=== PATIENT | female | born 1935 | race Caucasian/White ===

== ENCOUNTER 2019-02-15 16:57 | Inpatient (IN) ==
[2019-02-15 17:52] LABS: URINE SOURCE CATH
[2019-02-15 17:55] LABS: BILIRUBIN URINE SMALL (NEGATIVE); BLOOD URINE MODERATE (NEGATIVE); COLOR YELLOW; GLUCOSE URINE NEGATIVE (NEGATIVE); KETONE URINE NEGATIVE (NEGATIVE); LEUKOCYTES URINE LARGE (NEGATIVE); NITRITE URINE NEGATIVE (NEGATIVE); PH URINE 5.5; PROTEIN URINE 70 mg/dL (NEGATIVE); SP GRAVITY URINE 1.016; TURBIDITY URINE TURBID (CLEAR); UROBILINOGEN URINE 2 mg/dL (NORMAL)
[2019-02-15] MEDS ORDERED: ROCEPHIN IV ONE (17:58)
[2019-02-15] MEDS ORDERED: MORPHINE IV ONE (18:01)
[2019-02-15] MEDS ORDERED: ZOFRAN IV ONE (18:02)
[2019-02-15 18:04] LABS: URINE WBC TNTC /HPF (<10)
[2019-02-15 18:05] LABS: BASO# 0.03 X1000 (0.0-0.2); BASO% 0.2 % (0.0-0.8); EOS# 0.01 X1000 (0.0-0.7); EOS% 0.1 % (0.0-10.0); HEMATOCRIT 40.9 % (37.0-47.0); HEMOGLOBIN 13.2 g/dL (12.0-16.0); IMM GRAN# 0.16 X1000 (0.0-0.04); IMM GRAN% 0.9 % (0.0-0.5); LYMPH# 1.33 X1000 (1.2-3.4); LYMPH% 7.7 % (20.5-51.1); MCH 25.2 PG (27-31); MCHC 32.3 g/dL (33-37); MCV 78.1 FL (81-99); MONO# 0.98 X1000 (0.11-0.59); MONO% 5.7 % (1.7-9.3); NEUT# 14.66 X1000 (1.4-6.5); NEUT% 85.4 % (42.2-75.2); PLT 200 X1000 (130-400); RBC 5.24 XMIL (4.2-5.4); RDW 19.5 % (11.5-14.5); WBC 17.17 X1000 (4.8-10.8)
[2019-02-15 18:06] LABS: LYMPHS 9 % (21-51); MONO 6 % (1-9); SEGS 85 % (42-75); UR EPITHELIAL CELLS <10 /HPF (<10); URINE BACTERIA 4+ /HPF; URINE RBC 20-40 /HPF (<10)
[2019-02-15 18:07] LABS: URINE CASTS GRANULAR PRESENT; URINE CRYSTALS NONE SEEN; URINE SMALL ROUND CELLS NONE SEEN; URINE YEAST NONE SEEN
[2019-02-15 18:13] LABS: INR 1.06; PROTIME 14.3 Seconds (11.0-16.0)
[2019-02-15 18:14] LABS: PTT 30.3 Seconds (22.3-41.8)
[2019-02-15 18:23] LABS: ALBUMIN 3.3 g/dL (3.5-5.0); CALCIUM 8.5 mg/dL (8.8-10.2); CREATININE 3.5 mg/dL (0.5-0.9); POTASSIUM 4.5 mmol/L (3.5-5.1); TOTAL BILIRUBIN 2.1 mg/dL (0.20-1.00); TOTAL PROTEIN 6.5 g/dL (6.3-8.3)
[2019-02-15 18:26] LABS: BLOOD TYPE ARTERIAL; HCO3-(ACT) 25.6 mmoll (20.0-26.0); METHB 1.3 % (0.0-1.5); O2(CT) 17.9 mL/dL (15.0-23.0); PCO2(98.6) 53 mmHg (35-45); PO2(98.6) 67 mmHg (60-100); SAMPLE BLOOD; SAO2 95.5 % (95.0-100.0); THB 13.8 g/dL (11.5-17.4); pH(98.6) 7.33 (7.35-7.45)
[2019-02-15 18:28] LABS: ALLEN TEST YES; MODALITY CANNULA
[2019-02-15] MEDS ORDERED: NS 1,000 ML IV ONE ×3 (18:28→20:53)
[2019-02-15 18:37] LABS: CK INDEX 0.9 (0.0-2.5); CK-MB 5.43 ng/mL (0.0-5.0)
--- NOTE | 2019-02-15 18:39 | EKG Report ---
Test Performed on : 02/15/2019 5:37:07 PM Test Reason : WEAKNESS Blood Pressure : / mmHG Vent. Rate : 102 BPM Atrial Rate : 102 BPM P-R Int : 142 ms QRS Dur : 092 ms QT Int : 358 ms P-R-T Axes : 064 076 076 degrees QTc Int : 466 ms Sinus tachycardia. with premature atrial complexes. in a pattern of bigeminy. ST elevation, consider inferior injury or acute infarct ACUTE TN / STEMI Consider right ventricular involvement in acute inferior infarct Abnormal ECG When compared with ECG of 15-FEB-2019 17:32, (Unconfirmed) premature atrial complexes. are now present Unconfirmed Result
--- NOTE | 2019-02-15 18:52 | PROVIDER DOCUMENTATION ---
This chart was entered by Leatha Baxter Scribe, acting as scribe for Faby Henriquez MD. HPI-General Adult - General Source: patient, EMS (first response) - History of Present Illness -Gen Adult Nature of Presenting Problems: 83 yowf presents to the ed via ems with multiple complaints. per ems pt was sitting in the floor when they aos and could not get herself up. they used a stacy extrusion die corrector to lift pt to stretcher. pt sts she has had n/v/x1 today, weakness and fatigue, decreased appetite, sob and strong smell to urine. pt on exam c/o abd pain with palpation and is in mild distress Location of Pain/Injury: reports: generalized (weakness and fatigue) Quality of Pain: reports: other (c/o fatigue and weakness but no pain) Severity: reports: moderate Onset/Duration: reports: unsure Timing: reports: still present Context/Activities at Onset: reports: light activity Modifying Factors: improves with: nothing Associated Symptoms: reports: genitourinary problems, loss of appetite, malaise, nausea, shortness of breath, vomiting (x1), weakness, trouble walking. denies: chest pain, diarrhea, fever/chills, headaches, syncope Similar Symptoms Previously?: No Recently seen or treated by another doctor?: No <Faby Henriquez - Last Filed: 02/15/19 18:50> <Tj Fam - Last Filed: 02/15/19 20:24> - General Chief Complaint: Weakness Stated Complaint: weakness Time Seen by Provider: 02/15/19 17:03 Allergies/Adverse Reactions: Patient Allergies Allergy/AdvReac Type Severity Reaction Status Date / Time No Known Allergies Allergy Verified 02/15/19 19:51 Home Medications: Home Medication List Medication Instructions Recorded Confirmed Last Taken Type Allopurinol [Zyloprim] 300 mg PO DAILY 01/18/12 11/13/18 01/19/12 09:00 History Aspirin 325 mg PO DAILY 01/18/12 11/13/18 01/13/12 09:00 History Furosemide 80 mg PO DAILY 01/18/12 11/13/18 01/19/12 09:00 History Ipratropium/Albuterol Sulfate 3 ml IH 4X01/18/12 11/13/18 11/13/18 History [Iprat-Albut 0.5-3(2.5) mg/3 ml] Lisinopril/Hydrochlorothiazide 1 each PO DAILY 01/18/12 11/13/18 01/19/12 09:00 History [Lisinopril-Hctz 20-12.5 mg Tab] Metformin HCl 500 mg PO DAILY 01/18/12 11/13/18 01/19/12 09:00 History Review of Systems - Adult - REVIEW OF SYSTEMS - ADULT Constitutional: reports: see HPI, fatique. denies: chills, fever Eyes: reports: no symptoms reported Ears, Nose, Mouth & Throat: reports: no symptoms reported Cardiovascular: reports: see HPI, edema. denies: chest pain, palpitations Respiratory: reports: see HPI, shortness of breath, wheezing. denies: cough Gastrointestinal: reports: see HPI, nausea, vomiting. denies: abdominal pain, diarrhea Genitourinary: reports: see HPI, frequent UTI's, other (strong urine odor) Musculoskeletal: reports: see HPI, other (generalized weakness) Integumentary: reports: no symptoms reported Neurological: denies: dizziness/vertigo, headache/migraines Psychiatric: reports: no symptoms reported Endocrine: reports: no symptoms reported Hematologic/Lymphatic: reports: no symptoms reported Allergic/Immunologic: reports: no symptoms reported All Other Systems: Reviewed and Negative <Faby Henriquez - Last Filed: 02/15/19 18:50> Past History - Adult - PAST MEDICAL HISTORY-ADULT Review of Records: reports: Old Records Reviewed, Nursing Assessment Review, Medications Reviewed, Social history reviewed & non-contributory. Major Childhood Illnesses: reports: denies history Cardiovascular: reports: HTN Respiratory: reports: COPD, sleep apnea Gastrointestinal: reports: GERD Obstetrical/Gynecological: reports: denies history Genitourinary: reports: denies history Musculoskeletal: reports: denies history Neurological: reports: denies history Endocrine/Immune: reports: Diabetes Diabetes Type: Type 2 Other Conditions: reports: denies history - PRIOR SURGERIES/PROCEDURES Surgical/Procedure History: reports: joint replacement, back/neck - IMMUNIZATION STATUS Childhood Immunizations: See Nurse Assessment Flu Vaccine: See Nurse Assessment - FAMILY HISTORY Family History: reviewed, not pertinent - SOCIAL HISTORY Smoking: quit greater than 1 year Substance Use: denies Living Situation: family <Faby Henriquez - Last Filed: 02/15/19 18:50> Physical Exam-General - PHYSICAL EXAM-ADULT Initial Vital Signs Reviewed: Yes - CONSTITUTIONAL General Appearance: alert, mild distress, obese - EYES Eyes: PERRL/EOMI, pink conjunctivae - HEAD, EARS, NOSE, MOUTH & THROAT HENMT: moist mucous membranes - NECK Neck: full range of motion, supple, normal inspection - RESPIRATORY Respiratory: chest non-tender, wheezing, increased rate (31) - CARDIOVASCULAR Cardiovascular: normal peripheral pulses, tachycardia (103) - CHEST (BREASTS) Chest/Breast: deferred - GASTROINTESTINAL (ABDOMEN) Abdominal Exam: soft, tenderness (generalized), other (c/o nausea) - GENITOURINARY Female Genitalia/Pelvic Exam: deferred, other (strong odor of urine) Rectal Exam: deferred Hemoccult Exam: deferred - MUSCULOSKELETAL Back Exam: no CVA tenderness, no vertebral tenderness Extremity: normal capillary refill, pelvis stable, other (unable to ambulate secondary to weakness and fatigue per pt) - SKIN Integumentary: normal color, normal turgor, warm/dry - NEUROLOGIC Neurologic: grossly normal - PSYCHIATRIC Psych/Mental Status: normal mood/affect, normal thought content, normal thought process, oriented x 3 <Faby Henriquez - Last Filed: 02/15/19 18:50> Progress - PLAN OF CARE/RESULTS Result Diagrams: 02/15/19 17:45 02/15/19 17:45 - REASSESSMENT Reassessment #1 Time Reassessed: 17:38 (dr henriquez at bedside ) Status: unchanged - EKG 1 Time of EKG reading by physician:: 17:37 EKG Read and Signed by:: Faby Henriquez EKG Interpretation (*Must complete 3 of following elements*): Abnormal Rate: 102 Rhythm: sinus tach w/ premature atrial complexes inpattern bigeminy QRS: other (q wave in 3) Comments: nonspecific EKG, all changes noted by dr henriquez - CHANGE OF SHIFT REPORT (ED Provider) 1 Report Given and Care Transferred to:: DR Fam Time of Transfer: 19:00 Items Pending: Labs <Faby Henriquez - Last Filed: 02/15/19 18:50> - PLAN OF CARE/RESULTS Progress/Plan/Lab Results: Vital Signs - 8 hr 02/15/19 17:09 02/15/19 18:01 02/15/19 18:30 Temperature 98 F Pulse Rate 99 H 103 H 100 H Respiratory Rate 31 H 26 H 23 Blood Pressure 104/98 172/116 148/82 O2 Sat by Pulse Oximetry 97 94 L 94 L 02/15/19 19:48 Temperature Pulse Rate 92 H Respiratory Rate 20 Blood Pressure 126/86 O2 Sat by Pulse Oximetry 95 Laboratory Results - last 24 hr 02/15/19 02/15/19 02/15/19 17:45 17:45 17:45 WBC 17.17 H RBC 5.24 Hgb 13.2 Hct 40.9 MCV 78.1 L MCH 25.2 L MCHC 32.3 L RDW Std Deviation 19.5 H Plt Count 200 MPV Not Reportable Immature Gran % (Auto) 0.9 H Neut % (Auto) 85.4 H Lymph % (Auto) 7.7 L Bea[place]gard % (Auto) 5.7 Eos % (Auto) 0.1 Baso % (Auto) 0.2 Immature Gran # (Auto) 0.16 H Neut # (Auto) 14.66 H Lymph # (Auto) 1.33 Bea[place]gard # (Auto) 0.98 H Eos # (Auto) 0.01 Baso # (Auto) 0.03 Segmented Neutrophils 85 H Lymphocytes 9 L Monocytes 6 PT 14.3 INR 1.06 PTT (Actin FS) 30.3 Specimen Type Sample Site pH pCO2 pO2 HCO3 Base Excess Oxyhemoglobin ABG O2 Sat (Calculated) ABG O2 Saturation ABG Carboxyhemoglobin ABG Methemoglobin Dariusz Test A-a O2 Difference Total Hemoglobin Lactate Liter Flow Blood Gas Modality FiO2 % Sodium 140 Potassium 4.5 Chloride 96 L Carbon Dioxide 26 Anion Gap 18 BUN 77 H Creatinine 3.5 H Estimated GFR/1.73 m2 13 BUN/Creatinine Ratio 22 Glucose 175 H Calculated Osmolality 307 Calcium 8.5 L Total Bilirubin 2.10 H AST 94 H ALT 85 H Alkaline Phosphatase 176 H Creatine Kinase 609 H Creatine Kinase Index 0.9 CK-MB (CK-2) 5.43 H Troponin T High Sens Total Protein 6.5 Albumin 3.3 L Globulin 3.0 Albumin/Globulin Ratio 1.0 Plasma Lactate Urine Source Urine Color Urine Turbidity Urine pH Ur Specific [place] Urine Protein Ur Glucose (Stick) Ur Ketones (Stick) Urine Blood Urine Nitrite Urine Bilirubin Urobilinogen Dipstick Urine Leukocytes Urine WBC (Auto) Urine RBC (Auto) U Epithel Cells (Auto) Urine Bacteria (Auto) Urine Crystals Small Round Cells Urine Casts Urine Yeast-like Cells 02/15/19 02/15/19 02/15/19 17:45 17:45 18:16 WBC RBC Hgb Hct MCV MCH MCHC RDW Std Deviation Plt Count MPV Immature Gran % (Auto) Neut % (Auto) Lymph % (Auto) Bea[place]gard % (Auto) Eos % (Auto) Baso % (Auto) Immature Gran # (Auto) Neut # (Auto) Lymph # (Auto) [place] # (Auto) Eos # (Auto) Baso # (Auto) Segmented Neutrophils Lymphocytes Monocytes PT INR PTT (Actin FS) Specimen Type ARTERIAL Sample Site L RADIAL pH 7.33 L pCO2 53 H* pO2 67 HCO3 25.6 Base Excess 1.0 Oxyhemoglobin 92.0 L ABG O2 Sat (Calculated) 17.9 ABG O2 Saturation 95.5 ABG Carboxyhemoglobin 2.40 ABG Methemoglobin 1.3 Dariusz Test YES A-a O2 Difference 95.0 Total Hemoglobin 13.8 Lactate 1.40 Liter Flow 3.0 Blood Gas Modality CANNULA FiO2 % 32.0 Sodium Potassium Chloride Carbon Dioxide Anion Gap BUN Creatinine Estimated GFR/1.73 m2 BUN/Creatinine Ratio Glucose Calculated Osmolality Calcium Total Bilirubin AST ALT Alkaline Phosphatase Creatine Kinase Creatine Kinase Index CK-MB (CK-2) Troponin T High Sens 64 H* Total Protein Albumin Globulin Albumin/Globulin Ratio Plasma Lactate Urine Source CATH Urine Color YELLOW Urine Turbidity TURBID Urine pH 5.5 Ur Specific [place] 1.016 Urine Protein 70 A Ur Glucose (Stick) NEGATIVE Ur Ketones (Stick) NEGATIVE Urine Blood MODERATE A Urine Nitrite NEGATIVE Urine Bilirubin SMALL A Urobilinogen Dipstick 2 A Urine Leukocytes LARGE A Urine WBC (Auto) TNTC A Urine RBC (Auto) 20-40 A U Epithel Cells (Auto) <10 Urine Bacteria (Auto) 4+ Urine Crystals NONE SEEN Small Round Cells NONE SEEN Urine Casts GRANULAR PRESENT Urine Yeast-like Cells NONE SEEN 02/15/19 18:30 WBC RBC Hgb Hct MCV MCH MCHC RDW Std Deviation Plt Count MPV Immature Gran % (Auto) Neut % (Auto) Lymph % (Auto) Bea[place] % (Auto) Eos % (Auto) Baso % (Auto) Immature Gran # (Auto) Neut # (Auto) Lymph # (Auto) [place] # (Auto) Eos # (Auto) Baso # (Auto) Segmented Neutrophils Lymphocytes Monocytes PT INR PTT (Actin FS) Specimen Type Sample Site pH pCO2 pO2 HCO3 Base Excess Oxyhemoglobin ABG O2 Sat (Calculated) ABG O2 Saturation ABG Carboxyhemoglobin ABG Methemoglobin Dariusz Test A-a O2 Difference Total Hemoglobin Lactate Liter Flow Blood Gas Modality FiO2 % Sodium Potassium Chloride Carbon Dioxide Anion Gap BUN Creatinine Estimated GFR/1.73 m2 BUN/Creatinine Ratio Glucose Calculated Osmolality Calcium Total Bilirubin AST ALT Alkaline Phosphatase Creatine Kinase Creatine Kinase Index CK-MB (CK-2) Troponin T High Sens Total Protein Albumin Globulin Albumin/Globulin Ratio Plasma Lactate 1.4 Urine Source Urine Color Urine Turbidity Urine pH Ur Specific [place] Urine Protein Ur Glucose (Stick) Ur Ketones (Stick) Urine Blood Urine Nitrite Urine Bilirubin Urobilinogen Dipstick Urine Leukocytes Urine WBC (Auto) Urine RBC (Auto) U Epithel Cells (Auto) Urine Bacteria (Auto) Urine Crystals Small Round Cells Urine Casts Urine Yeast-like Cells Orders Category Date Time Status Cardiac Monitoring DIRECTED Care 02/15/19 17:26 Completed IV Insertion ORDERED Care 02/15/19 17:26 Completed Notify MD of + Sepsis Screen NOW Care 02/15/19 17:26 Completed Notify Physician As Ordered Care 02/15/19 17:26 Completed CHEST-1 VIEW [RAD] Stat Exams 02/15/19 17:[address] ABDOMEN/PELVIS W/O CONTRAST [CT] Stat Exams 02/15/19 17:43 Completed ABG [RESP] Routine Lab 02/15/19 18:16 Completed BLOOD CULTURE [BLDCUL] Stat Lab 02/15/19 17:29 Ordered CBC WITH DIFF [HEME] Stat Lab 02/15/19 17:45 Completed CK PROFILE [SP CHEM] Stat Lab 02/15/19 17:45 Completed COMPREHENSIVE METABOLIC PANEL [CHEM] Stat Lab 02/15/19 17:45 Completed LACTATE, PLASMA [CHEM] Lab 02/15/19 18:30 Completed LACTATE, PLASMA [CHEM] Lab 02/15/19 20:30 Uncollected LACTATE, PLASMA [CHEM] Lab 02/15/19 23:30 Uncollected PROTIME WITH INR [COAG] Stat Lab 02/15/19 17:45 Completed PTT [COAG] Stat Lab 02/15/19 17:45 Completed TROPONIN T HIGH SENSITIVITY Stat Lab 02/15/19 17:45 Completed URINALYSIS W/POSS RFLX CULT [URINALYSIS] Stat Lab 02/15/19 17:45 Completed URINE CULTURE [RM] Routine Lab 02/15/19 18:06 Ordered URINE MANUAL MICROSCOPIC [URINALYSIS] Stat Lab 02/15/19 17:45 Completed 0.9% Sodium Chloride Inj [Ns] 1,000 ml Med 02/15/19 18:28 Discontinued IV 999 mls/hr 0.9% Sodium Chloride Inj [Ns] 1,000 ml Med 02/15/19 18:28 Discontinued IV 999 mls/hr CefTRIAXONE [Rocephin] Med 02/15/19 17:58 Discontinued 1 gm IV NOW ONE Morphine Med 02/15/19 18:01 Discontinued 4 mg IV NOW ONE Ondansetron [Zofran] Med 02/15/19 18:02 Discontinued 4 mg IV NOW ONE Water, Sterile Inj [Sterile Water Inj.] Med 02/15/19 19:27 Discontinued 10 ml .ROUTE .STK-MED ONE Oxygen Device Stat Oth 02/15/19 17:26 Active EKG [EKG] Stat Ther 02/15/19 17:37 Draft Result Diagrams: 02/15/19 17:45 02/15/19 17:45 - CONSULTS/PCP/HOSPITALIST Notification #1 *Consult/PCP/Hospitalist*: DR GARCES Time Discussed: 20:22 Consult Disposition: Admit <Tj Fam - Last Filed: 02/15/19 20:24> Departure - Critical Care Note This patient required my direct & personal management of CC.: No <PanteraFabyambrose Moss - Last Filed: 02/15/19 18:50> - Departure Date of Disposition Decision: 02/15/19 (N) Time of Disposition Decision: 20:22 Certified Medical Emergency: Emergent <Tj Fam - Last Filed: 02/15/19 20:24> - Departure DIAGNOSIS: UTI (urinary tract infection), Pneumonia, Leukocytosis, Dehydration, Elevated troponin, LFT elevation Disposition: ADMITTED INPATIENT 09 Condition: Fair Referrals and Follow-Ups: None,PCP [Primary Care Provider] - Attestation - Physician/ ÁNGEL Attestation Patient care was provided by Advanced Practice Provider:: No The physician spent face to face time with patient:: Yes Advanced Practice Provider documentation review:: Supervising physician onsite and consulted in the evaluation and care of this patient. The physician did have a face to face encounter with the patient. <Faby Henriquez - Last Filed: 02/15/19 18:50> - Physician/ ÁNGEL Attestation The physician spent face to face time with patient:: Yes Advanced Practice Provider documentation review:: Supervising physician onsite and consulted in the evaluation and care of this patient. The physician did have a face to face encounter with the patient. <Tj Fam - Last Filed: 02/15/19 20:24> This chart was documented by the indicated scribe, (Leatha Baxter Scribe) and accurately reflects the services I performed and decisions made by , Faby Henriquez MD, as attested by the provider's signature.
--- NOTE | 2019-02-15 19:19 | Diag Imaging Result Doc PS360 ---
EXAM: CT ABDOMEN/PELVIS W/O CONTRAST 02/15/2019 HISTORY: Left side abdominal pain and tenderness TECHNIQUE: This exam was performed using automated exposure control, adjustment of mA or kV according to patient size, and/or use of iterative reconstruction technique. COMMENT: There is patchy atelectasis or pneumonia in the costophrenic sulci bilaterally. There are calcified granulomata in the spleen. There are granulomata in the liver there are small stones layering dependently in the gallbladder. The gallbladder is slightly distended. There are atherosclerotic calcifications in the aorta and its branches. There are apparent stones in the right kidney. There are some vascular calcifications in both kidneys. There is no evidence of hydronephrosis. There is infrarenal abdominal aortic aneurysm. The aorta is 2.9 cm in diameter. There is some diverticulosis in the sigmoid colon without evidence of active diverticulitis. The appendix is normal in appearance. There is a fairly large amount of stool in the rectum. There is a Sin catheter in the bladder. There is a bone island in the left ischium. There is spinal stenosis at L4-5. IMPRESSION: Cholelithiasis. Nephrolithiasis. Diverticulosis coli. Mild constipation. Bibasilar atelectasis versus pneumonia. Electronically signed by Justin Richards 02/15/2019 7:16 PM
[2019-02-15] MEDS ORDERED: STERILE WATER INJ. ONE (19:27)
--- NOTE | 2019-02-15 19:27 | Diag Imaging Result Doc PS360 ---
EXAM: CHEST-1 VIEW 02/15/2019 HISTORY: sepsis TECHNIQUE: Semiupright AP chest COMMENT: There is cardiomegaly. There is worsening right basilar atelectasis. The inspiration is less optimal than on 10/30/2018. IMPRESSION: Atelectasis versus pneumonia both lower lobes. Electronically signed by Justin Richards 02/15/2019 7:25 PM
[2019-02-15] MEDS ORDERED: ZOFRAN IV PRN (20:53)
[2019-02-15] MEDS: DUONEB (A & A) INH SCH (23:41)
[2019-02-15] MEDS ORDERED: PNEUMOVAX 23 IM ONE (23:50)
[2019-02-16] MEDS: DUONEB (A & A) INH SCH ×6 (03:21→23:15)
[2019-02-16] MEDS ORDERED: LEVAQUIN 500 MG/D5W 500 MG/100 ML IVPB IV ONE (13:16)
--- NOTE | 2019-02-16 13:43 | PROGRESS NOTE ---
DATE: 02/16/2019 This is an 83-year-old female who presented to the ER yesterday afternoon after she was found on the floor of her apartment where she lives alone, could not get up, was brought to the emergency room. She had had a preceding gastrointestinal illness manifested mostly by vomiting, not diarrhea. No blood loss. No fever or chills. In the ER, she had a CT of the abdomen showing gallstones, kidney stones, and no other pathology. She has been hurting in the left side of her ribcage. It is hard for her to sit up or be pulled up or lifted up. It is hard for her to take a deep breath. It hurts even when even we auscultate her left lung. We are going to a CT thorax plain to see if there are some fractured ribs there. I am putting her prophylactic Lovenox. She has a nasty urine that is pyuria, hematuria. Chest x-ray shows mild cardiomegaly, an area in the lung could be atelectatic versus pneumonic but she is not having a cough, has not run a fever since she has been here in the hospital. The BUN is up in the 70s, creatinine is quite high as well. We are going to rehydrate her, keep her on antibiotics. Cultures are pending. She normally takes allopurinol, we are not going to give her that because of her renal function. She normally takes metformin likewise we are not going to use it because of her renal function, and we are not going to use her Lasix and diuretic therapy because of her renal function. Legs are trace edema, otherwise negative. She has diminished breath sounds, poor inspiratory effort. We will follow her up. cc: Mehdi Michael MD
[2019-02-16 14:41] LABS: ALBUMIN 2.7 g/dL (3.5-5.0); CALCIUM 7.8 mg/dL (8.8-10.2); CREATININE 2.6 mg/dL (0.5-0.9); POTASSIUM 4.9 mmol/L (3.5-5.1); TOTAL BILIRUBIN 1.1 mg/dL (0.20-1.00); TOTAL PROTEIN 6.5 g/dL (6.3-8.3)
--- NOTE | 2019-02-16 16:13 | Diag Imaging Result Doc PS360 ---
EXAM: CT THORAX W/O CONTRAST HISTORY: pain TECHNIQUE: CT chest without intravenous contrast COMPARISON: None. FINDINGS: The heart is enlarged. Prominent atherosclerosis. The tiny bilateral pleural effusions. The vessels are distended. There are calcified left hilar lymph nodes with granuloma. There are increased interstitial markings in the lower lungs and lingular segment of the left upper lobe. There are small mediastinal nodes. Mild emphysema. IMPRESSION: 1.Cardiomegaly with pulmonary edema and tiny pleural effusions 2.Basilar atelectasis versus small infiltrates 3.There is evidence of a prior granulomatous infection 4.Prominent atherosclerosis including the coronary arteries. 5.Mild emphysema This exam was performed using automated exposure control, adjustment of mA or kV according to patient size, and/or use of iterative reconstruction technique. Electronically signed by Gildardo Chávez 02/16/2019 4:11 PM
[2019-02-16] MEDS: NS 2,000 ML IV SCH (18:01)
[2019-02-17] MEDS: DUONEB (A & A) INH SCH ×6 (03:17→23:01)
[2019-02-17] MEDS: LOVENOX SUBQ SCH (05:13)
[2019-02-17] MEDS: NS 2,000 ML IV SCH (12:55)
[2019-02-17 14:18] LABS: BE -1.9 mmoll (-3.0-3.0); BLOOD TYPE ARTERIAL; HCO3-(ACT) 23.3 mmoll (20.0-26.0); METHB 1.4 % (0.0-1.5); O2(CT) 14.8 mL/dL (15.0-23.0); PCO2(98.6) 43 mmHg (35-45); PO2(98.6) 57 mmHg (60-100); SAMPLE BLOOD; THB 11.8 g/dL (11.5-17.4); pH(98.6) 7.35 (7.35-7.45)
[2019-02-17 14:20] LABS: ALLEN TEST YES; MODALITY CANNULA
[2019-02-17 14:22] LABS: BASO# 0.05 X1000 (0.0-0.2); BASO% 0.4 % (0.0-0.8); EOS# 0.03 X1000 (0.0-0.7); EOS% 0.2 % (0.0-10.0); HEMATOCRIT 33.1 % (37.0-47.0); HEMOGLOBIN 10.8 g/dL (12.0-16.0); IMM GRAN% 2.2 % (0.0-0.5); LYMPH# 0.78 X1000 (1.2-3.4); LYMPH% 5.8 % (20.5-51.1); MCH 25.1 PG (27-31); MCHC 32.6 g/dL (33-37); MONO# 2.09 X1000 (0.11-0.59); MONO% 15.4 % (1.7-9.3); NEUT# 10.28 X1000 (1.4-6.5); PLT 99 X1000 (130-400); RDW 19.3 % (11.5-14.5); WBC 13.53 X1000 (4.8-10.8)
[2019-02-17 14:43] LABS: ALBUMIN 2.4 g/dL (3.5-5.0); CALCIUM 7.6 mg/dL (8.8-10.2); CREATININE 1.8 mg/dL (0.5-0.9); POTASSIUM 3.5 mmol/L (3.5-5.1); TOTAL BILIRUBIN 1.1 mg/dL (0.20-1.00); TOTAL PROTEIN 5.6 g/dL (6.3-8.3)
[2019-02-17 14:47] LABS: LYMPHS 11 % (21-51); MONO 6 % (1-9); SEGS 83 % (42-75)
[2019-02-17 14:48] LABS: ANISOCYTOSIS 1+; MICROCYTOSIS OCCASIONAL; POIKILOCYTOSIS OCCASIONAL; TARGET CELLS 1+
--- NOTE | 2019-02-17 15:17 | Diag Imaging Result Doc PS360 ---
EXAM: CHEST-PORTABLE INDICATION: chest pain TECHNIQUE: One view COMPARISON: 02/15/2019 FINDINGS: Centimeters the previous study, there has been development of a moderate-sized left pleural effusion with adjacent atelectasis and/or infiltrate. The atelectasis or infiltrate at the right lung base is improved. No other new consolidation is identified. Cardiac silhouette is stable. IMPRESSION: Interval development of a moderate size left effusion. Electronically signed by Bassam Stock 02/17/2019 3:15 PM
--- NOTE | 2019-02-17 15:57 | EKG Report ---
Test Performed on : 02/17/2019 2:06:06 PM Test Reason : CP Blood Pressure : / mmHG Vent. Rate : 111 BPM Atrial Rate : 111 BPM P-R Int : 144 ms QRS Dur : 104 ms QT Int : 344 ms P-R-T Axes : 064 044 062 degrees QTc Int : 467 ms Sinus tachycardia. Low voltage QRS Cannot rule out Anterior infarct , age undetermined Abnormal ECG When compared with ECG of 15-FEB-2019 17:37, (Unconfirmed) premature atrial complexes. are no longer present QRS voltage has decreased Minimal criteria for Anterior infarct are now present ST no longer elevated in Inferior leads Nonspecific T wave abnormality now evident in Anterior leads Confirmed by Mehdi Michael MD ([id number]) on 02/27/2019 6:34:14 AM
[2019-02-17] MEDS: ROCEPHIN 1 GM in NS 50 ML IV SCH (17:42)
[2019-02-17] MEDS: ZITHROMAX 500 MG/NS 500 MG/250 ML IVPB IV SCH (17:43)
[2019-02-17] MEDS: TYLENOL PO PRN (17:59)
[2019-02-18] MEDS: TYLENOL PO PRN (00:05)
[2019-02-18] MEDS: DUONEB (A & A) INH SCH ×6 (03:28→23:13)
[2019-02-18] MEDS: LOVENOX SUBQ SCH (05:43)
--- NOTE | 2019-02-18 09:33 | PROGRESS NOTE ---
DATE: 02/17/2019 SUBJECTIVE: She is having a little bit more problems breathing. OBJECTIVE: Vital signs: Temperature was 97.7, pulse was 112, respiratory rate 24, blood pressure 134/57. She had no significant presacral or pretibial edema. She had sort of a flushed face. Chest with diminished breath sounds. Abdomen soft. Regular rate and rhythm on her heart exam. DIAGNOSTIC DATA: Her white count has dropped from 17,000 to 13,530. Hematocrit has gone from 40.9 to 33.1 with some cautious rehydration. Platelet count went from 200,000 to 99,000, and we are going to repeat that on 02/18/2019. Blood gases showed pH of 7.35, pCO2 of 43, pO2 of 57, FiO2 was 36, carboxyhemoglobin was 3.9. Gases seem to be a bit better. Her BUN is now 62, creatinine 1.8. BNP is 2285. Her calcium is 7.6, albumin 2.4. Urine culture is growing out gram- negative leia which is from a cathed urine. ASSESSMENT AND PLAN: I talked to pharmacy. We have changed up her antibiotics, mostly in regards to her chest x-ray which showed sort of an evolving effusion, atelectasis on the left side. So we are doing Rocephin and Zithromax. Rocephin does cover her urine as well. cc: Mehdi Michael MD
--- NOTE | 2019-02-18 09:35 | PROGRESS NOTE ---
DATE: 02/18/2019 SUBJECTIVE: The patient seems to be a little better today. On 02/18/2019 microbiology, she is growing out E. coli from her urine, greater than 100,000 colonies, that is sensitive to Levaquin and sensitive to Rocephin. OBJECTIVE: Vital signs: Temperature is 98, pulse 100, respiratory rate 20, blood pressure 144/68, O2 saturation is 99% on nasal cannula. She was sleeping and feels a little better. ASSESSMENT AND PLAN: We are going to repeat lab today and see what is happening to her platelet count and BUN and creatinine. cc: Mehdi Michael MD
[2019-02-18 09:36] LABS: BASO# 0.06 X1000 (0.0-0.2); BASO% 0.4 % (0.0-0.8); EOS# 0.06 X1000 (0.0-0.7); EOS% 0.4 % (0.0-10.0); HEMATOCRIT 34.3 % (37.0-47.0); HEMOGLOBIN 11.3 g/dL (12.0-16.0); IMM GRAN# 0.55 X1000 (0.0-0.04); IMM GRAN% 4.1 % (0.0-0.5); LYMPH# 1.36 X1000 (1.2-3.4); LYMPH% 10.2 % (20.5-51.1); MCH 25.1 PG (27-31); MCHC 32.9 g/dL (33-37); MCV 76.1 FL (81-99); MONO# 2.38 X1000 (0.11-0.59); MONO% 17.8 % (1.7-9.3); NEUT# 8.95 X1000 (1.4-6.5); NEUT% 67.1 % (42.2-75.2); PLT 113 X1000 (130-400); RBC 4.51 XMIL (4.2-5.4); RDW 19.2 % (11.5-14.5); WBC 13.36 X1000 (4.8-10.8)
[2019-02-18 10:12] LABS: ALBUMIN 2.5 g/dL (3.5-5.0); CALCIUM 8.3 mg/dL (8.8-10.2); CREATININE 1.4 mg/dL (0.5-0.9); POTASSIUM 3.4 mmol/L (3.5-5.1); TOTAL BILIRUBIN 1.1 mg/dL (0.20-1.00); TOTAL PROTEIN 5.9 g/dL (6.3-8.3)
[2019-02-18] MEDS: NS 2,000 ML IV SCH ×2 (10:35→15:31)
[2019-02-18 10:42] LABS: LYMPHS 9 % (21-51); MONO 14 % (1-9); SEGS 77 % (42-75)
[2019-02-18] MEDS: ROCEPHIN 1 GM in NS 50 ML IV SCH (16:55)
[2019-02-18] MEDS: ZITHROMAX 500 MG/NS 500 MG/250 ML IVPB IV SCH (18:03)
[2019-02-19] MEDS: DUONEB (A & A) INH SCH ×6 (03:19→22:52)
[2019-02-19] MEDS: LOVENOX SUBQ SCH (06:32)
[2019-02-19] MEDS: NS 2,000 ML IV SCH ×2 (06:37→12:42)
--- NOTE | 2019-02-19 10:24 | Diag Imaging Result Doc PS360 ---
EXAM: CHEST-PORTABLE INDICATION: PNA TECHNIQUE: One view COMPARISON: 02/17/2019 FINDINGS: The moderate-sized left effusion with adjacent atelectasis and/or infiltrate is approximately stable. The milder right effusion with minimal adjacent atelectasis and/or infiltrate is also stable. No new consolidation is identified. Cardiac silhouette is stable. IMPRESSION: Stable chest. Electronically signed by Bassam Stock 02/19/2019 10:22 AM
[2019-02-19 10:42] LABS: BASO# 0.03 X1000 (0.0-0.2); BASO% 0.2 % (0.0-0.8); EOS# 0.07 X1000 (0.0-0.7); EOS% 0.4 % (0.0-10.0); HEMATOCRIT 36.2 % (37.0-47.0); HEMOGLOBIN 11.7 g/dL (12.0-16.0); IMM GRAN# 0.58 X1000 (0.0-0.04); IMM GRAN% 3.4 % (0.0-0.5); LYMPH# 2.09 X1000 (1.2-3.4); LYMPH% 12.3 % (20.5-51.1); MCH 24.7 PG (27-31); MCHC 32.3 g/dL (33-37); MCV 76.4 FL (81-99); MONO# 2.44 X1000 (0.11-0.59); MONO% 14.4 % (1.7-9.3); NEUT# 11.76 X1000 (1.4-6.5); NEUT% 69.3 % (42.2-75.2); PLT 145 X1000 (130-400); RBC 4.74 XMIL (4.2-5.4); RDW 19.4 % (11.5-14.5); WBC 16.97 X1000 (4.8-10.8)
[2019-02-19 10:57] LABS: ALBUMIN 2.1 g/dL (3.5-5.0); CALCIUM 8.3 mg/dL (8.8-10.2); CREATININE 1.2 mg/dL (0.5-0.9); POTASSIUM 3.6 mmol/L (3.5-5.1); TOTAL BILIRUBIN 0.9 mg/dL (0.20-1.00)
[2019-02-19 11:12] LABS: LYMPHS 12 % (21-51); MICROCYTOSIS 1+; MONO 12 % (1-9); SEGS 76 % (42-75)
[2019-02-19 11:13] LABS: LARGE PLATELETS 1+
[2019-02-19 11:14] LABS: ANISOCYTOSIS 1+
[2019-02-19] MEDS: TYLENOL PO PRN (12:49)
[2019-02-19] MEDS: ROCEPHIN 1 GM in NS 50 ML IV SCH (16:07)
[2019-02-19] MEDS: ZITHROMAX 500 MG/NS 500 MG/250 ML IVPB IV SCH (17:33)
[2019-02-19] MEDS ORDERED: LINZESS PO ONE (18:06)
[2019-02-20] MEDS: DUONEB (A & A) INH SCH ×6 (03:09→22:39)
[2019-02-20] MEDS: NS 2,000 ML IV SCH ×3 (03:14→20:35)
[2019-02-20] MEDS: LOVENOX SUBQ SCH (05:23)
--- NOTE | 2019-02-20 08:49 | Diag Imaging Result Doc PS360 ---
CHEST-PORTABLE - 02/20/2019 INDICATION: sob COMPARISON: 02/19/2019 FINDINGS: Stable moderate left basilar pleural effusion. Otherwise no infiltrates. There is probably a trace right pleural effusion which has improved. Stable cardiomegaly. IMPRESSION: Slight improvement from prior. Electronically signed by Cristiano Lynn 02/20/2019 8:46 AM
[2019-02-20] MEDS ORDERED: FLAGYL 500 MG/NS 500 MG/100 ML IVPB IV SCH (09:00)
[2019-02-20 09:40] LABS: BE -2.3 mmoll (-3.0-3.0); BLOOD TYPE ARTERIAL; METHB 1.3 % (0.0-1.5); O2(CT) 15.7 mL/dL (15.0-23.0); O2HB 91.9 % (95.0-99.0); PCO2(98.6) 38 mmHg (35-45); PO2(98.6) 64 mmHg (60-100); SAMPLE BLOOD; THB 12.1 g/dL (11.5-17.4); pH(98.6) 7.38 (7.35-7.45)
[2019-02-20 09:43] LABS: ALLEN TEST YES; MODALITY CANNULA
[2019-02-20 12:31] LABS: BASO# 0.06 X1000 (0.0-0.2); BASO% 0.3 % (0.0-0.8); EOS# 0.05 X1000 (0.0-0.7); EOS% 0.2 % (0.0-10.0); HEMATOCRIT 34.6 % (37.0-47.0); HEMOGLOBIN 11.2 g/dL (12.0-16.0); IMM GRAN# 0.79 X1000 (0.0-0.04); IMM GRAN% 3.3 % (0.0-0.5); LYMPH# 2.55 X1000 (1.2-3.4); LYMPH% 10.7 % (20.5-51.1); MCH 24.7 PG (27-31); MCHC 32.4 g/dL (33-37); MCV 76.4 FL (81-99); MONO# 2.36 X1000 (0.11-0.59); MONO% 9.9 % (1.7-9.3); NEUT# 18.02 X1000 (1.4-6.5); NEUT% 75.6 % (42.2-75.2); PLT 170 X1000 (130-400); RBC 4.53 XMIL (4.2-5.4); RDW 19.2 % (11.5-14.5); WBC 23.83 X1000 (4.8-10.8)
[2019-02-20 12:55] LABS: ALBUMIN 2.1 g/dL (3.5-5.0); CALCIUM 8.3 mg/dL (8.8-10.2); POTASSIUM 3.5 mmol/L (3.5-5.1); TOTAL BILIRUBIN 0.8 mg/dL (0.20-1.00); TOTAL PROTEIN 5.9 g/dL (6.3-8.3)
[2019-02-20] MEDS ORDERED: MERREM 1 GM in NS 50 ML IV SCH (13:00)
[2019-02-20 13:39] LABS: ANISOCYTOSIS 1+; LARGE PLATELETS 1+; LYMPHS 17 % (21-51); MICROCYTOSIS OCCASIONAL; MONO 8 % (1-9); SEGS 75 % (42-75); TARGET CELLS 1+
--- NOTE | 2019-02-20 14:14 | HISTORY AND PHYSICAL ---
HISTORY OF PRESENT ILLNESS: This is an 83-year-old female who presented to the ER via EMS with multiple complaints. She could not get up, she fell on the floor at her house and was sitting on the floor when EMS arrived, and they could not get her up. They had to use a stacy language path to lift the patient to the stretcher. She states she has had a history of nausea and vomiting one time today, weakness, general fatigue, decreased appetite, short of breath, strong smell to her urine. The patient on exam complained of abdominal pain with palpation and was in mild distress. She is generally weak and fatigued but not really having any pain. In the ER, she related that she is taking allopurinol 300 daily, aspirin 325 daily, furosemide 80 daily, DuoNebs 3 times a day, lisinopril/hydrochlorothiazide 20/12.5, metformin 500 mg daily. REVIEW OF SYSTEMS: Her primary complaint was weakness and fatigue and problems with getting around her place. Denies any visual issues. Ears, nose and throat: No sinusitis, otitis or rhinitis. Cardiovascular: She has had some edema in her lower extremities. She denies any chest pain or palpitations. Respiratory: She has been short of breath. She has been wheezing. Denies any cough. Gastrointestinal: She has not been eating well lately. She is nauseated and has vomited but denies belly pain and diarrhea. Genitourinary: She relates a history of frequent UTIs and feels like she is having strong urine odor now compatible with another UTI. Musculoskeletal: Generalized weakness, overweight, hard to move around. Skin: No lesions or rashes. Neurologic: Denies dizziness, vertigo, headaches or migraines. Psychiatric: No issues. Endocrine: She is a diabetic but not having any significant consequences from diabetes. Hematologic: No history of clots, DVTs or bleeding disorders. No issues with significant allergies. PAST MEDICAL HISTORY: She has a history of COPD, history of sleep apnea. She has had reflux disease. She has had diabetes type 2 for some time. She has had some joint surgeries on her neck and her back. She is a smoker. DATABASE: From the ER, a chest x-ray showed there was cardiomegaly, there was worsening right basilar atelectasis comparative to a recent film. So she seemed to have atelectasis in both lobes versus pneumonia in both lobes. Her CT of the abdomen and pelvis showed there was patchy atelectasis or pneumonia in the costophrenic sulci bilaterally. There are calcified granuloma in the spleen. There are granuloma in the liver. There are small stones layering dependently in the gallbladder. The gallbladder is slightly distended. There are atherosclerotic calcifications in the aorta and its branches. There are apparent stones in the right kidney. There are some vascular calcifications in both kidneys. There is no evidence of hydronephrosis. There is infrarenal abdominal aortic aneurysm. The aorta is 2.9 in diameter. There is some diverticulosis in the sigmoid colon without evidence of active diverticulitis. The appendix is normal in appearance. There is a fairly large amount of stool in the rectum. There is a Sin catheter in the bladder. There is bony island in the left ischium. There is spinal stenosis at L4-L5. Impression is cholelithiasis, nephrolithiasis, diverticulosis, mild constipation, bibasilar atelectasis versus pneumonia. Her laboratory showed a white count of 17,000, hematocrit 40.9, platelet count 200. She had a left shift. Coags showed INR was 1.06, PT was 14.3. Blood gases showed pH of 7.33, pCO2 of 53, pO2 of 67, carboxyhemoglobin 2.4 on 32% O2. Lactate was 1.4. Chemistries showed sodium 140, potassium 4.5, chloride 96, CO2 of 26, BUN was 77, creatinine was 3.5, probably from Zestoretic diuretics and thiazide. Creatinine is 3.5, likewise. BUN to creatinine ratio is 22. Glucose 175. Calcium 8.5. Total bilirubin 2.1, AST is 94, ALT is 85, alkaline phosphatase 176. CK is 609. Troponin I sensitivity was 64, presumably elevated from her renal function. Her CK index was 0.9, which is normal. Her total protein was 6.5, albumin 3.3, globulin 3, lactate was 1.2, 1.6 and 1.4. She was admitted. PHYSICAL EXAMINATION: HEENT: Head was normocephalic. Eyes were PERRL, EOMs intact. Nares patent. Oropharynx with dry mucosa. NECK: Supple. No JVD. No thyromegaly. No significant lymphadenopathy. CHEST: Diminished breath sounds bilaterally. No significant wheezing. Some rhonchi. CARDIOVASCULAR: She had regular rhythm and rate. S1 and S2 were normal. EXTREMITIES: Extremities were swollen, 1+ edema. No cords. Nontender. ABDOMEN: Obese. No hepatosplenomegaly. She was tender on her left side, and presumably this could be from this constipation seen on her films or the alleged fall. She fell on her left side, she thinks. SKIN: Clear. ADMITTING DIAGNOSIS: Based primarily on her urine which showed there was yellow turbid, negative for nitrites, large amount of leukocytes too numerous to count, 4+ bacteria, 20 to 40 RBCs. So we thought that she probably had a urinary tract infection and some COPD issues from her blood gases. Questionable infiltrates, but she had only been sick for a day. ASSESSMENT AND PLAN: She was admitted to the hospital for evaluation and treatment. cc: Mehdi Michael MD
--- NOTE | 2019-02-20 15:46 | Diag Imaging Result Doc PS360 ---
EXAM: CT ABD/PELVIS W/IV CONT ONLY HISTORY: fever, pain TECHNIQUE: CT abdomen and pelvis with intravenous contrast, but without oral contrast COMPARISON: 02/15/2019 FINDINGS: Interval development of a moderate-sized left-sided pleural effusion measuring 3.8 cm posteriorly and inferiorly in the midline. There atelectasis and infiltrates in the left lower lobe. Tiny right effusion with basilar infiltrates and atelectasis. There are multiple hypodense lesions within the liver on the current study which are not appreciated on the prior noncontrasted exam. There are several stones within the gallbladder. The spleen is not enlarged. There are scattered hepatic and splenic granuloma. No inflammation about the pancreas. Normal adrenal glands. Nonobstructive right renal stone. No renal mass. No hydronephrosis. Dilatation of the distal aorta measuring 2.9 cm. Prominent atherosclerosis. No bowel obstruction. There are many scattered colonic diverticula. There is a Sin catheter in the urinary bladder. Normal uterus. IMPRESSION: 1.Development of pleural effusions with basilar atelectasis and infiltrates 2.Multiple nonspecific liver lesions which were either present on the prior exam but not seen due to the absence of intravenous contrast or these have developed since the prior exam. 3.Cholelithiasis 4.Right nephrolithiasis 5.Severe atherosclerosis with dilatation of the distal aorta 6.Colonic diverticulosis This exam was performed using automated exposure control, adjustment of mA or kV according to patient size, and/or use of iterative reconstruction technique. Electronically signed by Gildardo Chávez 02/20/2019 3:44 PM
[2019-02-20] MEDS: NS 1,000 ML IV SCH (16:11)
[2019-02-20] MEDS: ZOSYN 3.375 GM in NS 50 ML IV SCH (20:31)
[2019-02-21] MEDS: DUONEB (A & A) INH SCH ×3 (03:02→10:56)
[2019-02-21] MEDS: ZOSYN 3.375 GM in NS 50 ML IV SCH ×2 (03:22→10:03)
[2019-02-21] MEDS: LOVENOX SUBQ SCH ×2 (05:22→19:14)
[2019-02-21 10:09] LABS: BASO# 0.11 X1000 (0.0-0.2); BASO% 0.4 % (0.0-0.8); EOS# 0.06 X1000 (0.0-0.7); EOS% 0.2 % (0.0-10.0); HEMATOCRIT 33.3 % (37.0-47.0); HEMOGLOBIN 10.7 g/dL (12.0-16.0); IMM GRAN# 0.94 X1000 (0.0-0.04); IMM GRAN% 3.2 % (0.0-0.5); LYMPH# 2.95 X1000 (1.2-3.4); MCH 24.6 PG (27-31); MCHC 32.1 g/dL (33-37); MCV 76.6 FL (81-99); MONO# 3.08 X1000 (0.11-0.59); MONO% 10.4 % (1.7-9.3); NEUT# 22.44 X1000 (1.4-6.5); NEUT% 75.8 % (42.2-75.2); PLT 215 X1000 (130-400); RBC 4.35 XMIL (4.2-5.4); RDW 19.3 % (11.5-14.5); WBC 29.58 X1000 (4.8-10.8)
[2019-02-21 10:28] LABS: LYMPHS 9 % (21-51); MONO 8 % (1-9); SEGS 83 % (42-75)
[2019-02-21 10:36] LABS: ALBUMIN 1.9 g/dL (3.5-5.0); CALCIUM 8.4 mg/dL (8.8-10.2); CREATININE 0.9 mg/dL (0.5-0.9); POTASSIUM 4.1 mmol/L (3.5-5.1); TOTAL PROTEIN 5.6 g/dL (6.3-8.3)
[2019-02-21] MEDS: NS 1,000 ML IV SCH (10:51)
--- NOTE | 2019-02-21 11:48 | PROGRESS NOTE ---
DATE: 02/20/2019 VITAL SIGNS: Temperature was 98, pulse was 55, respiratory rate 20, BP 164/49, O2 saturation is 93 on nasal cannula. She continues to do poorly. Her white count today is 23,830, hematocrit is 34.6, platelet count is 170. Her culture data, she was found to have Escherichia coli in her urine and previously had Escherichia coli in her blood but that has been changed to Bacteroides fragilis. We talked to Dr. Lj Fernandes. He recommended changing her to Zosyn exclusively seeing that her renal function is normal. He did a scan subsequently and it showed of the abdomen and pelvis that she had some liver lesions that had not been seen on the previous noncontrasted abdominal film that may represent abscesses or metastatic disease. She continues to have a dense left lower lobe pneumonia. Her electrolytes seem to be doing fine. Mental status okay. Her belly is relatively soft. She has some edema in her legs but just continues to do poorly needing supplemental oxygen that has been turned up. Her last blood gas on 02/20 today: pH was 7.38, pCO2 38, pO2 64, on 44%. Carboxyhemoglobin is 3.1. We are going to do Zosyn but we may end up changing to imipenem per Dr. Fernandes but we will try the Zosyn a couple of doses and see how she does. cc: Mehdi Michael MD
[2019-02-21] MEDS ORDERED: LANOXIN IV ONE (12:37)
[2019-02-21] MEDS ORDERED: CARDIZEM ONE (12:47)
--- NOTE | 2019-02-21 13:10 | EKG Report ---
Test Performed on : 02/21/2019 12:38:11 PM Test Reason : HIGH HEART RATE Blood Pressure : / mmHG Vent. Rate : 152 BPM Atrial Rate : 150 BPM P-R Int : 000 ms QRS Dur : 100 ms QT Int : 258 ms P-R-T Axes : 000 065 255 degrees QTc Int : 410 ms Atrial fibrillation. with rapid ventricular response. Low voltage QRS Nonspecific ST and T wave abnormality Abnormal ECG When compared with ECG of 17-FEB-2019 14:06, (Unconfirmed) Atrial fibrillation. has replaced Sinus rhythm. Non-specific change in ST segment in Inferior leads Nonspecific T wave abnormality now evident in Inferior leads Nonspecific T wave abnormality, worse in Anterolateral leads Confirmed by Mehdi Michael MD ([id number]) on 02/27/2019 6:33:07 AM
--- NOTE | 2019-02-21 14:13 | Diag Imaging Result Doc PS360 ---
US GB < RUQ (LIMITED) - 02/21/2019 INDICATION: LOOKING FOR LESIONS GALLBLADDER, LIVER TECHNIQUE: COMPARISON: CT from 02/20/2019 FINDINGS: There are multiple masses in the liver. These measure up to 3.7 cm. There is a small amount of layering sludge dependently in the gallbladder. No shadowing stones in the gallbladder. No gallbladder wall thickening. Common bile duct measures 7 mm. There is a small peripelvic right renal cyst superiorly measuring 1.3 cm. Otherwise both kidneys are normal. No hydronephrosis. The pancreas is obscured. The spleen is normal. Aorta, IVC, and main portal vein are patent. IMPRESSION: 1. Masses in the liver stable from prior. 2. Layering sludge in the gallbladder. Electronically signed by Cristiano Lynn 02/21/2019 2:10 PM
[2019-02-21] MEDS ORDERED: CARDIZEM 100 MG/NS 100 MG/100 ML IVPB IV SCH (15:03)
[2019-02-21] MEDS ORDERED: ZOSYN 4.5 GM in NS 50 ML IV SCH (16:00)
[2019-02-21] MEDS ORDERED: ZOSYN 3.375 GM in NS 50 ML IV SCH (16:00)
[2019-02-21] MEDS: PROTONIX IV SCH (16:51)
[2019-02-21] MEDS: SODIUM CHLORIDE 0.9% INJ SCH (16:51)
[2019-02-21] MEDS: ZOSYN 4.5 GM in NS 100 ML IV SCH ×2 (18:00→23:43)
[2019-02-21] MEDS ORDERED: ZOFRAN IV PRN (18:29)
[2019-02-21] MEDS ORDERED: ALBUMIN 25% IV ONE (18:30)
[2019-02-21] MEDS ORDERED: TYLENOL PO PRN (18:32)
[2019-02-21] MEDS: 1/2 NS 1,000 ML IV SCH (19:16)
[2019-02-21] MEDS ORDERED: NS 500 ML IV ONE (21:45)
--- NOTE | 2019-02-21 21:46 | OPERATIVE NOTE ---
PROCEDURE DATE: 02/21/2019 PREOPERATIVE DIAGNOSES: 1. Phlebosclerosis. 2. Bacteremia. POSTOPERATIVE DIAGNOSES: 1. Phlebosclerosis. 2. Bacteremia. PROCEDURE: Ultrasound-guided right common femoral vein central line placement. SURGEON: Aki Desouza MD TUBE OPERATOR: None. ANESTHESIA: Local, administered by the surgeon. INTRAOPERATIVE FINDINGS: Ultrasound showed good-caliber right common femoral vein. BRIEF HISTORY: An 83-year-old female presenting with some abdominal pain. She had a CT scan that showed multiple spots on her liver and she is bacteremic. It is felt that she would benefit from a central line. She had poor vein selection. Consent was obtained. DESCRIPTION OF PROCEDURE: After informed consent was obtained, the patient remained in her ICU bed. The right groin was prepped and draped in sterile fashion. We elected to use the right groin, because she already had an IV in her right neck. We prepped her at the right groin in sterile fashion. We used local anesthetic to anesthetize the skin. Under ultrasound guidance I was able to cannulate the right common femoral vein and pass a wire easily into the vein. I was able to use a Seldinger technique to dilate up the tract to place a central line in. All ports aspirated and flushed easily. We secured it in place in standard fashion. The patient tolerated the procedure well, and remained in the ICU. cc: MD Mehdi Flores MD
--- NOTE | 2019-02-21 21:48 | INFECTIOUS DISEASE CONSULT REP ---
DATE: 02/21/2019 CONCLUSION: The patient has an E. coli urinary tract infection. She also has a Bacteroides fragilis bacteremia. The origin of the bacteremia is uncertain to me at this time. RECOMMENDATIONS: I asked Dr. Michael yesterday to put the patient on Zosyn, and I today have increased the dose to 4.5 g IV every 6 hours. After 48 hours of the new dose then I will repeat the patient's blood cultures. DISCUSSION: The patient was unable at this time to give me a history and physical. According to the information in the chart the patient was found to be sitting on the floor and she could not get herself up. She was brought to the hospital. She had a history of nausea, vomiting, weakness and general fatigue. She also said she was having decreased appetite and she was dyspneic. She also had a smell to her urine. The patient's lab studies thus far show a CBC with a white count of 29,580, hemoglobin 10.7, platelet count 215,000, creatinine is 0.9, GFR is 60. Urine culture grew E. Coli. Blood culture grew Bacteroides fragilis. CT scan of the abdomen and pelvis showed bibasilar atelectasis/infiltrate, liver lesions, gallstones and colonic diverticula. Chest x-ray showed left basilar atelectasis. ALLERGIES: The patient has no known allergies. HOME MEDICATIONS: Aspirin, allopurinol, furosemide, DuoNeb, lisinopril/hydrochlorothiazide, and metformin. MEDICAL DISEASES: Positive for COPD, sleep apnea, gastroesophageal reflux disease, diabetes mellitus. The patient is a cigarette smoker. PAST SURGICAL HISTORY: Positive for joint surgeries. REVIEW OF SYSTEMS: Unable to be obtained. PHYSICAL EXAMINATION: Vital Signs: Temperature is 98.3 degrees, pulse is 156, respiratory rate is 24, blood pressure is 97/74. The patient weighs 236 pounds. General: This is an obese elderly female. She seems somewhat dyspneic at rest, and any time she moves she seems to scream in pain. Head/eyes/ears/nose/throat: No drainage noted from the nose or ears. I did not notice any white patches on her tongue. Neck: She did not seem to have pain when she moved her neck. Lungs: There were diminished breath sounds. I did not hear any rales or wheezes. Cardiovascular: Heart rate was regular. Abdomen: Was soft and did not seem to be tender. Pelvis: In the pelvic area I did not see any erythematous areas, any necrotic areas, or any areas that were inflamed. I looked anteriorly, I spread her legs apart, and then we put her on her side and we looked at the back and both buttocks and the perineum and did not find any evidence of a cellulitis or necrosis. Neurologic: The patient is awake, she can move her extremities. There is no tremor. Integument: I did not notice any rash. Thank you for the consultation. cc: MD Mehdi Sherwood MD MTDD
[2019-02-21] MEDS: XOPENEX NEB INH SCH (22:55)
[2019-02-22] MEDS: ZOSYN 4.5 GM in NS 100 ML IV SCH ×4 (04:18→22:09)
--- NOTE | 2019-02-22 05:19 | EKG Report ---
Test Performed on : 02/21/2019 10:46:51 PM Test Reason : AFIB Blood Pressure : / mmHG Vent. Rate : 076 BPM Atrial Rate : 076 BPM P-R Int : 156 ms QRS Dur : 084 ms QT Int : 364 ms P-R-T Axes : 053 030 075 degrees QTc Int : 409 ms Normal sinus rhythm. Low voltage QRS Nonspecific ST and T wave abnormality Abnormal ECG When compared with ECG of 21-FEB-2019 12:38, (Unconfirmed) Sinus rhythm. has replaced Atrial fibrillation. Vent. rate has decreased BY [address] elevation now present in Inferior leads ST no longer depressed in Lateral leads Confirmed by Víctor JUNIOR, Daquan Mahajan ([id number]) on 02/22/2019 12:23:57 PM
--- NOTE | 2019-02-22 05:27 | CONSULTATION ---
DATE OF CONSULTATION: 02/21/2019 IMPRESSION: 1. Transient atrial fibrillation with rapid ventricular rate in the setting of sepsis with Bacteroides fragilis. The patient has converted back to sinus rhythm. 2. Recent weakness as well as some nausea and vomiting prior to admission. She has had some abdominal discomfort. Clinical presentation of core suggests sepsis with probable source below the diaphragm, and positive blood cultures for Bacteroides fragilis. 3. Chronic obstructive pulmonary disease. 4. Gastroesophageal reflux. 5. Type 2 diabetes mellitus. RECOMMENDATIONS: 1. Continue to monitor rhythm for recurrence of atrial fibrillation. 2. Treat his acute sepsis as you are doing. 3. Echocardiography. HISTORY: This 83-year-old white female with past history of COPD, sleep apnea, gastroesophageal reflux disease, and type 2 diabetes mellitus was transferred from [facility] for further management of apparent sepsis and atrial fibrillation for rapid ventricular rate. She was initially admitted there on 02/15/2019 after she presented with weakness, and being found on the floor. She had had some nausea and vomiting, and poor appetite. There was also some abdominal discomfort. She was thought to have urinary tract infection and was hospitalized. She was in sinus rhythm on admission. Urinalysis suggested urinary tract infection and urine cultures grew E. Coli. Blood cultures were abnormal. However, blood cultures ultimately returned showing Bacteroides fragilis and antibiotic coverage had to be adjusted. She initially seemed to improve with decrease in white blood cell count. However, over the recent several days she has progressively gotten worse with significant rise in white blood cell count. She developed atrial fibrillation with rapid ventricular rate and was started on intravenous Cardizem. She was transferred to intensive care unit here in [facility]. In the interim, she has converted back to sinus rhythm. When I see her, she denies any chest discomfort or shortness of breath. She is not aware of any previous cardiac problems. However, she has continued to require supplemental oxygen per mask. PAST MEDICAL HISTORY: 1. Chronic obstructive pulmonary disease. 2. Diabetes mellitus type 2. 3. Sleep apnea. 4. Gastroesophageal reflux disease. PAST SURGICAL HISTORY: Several joint surgeries. ALLERGIES: She has no known drug allergies. MEDICATIONS PRIOR TO ADMISSION: As listed. SOCIAL HISTORY: She has history of cigarette smoking. FAMILY HISTORY: Noncontributory. REVIEW OF SYSTEMS: Pulmonary: Noncontributory. Gastrointestinal: Noncontributory beyond history of present illness. Constitutional: Noncontributory beyond history of present illness. Remainder of Review of Systems negative/noncontributory beyond history of present illness with 14 total systems reviewed. PHYSICAL EXAMINATION: General: Reveals an obese, elderly, white female in no distress on supplemental oxygen per mask. Blood pressure 133/66, heart rate 87 with ECG monitor showing sinus rhythm, respiratory rate 25, and oxygen saturation 93% on Venturi mask 50%. HEENT: Extraocular muscles appear intact. Mucous membranes are somewhat dry. Neck: Supple without jugular venous distention. No carotid bruits. Chest: Auscultation of the chest reveals clear chest bilaterally. Cardiac: Regular rate and rhythm without appreciable murmur or gallop. Abdomen: Soft. There is mild tenderness to palpation in the right upper quadrant. There is no rebound tenderness. Bowel sounds are normal. Extremities: Mild edema. LABORATORY DATA: White blood cell count of 29.58, hematocrit 33.3, hemoglobin 10.7 and platelet count 215,000. Sodium 140, potassium 4.1, chloride 105, carbon dioxide 23, BUN 37, and creatinine 0.9. Glucose 190. Bilirubin 1.0. AST 22. ALT 14. Alkaline phosphatase 135. Albumin 1.9. Lactate 1.3. EKG on admission 02/15/2019 demonstrates sinus tachycardia with occasional premature atrial complex. A 12 lead EKG today at 12:26 demonstrates atrial fibrillation with rapid ventricular rate, low voltage QRS and nonspecific ST and T-wave abnormality. Current ECG monitor shows sinus rhythm. cc: MD Mehdi Farr MD
[2019-02-22] MEDS: PROTONIX IV SCH (05:59)
[2019-02-22 07:51] LABS: ALLEN TEST YES; BE -4.1 mmoll (-3.0-3.0); BLOOD TYPE ARTERIAL; HCO3-(ACT) 21.7 mmoll (20.0-26.0); METHB 0.6 % (0.0-1.5); O2(CT) 14.9 mL/dL (15.0-23.0); PO2(98.6) 99 mmHg (60-100); SAMPLE BLOOD; SAO2 99.6 % (95.0-100.0); THB 10.8 g/dL (11.5-17.4)
[2019-02-22 07:54] LABS: MODALITY VENTIMASK; PCO2(98.6) 63 mmHg (35-45)
--- NOTE | 2019-02-22 08:02 | Diag Imaging Result Doc PS360 ---
CHEST-PORTABLE - 02/22/2019 INDICATION: SOB COMPARISON: 02/20/2019 FINDINGS: Stable cardiomegaly and pulmonary vascular congestion. Stable partial opacification of the left lung base. Stable trace right pleural effusion. IMPRESSION: No change from prior. Electronically signed by Cristiano Lynn 02/22/2019 7:59 AM
[2019-02-22 08:08] LABS: BASO% 0.4 % (0.0-0.8); EOS% 0.4 % (0.0-10.0); HEMATOCRIT 32.9 % (37.0-47.0); HEMOGLOBIN 10.4 g/dL (12.0-16.0); IMM GRAN# 0.75 X1000 (0.0-0.04); IMM GRAN% 2.7 % (0.0-0.5); LYMPH# 3.57 X1000 (1.2-3.4); LYMPH% 12.9 % (20.5-51.1); MCH 24.9 PG (27-31); MCHC 31.6 g/dL (33-37); MCV 78.9 FL (81-99); MONO# 2.93 X1000 (0.11-0.59); MONO% 10.6 % (1.7-9.3); MPV 12.6 FL (7.4-10.4); NEUT# 20.26 X1000 (1.4-6.5); PLT 233 X1000 (130-400); RBC 4.17 XMIL (4.2-5.4); RDW 19.6 % (11.5-14.5); WBC 27.71 X1000 (4.8-10.8)
[2019-02-22 08:22] LABS: ALB/GLOB RATIO 0.6; ALBUMIN 2.2 g/dL (3.5-5.0); CALCIUM 8.6 mg/dL (8.8-10.2); CREATININE 1.3 mg/dL (0.5-0.9); MAGNESIUM 1.5 mg/dL (1.5-2.7); PHOSPHORUS 4.1 mg/dL (2.7-4.5); POTASSIUM 4.1 mmol/L (3.5-5.1); TOTAL BILIRUBIN 1.05 mg/dL (0.20-1.00); TOTAL PROTEIN 5.7 g/dL (6.3-8.3)
[2019-02-22] MEDS: 1/2 NS 1,000 ML IV SCH (09:05)
[2019-02-22] MEDS: ASPIRIN PO SCH (09:32)
[2019-02-22] MEDS: XOPENEX NEB INH SCH ×3 (11:46→22:00)
--- NOTE | 2019-02-22 12:36 | ECHO REPORT ---
ORDER DATE: 02/21/2019 INDICATIONS: Sepsis, transient atrial fibrillation. FINDINGS: 1. The right atrium appears normal in size at 3.7 cm. 2. Mild tricuspid regurgitation. RV systolic pressure 27. 3. Likely normal RV size and systolic function on difficult views of the right ventricle. 4. No significant pulmonic insufficiency. 5. Normal left atrial size with a dimension of 3.8 cm. 6. No mitral prolapse. Trace mitral regurgitation. No mitral stenosis. 7. Normal LV size, end-diastolic dimension of 5.4 cm. Normal wall thicknesses with a posterior and interventricular septal wall thickness of 1 cm each. Normal LV systolic function. Calculated ejection fraction of 68%, with no obvious wall motion abnormalities. 8. Aortic valve opens well. It is somewhat sclerotic but does not appear to be stenotic. No insufficiency. 9. Aorta is mildly dilated at the root with a dimension of 3.9 cm. 10. No pericardial effusion seen. cc: MD Shahriar Buckner MD Michael Putman, MD
--- NOTE | 2019-02-22 14:05 | INFECTIOUS DISEASE PROGRESS NO ---
DATE: 02/22/2019 PRESENT ILLNESS: The patient has an Escherichia coli urinary tract infection and a Bacteroides fragilis bacteremia. MEDICATIONS: The patient is receiving Zosyn IV. Yesterday I increased the dose to 4.5 grams IV every 6 hours. PHYSICAL EXAMINATION: Vital Signs: Temperature is 96.3 degrees, pulse 67, respirations 19, blood pressure 133/55. General: This is an obese, elderly female. She is in no acute distress. Today she told me she is feeling a little bit better, and she has not had anymore fever. Head/Eyes/Ears/Nose/Throat: She can hear my spoken words and see near objects. She does not have any white coating on her tongue. Neck: No pain with movement. No stiffness either. Lungs: Clear to auscultation. Cardiovascular: Heart rate at times was irregular, even though there was a P wave before each QRS complex. Possibly, the patient may have a sinus arrhythmia. Abdomen: Soft and nontender. Neurologic: Patient is awake. She can move her extremities. There is no tremor. LAB AND X-RAY: Chest x-ray shows cardiomegaly and pulmonary vascular congestion. The CBC shows a white count of 27,710, hemoglobin 10.4, platelet count 233,000. Blood gases show a pH of 7.28, a PO2 of 99, pCO2 of 63. Creatinine is 1.3, GFR is 39. Chest x-ray shows cardiomegaly and pulmonary vascular congestion. ASSESSMENT AND PLAN: The patient, as mentioned above, has a Bacteroides bacteremia, the origin of which I am uncertain, and an Escherichia coli urinary tract infection. The patient had been on Zosyn at [facility], but she is on it now at a higher dose, and her white count is coming down, and she has not been having any fever, so my plan is to continue Zosyn. Late tomorrow I will go ahead and repeat the patient's blood cultures. I am going to keep the patient on Zosyn at the newer dose which is 4.5 grams intravenously every 6 hours. If the patient's creatinine continues to increase, I may have to cut back on Zosyn. COMORBIDITIES: The patient is elderly. She is morbidly obese. She has sleep apnea, gastroesophageal reflux disease, and diabetes mellitus. The patient also smokes cigarettes. The patient also has COPD. cc: MD Mehdi Sherwood MD
[2019-02-22] MEDS ORDERED: ALBUMIN 25% IV ONE (14:18)
[2019-02-22 15:26] LABS: ALLEN TEST YES; BE -5.8 mmoll (-3.0-3.0); BLOOD TYPE ARTERIAL; HCO3-(ACT) 20.4 mmoll (20.0-26.0); METHB 0.8 % (0.0-1.5); O2(CT) 17.8 mL/dL (15.0-23.0); O2HB 95.9 % (95.0-99.0); PO2(98.6) 96 mmHg (60-100); SAMPLE BLOOD; THB 13.1 g/dL (11.5-17.4)
[2019-02-22 15:30] LABS: MODALITY VENTIMASK; PCO2(98.6) 61 mmHg (35-45); pH(98.6) 7.19 (7.35-7.45)
--- NOTE | 2019-02-22 16:48 | PROGRESS NOTE ---
DATE: 02/22/2019 SUBJECTIVE: Today, Ms. Petersen continues to be fairly the same. There was a brother, sister and a son at the bedside. Ms. Petersen herself is not able to give any interim history. According to the family, they think that she is less responsive. OBJECTIVE: Vital signs: Blood pressure is 137/54, pulse of 71, respirations 23, temperature 97.3 degrees. General: Ms. Petersen is an 83-year-old elderly female. She is in bed. She is currently on the BiPAP. HEENT: Mucosa is pink and moist. Anicteric. Acyanotic. Neck: Supple. There is mild JVD. Chest: Air entry is bilaterally reduced, more so to the left posterior lung. There are crepitations in both lungs Cardiovascular: Regular rate and rhythm. Abdomen: Soft, distended, bowel sounds present. Extremities: About 1+ pedal edema bilateral. Central Nervous System: The patient is lethargic, will barely open the eyes to her name, but then goes straight back to sleep. She will move extremities to painful stimulation. LABORATORY DATA: WBC is 21.71, hemoglobin is 10.4, platelet count of 233,000. ABG shows pCO2 of 63. Chemistry is also reviewed. ASSESSMENT: 1. Sepsis on presentation, complicated with altered mental status, acute kidney injury, and Bacteroides fragilis bacteremia. The patient is being seen also by Infectious Disease. She is on Zosyn. 2. Escherichia coli urinary tract infection. 3. Cholelithiasis with mildly dilated gallbladder noted on imaging studies. 4. Transient atrial fibrillation with rapid ventricular response presumably sepsis induced. 5. History of Chronic obstructive pulmonary disease. 6. Diabetes mellitus. We will start the patient on sliding scale insulin. 7. Hypercarbic respiratory failure. The patient's pCO2 this morning was 63. We are going to repeat it. If it continues to be going up, we will put the patient on the BiPAP. cc: MD Mehdi Liu MD
[2019-02-22] MEDS: HUMALOG SUBQ SCH ×2 (17:00→20:30)
[2019-02-22 18:37] LABS: UR CREAT RANDOM 51.5 mg/dL (11-20)
[2019-02-22] MEDS: LOVENOX SUBQ SCH (18:42)
--- NOTE | 2019-02-22 19:22 | PROGRESS NOTE ---
DATE: 02/22/2019 SUBJECTIVE: The patient continues somewhat lethargic. But appears to be oxygenating adequately on supplemental oxygen per mask. OBJECTIVE: Vital Signs: Blood pressure 137/54, heart rate 72 and regular with ECG monitor showing sinus rhythm, oxygen saturation 98%. Neck: There is no significant jugular venous distention. Chest: Clear to auscultation. Cardiac: Reveals a regular rate and rhythm without appreciable murmur or gallop. Abdomen: Soft. Bowel sounds audible. Extremities: Without edema. LABORATORY DATA: Includes a white blood cell count of 27.71, hematocrit 32.9, hemoglobin 10.4, platelet count 233,000. Sodium 138, potassium 4.1, chloride 104, carbon dioxide 24, BUN 46, creatinine 1.3, glucose 165. IMPRESSION: 1. Transient atrial fibrillation with rapid ventricular rate in the setting of significant noncardiac illness with Escherichia coli urinary tract infection and bacteremia with Bacteroides fragilis. Patient continues in sinus rhythm. 2. Acute infectious illness with Escherichia coli urinary tract infection and Bacteroides fragilis bacteremia of unclear etiology. 3. Chronic obstructive pulmonary disease. 4. Gastroesophageal reflux. 5. Type 2 diabetes mellitus. RECOMMENDATIONS: 1. Continue to monitor recurrence of atrial fibrillation. 2. Treat bacteremia/possible sepsis as you are doing. 3. Follow up echocardiography. This was reviewed and demonstrates normal left ventricular ejection fraction. 4. Given no further recurrence of atrial fibrillation, I will see further on an as needed basis. cc: MD Mehdi Farr MD
[2019-02-23] MEDS: PROTONIX IV SCH (06:01)
[2019-02-23] MEDS: SODIUM CHLORIDE 0.9% INJ SCH (06:01)
[2019-02-23] MEDS: ZOSYN 4.5 GM in NS 100 ML IV SCH ×4 (06:01→23:08)
[2019-02-23] MEDS: HUMALOG SUBQ SCH ×4 (06:14→20:59)
[2019-02-23 06:43] LABS: ALLEN TEST YES; BE -2.3 mmoll (-3.0-3.0); BLOOD TYPE ARTERIAL; HCO3-(ACT) 23.1 mmoll (20.0-26.0); METHB 1.8 % (0.0-1.5); O2(CT) 13.9 mL/dL (15.0-23.0); O2HB 92.9 % (95.0-99.0); PCO2(98.6) 42 mmHg (35-45); PO2(98.6) 74 mmHg (60-100); SAMPLE BLOOD; SAO2 97.1 % (95.0-100.0); THB 10.6 g/dL (11.5-17.4); pH(98.6) 7.35 (7.35-7.45)
[2019-02-23 06:44] LABS: MODALITY BI PAP
--- NOTE | 2019-02-23 07:21 | Diag Imaging Result Doc PS360 ---
EXAM: CHEST-PORTABLE HISTORY: dyspnea TECHNIQUE: Single view COMPARISON: 02/22/2019 FINDINGS: Heart remains enlarged. Interval decrease in pulmonary edema. Atelectasis and infiltrates in the lower left lung are slightly less prominent. Pleural effusions are similar to the prior exam. IMPRESSION: Mild interval improvement Electronically signed by Gildardo Chávez 02/23/2019 7:18 AM
[2019-02-23 08:56] LABS: BASO# 0.07 X1000 (0.0-0.2); BASO% 0.3 % (0.0-0.8); EOS# 0.07 X1000 (0.0-0.7); EOS% 0.3 % (0.0-10.0); HEMATOCRIT 28.2 % (37.0-47.0); IMM GRAN# 0.31 X1000 (0.0-0.04); IMM GRAN% 1.4 % (0.0-0.5); LYMPH# 2.24 X1000 (1.2-3.4); LYMPH% 9.8 % (20.5-51.1); MCH 24.8 PG (27-31); MCHC 31.9 g/dL (33-37); MCV 77.7 FL (81-99); MONO# 1.93 X1000 (0.11-0.59); MONO% 8.4 % (1.7-9.3); NEUT# 18.28 X1000 (1.4-6.5); NEUT% 79.8 % (42.2-75.2); PLT 218 X1000 (130-400); RBC 3.63 XMIL (4.2-5.4); RDW 19.3 % (11.5-14.5)
[2019-02-23 09:07] LABS: CALCIUM 7.9 mg/dL (8.8-10.2); CREATININE 1.1 mg/dL (0.5-0.9); POTASSIUM 3.8 mmol/L (3.5-5.1)
[2019-02-23] MEDS: ASPIRIN PO SCH (09:26)
[2019-02-23] MEDS: XOPENEX NEB INH SCH ×3 (09:41→21:20)
[2019-02-23 09:45] LABS: LYMPHS 4 % (21-51)
[2019-02-23 09:47] LABS: ANISOCYTOSIS 2+; BANDS 5 % (0-1); EOS 1 % (1-10); HYPOCHROM 1+; MICROCYTOSIS 1+; MONO 9 % (1-9); SEGS 78 % (42-75); TARGET CELLS 1+
[2019-02-23 09:48] LABS: LARGE PLATELETS 1+
[2019-02-23] MEDS: TYLENOL PO PRN (15:45)
--- NOTE | 2019-02-23 16:05 | INFECTIOUS DISEASE PROGRESS NO ---
DATE: 02/23/2019 PRESENT ILLNESS: The patient has an Escherichia coli urinary tract infection, a Bacteroides fragilis bacteremia, and pneumonia. MEDICATIONS: The patient is on IV Zosyn. I increased the dose to 4.5 g IV every 6 hours. PHYSICAL EXAMINATION: Vital Signs: Temperature is 97 degrees, pulse 89, respirations 30, blood pressure 141/64. General: This is an obese, elderly female. The patient is dyspneic. She has a BiPAP mask on. Head/eyes/ears/nose/throat: As mentioned above the patient has a BiPAP mask. I did not see any white patches in her mouth. There was no drainage from the nose or ears. Neck: The patient has a right-sided jugular vein catheter in place. The site is not erythematous or purulent. Cardiovascular: Heart rate is irregular. Lungs: Clear to auscultation. Abdomen: Soft and not tender. Neurologic: The patient is awake. She can move her extremities. She tries to talk but it is difficult to understand her because she is wearing a BiPAP mask. LAB AND X-RAY: Chest x-ray shows improvement in the patient's left lower lobe infiltrate and pulmonary venous congestion. Echocardiogram shows no vegetation. Repeat blood cultures are pending. The patient's CBC shows the white blood cell count is down to 27,710, hemoglobin 10.4, and platelet count 233,000. Blood gases show a pH of 7.35, a PO2 of 74, and a pCO2 of 42. The creatinine is 1.3. GFR is 39. ASSESSMENT AND PLAN: The patient has Bacteroides bacteremia and an Escherichia coli urinary tract infection and pneumonia. My plan is to continue with Zosyn at this increased dose. I have ordered repeat blood cultures. Also, I have ordered for daily CBC with differential, BMP, and for 3 days for now I have ordered another portable chest x-ray. COMORBIDITIES: The patient is elderly and morbidly obese. She has sleep apnea, gastroesophageal reflux disease, diabetes mellitus and COPD. The patient also smokes cigarettes. cc: MD Mehdi Sherwood MD
--- NOTE | 2019-02-23 17:00 | PROGRESS NOTE ---
DATE: 02/23/2019 SUBJECTIVE: This morning Ms. Petersen looked more alert and more conversational. There was no family member at her bedside at the time of the encounter. Per the nursing staff, she has been taking sips of water and she was requesting if she can be fed. OBJECTIVE: Vitals: Blood pressure is 137/50, pulse of 88, respiration is 26, temperature 97.9 degrees, patient was saturating 96% on Venturi mask. General: Ms. Petersen 83-year-old female she is in bed no distress. Mucosa is pink and moist. Anicteric. Acyanotic. Neck: Supple. No JVD. Chest: Air entry is bilaterally reduced, some few crackles in the posterior lung gusman. Cardiovascular: Regular rate and rhythm. There is no murmurs, no rubs, no gallops. Abdomen: Soft, is distended. No hepatosplenomegaly. Extremities: About 1+ pedal edema in both upper and lower extremities. PREP COOK: Patient is more alert today, more engaging in conversation and follows basic commands. Patient has a right femoral central venous catheter in place. Sin catheter is also in place. There is a right EJ catheter as well. Chest x-ray this morning shows mild interval improvement. Patient I's and O's, urine output was 950 this morning. She is currently negative balance of 1498. LABORATORY DATA: Shows WBC is down to 22.90, hemoglobin is 9.0, platelet count of 218,000. Chemistry is also reviewed. Creatinine is down to 1.1. A repeat blood culture from today still pending. CURRENT MEDICATIONS: Has been reviewed no changes. ASSESSMENT: 1. Sepsis on presentation complicated with altered mental status, acute kidney injury and Bacteroides fragilis bacteremia, patient seems to be gradually getting better. Is a nonoliguric acute kidney injury. 2. Escherichia coli urinary tract infection. Patient is on Zosyn. 3. Bacteroides fragilis bacteremia. Repeat blood culture still pending. Infectious disease is on board. 4. Cholelithiasis with mildly dilated gallbladder noted on imaging studies. 5. Transient atrial fibrillation with rapid ventricular response presumably sepsis induced, patient is currently in sinus rhythm. 6. The patient is in sinus rhythm. Has been evaluated by Cardiology. 7. History of chronic obstructive pulmonary disease noted. 8. Diabetes mellitus, patient is on insulin regimen. 9. Acute hypercarbic respiratory failure improved with BiPAP therapy. So in general Ms. Petersen looks slightly better. Her laboratory data as well as imaging this morning also looking better. Clinically she is looking more alert and more conversational. We are going to continue with the current antimicrobial therapy as well as other medication for her comorbidities. Will continue to monitor Ms. Petersen in the ICU, use the BiPAP especially at night. I suspect she does have obstructive sleep apnea as well. cc: MD Mehdi Liu MD MTDD
[2019-02-23] MEDS: LOVENOX SUBQ SCH (17:49)
[2019-02-24] MEDS: ZOSYN 4.5 GM in NS 100 ML IV SCH ×4 (04:27→23:53)
[2019-02-24 06:08] LABS: BASO# 0.06 X1000 (0.0-0.2); BASO% 0.3 % (0.0-0.8); EOS% 1.7 % (0.0-10.0); HEMATOCRIT 30.8 % (37.0-47.0); HEMOGLOBIN 9.8 g/dL (12.0-16.0); IMM GRAN# 0.17 X1000 (0.0-0.04); IMM GRAN% 0.9 % (0.0-0.5); LYMPH# 2.17 X1000 (1.2-3.4); MCHC 31.8 g/dL (33-37); MCV 78.6 FL (81-99); MONO# 2.05 X1000 (0.11-0.59); MONO% 11.4 % (1.7-9.3); NEUT# 13.27 X1000 (1.4-6.5); NEUT% 73.7 % (42.2-75.2); PLT 226 X1000 (130-400); RBC 3.92 XMIL (4.2-5.4); RDW 19.1 % (11.5-14.5); WBC 18.02 X1000 (4.8-10.8)
[2019-02-24] MEDS: HUMALOG SUBQ SCH ×4 (06:20→21:02)
[2019-02-24] MEDS: PROTONIX IV SCH (06:27)
[2019-02-24 07:08] LABS: CALCIUM 8.7 mg/dL (8.8-10.2); CREATININE 1.4 mg/dL (0.5-0.9)
[2019-02-24 07:52] LABS: BANDS 4 % (0-1); LYMPHS 4 % (21-51); MONO 12 % (1-9); SEGS 80 % (42-75)
[2019-02-24 07:53] LABS: HYPOCHROM 2+
[2019-02-24 08:10] LABS: POTASSIUM 4.5 mmol/L (3.5-5.1)
[2019-02-24] MEDS: ASPIRIN PO SCH (08:21)
[2019-02-24] MEDS: XOPENEX NEB INH SCH ×3 (09:02→22:00)
[2019-02-24] MEDS: COREG PO SCH ×2 (10:00→21:21)
[2019-02-24] MEDS: NORVASC PO SCH ×2 (10:00→21:21)
--- NOTE | 2019-02-24 13:42 | PROGRESS NOTE ---
DATE: 02/24/2019 SUBJECTIVE: This morning Ms. Petersen refers to be doing well. She was sitting up. She was eating Jell-O. OBJECTIVE: Vital signs: Blood pressure is 163/52, pulse of 28, respirations 76, temperature 97.7 degrees. The patient is saturating 96%. General: Ms. Petersen is an 83-year-old elderly female. She is in bed, no distress. Mucosa is pink and moist. Anicteric. Acyanotic. Neck: Supple. Chest: Good air entry bilateral. A few crackles posteriorly. Cardiovascular: Regular rate and rhythm with occasional extrasystolic beats. No murmurs, no rubs, no gallops. GI: Abdomen is soft, is distended but nontender. Bowel sounds present. There is a right femoral central line in place. Extremities: No pedal edema. VP LAB: Patient is awake, alert, and follows commands. LABORATORY DATA: WBC is down to 18.02, hemoglobin is 9.8, platelet count of 223,000. Chemistry is also reviewed. Creatinine is 1.4. Rest of chemistry is unremarkable. The patient's repeat blood cultures are still pending. IMAGING STUDIES: None for this morning. Echocardiogram which was done on the shows an ejection fraction of 68%. No obvious wall motion abnormality. ASSESSMENT: 1. Sepsis on presentation complicated with altered mental status. 2. Acute kidney injury, Bacteroides fragilis bacteremia. 3. Escherichia coli urinary tract infection. 4. Bacteroides fragilis bacteremia. Subsequent blood cultures are still pending. 5. Cholelithiasis with mildly dilated gallbladder on imaging studies noted. 6. Transient atrial fibrillation with rapid ventricular rate presumably sepsis induced. Patient is currently in sinus with occasional premature atrial contractions. 7. History of chronic obstructive pulmonary disease. Noted. 8. Diabetes mellitus on insulin regimen. 9. Acute hypercarbic respiratory failure. Improved. 10. Nonoliguric acute kidney injury. We are going to continue to monitor this and avoid any nephrotoxin. 11. Uncontrolled hypertension. The patient has been started on Coreg and amlodipine and we will titrate this accordingly. PLAN: In general, I think Ms. Petersen is doing a lot better. She is more awake, alert, and conversational. A repeat blood culture still pending. We will continue to have her on Zosyn. We have added Coreg and amlodipine for better blood pressure control and we started the patient on his mechanical soft diet today. cc: MD Mehdi Liu MD
[2019-02-24] MEDS: LOVENOX SUBQ SCH (16:56)
[2019-02-25] MEDS: ZOSYN 4.5 GM in NS 100 ML IV SCH ×4 (04:56→22:50)
[2019-02-25] MEDS: SODIUM CHLORIDE 0.9% INJ SCH (06:15)
[2019-02-25] MEDS: PROTONIX IV SCH (06:15)
[2019-02-25] MEDS: HUMALOG SUBQ SCH ×4 (06:19→21:40)
[2019-02-25 07:30] LABS: BASO# 0.04 X1000 (0.0-0.2); BASO% 0.2 % (0.0-0.8); HEMATOCRIT 28.4 % (37.0-47.0); HEMOGLOBIN 8.9 g/dL (12.0-16.0); LYMPH# 2.05 X1000 (1.2-3.4); LYMPH% 11.4 % (20.5-51.1); MCH 24.9 PG (27-31); MCHC 31.3 g/dL (33-37); MCV 79.6 FL (81-99); MONO# 1.83 X1000 (0.11-0.59); MONO% 10.1 % (1.7-9.3); MPV 12.9 FL (7.4-10.4); PLT 255 X1000 (130-400); RBC 3.57 XMIL (4.2-5.4); RDW 19.2 % (11.5-14.5); WBC 18.06 X1000 (4.8-10.8)
[2019-02-25 08:21] LABS: CALCIUM 7.9 mg/dL (8.8-10.2); CREATININE 1.3 mg/dL (0.5-0.9); POTASSIUM 3.6 mmol/L (3.5-5.1)
[2019-02-25] MEDS: NORVASC PO SCH ×2 (08:59→20:26)
[2019-02-25] MEDS: COREG PO SCH ×2 (09:00→20:26)
[2019-02-25] MEDS: XOPENEX NEB INH SCH ×3 (09:00→22:18)
[2019-02-25] MEDS: ASPIRIN PO SCH (09:00)
[2019-02-25 09:34] LABS: BANDS 6 % (0-1); HYPOCHROM 2+; LYMPHS 4 % (21-51); MONO 4 % (1-9); SEGS 86 % (42-75)
[2019-02-25] MEDS: CUBICIN IV SCH (14:30)
[2019-02-25] MEDS: NS IV SCH (14:30)
--- NOTE | 2019-02-25 14:37 | INFECTIOUS DISEASE PROGRESS NO ---
DATE: 02/25/2019 PRESENT ILLNESS: The patient has an E coli urinary tract infection, a Bacteroides fragilis bacteremia, and pneumonia. The patient now has become more lethargic. Her blood pressure is trending down, and her heart rate is increasing. She is also very lethargic. MEDICATIONS: The patient is on IV Zosyn. This is day 2 of treatment with day 1 being the first day that the repeat blood cultures were sterile. PHYSICAL: Vital Signs: Temperature is 96.6 degrees, pulse 107, respirations 26. Blood pressure is 102/67. General: This is an obese, elderly female. She is lethargic. Head, eyes, ears, nose and throat: No drainage noted from the nose or ears. I do not see any white patches in her mouth. Neck: No meningismus. Lungs: Clear to auscultation. Cardiovascular: Heart rate is irregular. Abdomen: Soft and tender. Extremities: In the right groin, there is a triple-lumen catheter in place. The site is not purulent but is a little bit erythematous. Neurologic: The patient is lethargic. She does, however, follow request to move her extremities. LAB AND X-RAY: Chest x-ray shows decrease in pulmonary edema and in the infiltrates. The repeat blood cultures are negative as mentioned above. CBC shows a white count of 18,060, hemoglobin 8.9, platelet count 255,000. Creatinine is 1.3. GFR is 39. ASSESSMENT AND PLAN: The patient has Bacteroides bacteremia and Escherichia coli urinary tract infection. I plan to continue with Zosyn. The patient today is having a decrease in her blood pressure, an increase in her pulse. She is also very lethargic. Possibly she is getting septic. One possibility might be from her right groin where she has a triple-lumen catheter in place. In any event, I am going to repeat the blood cultures and get a urine culture and start the patient on daptomycin. COMORBIDITIES: The patient is elderly, she is obese, and she has sleep apnea, gastroesophageal reflux disease, diabetes mellitus, and COPD. She also is a cigarette smoker. cc: MD Mehdi Sherwood MD
[2019-02-25] MEDS ORDERED: ALBUMIN 25% IV ONE ×2 (15:29→21:00)
[2019-02-25] MEDS ORDERED: LASIX IV ONE ×2 (16:00→20:30)
--- NOTE | 2019-02-25 16:07 | Diag Imaging Result Doc PS360 ---
EXAM: CHEST-PORTABLE 02/25/2019 HISTORY: Sepsis TECHNIQUE: AP portable upright at 1546 COMMENT: There is cardiomegaly. There is a fairly large left pleural effusion and a smaller effusion on the right. There is hazy interstitial opacity over the right base and much of the left lung is atelectatic. IMPRESSION: Large left pleural effusion. The possibility of underlying pneumonia cannot be excluded. Mild pulmonary edema. Electronically signed by Justin Richards 02/25/2019 4:05 PM
--- NOTE | 2019-02-25 16:12 | PROGRESS NOTE ---
DATE: 02/25/2019 SUBJECTIVE: This morning, early in the morning, pretty early, I went to examine Ms. Petersen. When I went by, she was sleeping. I was told by the nurse that she did not sleep the whole night and that she just had breakfast, and she was catching up so I did not examine her. Later on during the day, the same nurse called me and said Ms. Petersen had still not been responsive and that her blood pressure was now trending down and her pulse is trending up, so I went to evaluate her. At the bedside was the daughter and the son-in-law. Ms. Petersen was lethargic. However, she would open her eyes and tell me that she is doing well and then go right back to sleep. OBJECTIVE: Vital Signs: Blood pressure is 130/56, pulse of 65, respirations are 25, temperature is 96.6 degrees. The patient was saturating 97% on 3 L. General Examination: Ms. Petersen is an 83- year-old, elderly, female. She is in bed. She did not seem to be in any cardiopulmonary distress. HEENT: Mucosa is pink and moist. Anicteric. Acyanotic. Neck: Supple. No JVD. Chest: Air entry is bilaterally reduced. A few crackles posteriorly. Cardiovascular: Regular rate and rhythm. Occasional extrasystolic beats. No murmurs, no rubs, no gallops. GI: Abdomen is soft. Distended but there was no tenderness. No hepatosplenomegaly. There is a right femoral central line in place. There is edema in the lateral aspect of the abdominal wall. Extremities: There is 1+ pedal edema. 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 She moves all extremities upon stimulation and she will wiggle her toes when I asked her to do so. Laboratory Data: White cell count is 18.06, hemoglobin is 8.9, platelet count of 256,000. The patient has 6% of bands on the peripheral smear. Chemistry is also reviewed. Creatinine is 1.3. Rest of chemistry is unremarkable. Laboratory data has been reviewed. Is and Os: Urine output was 1210. She is currently negative balance of 33 per documentation. She, however, looks volume overloaded clinically. There is not any new imaging data. Patient's repeat blood culture has come back 48 hours negative. A repeat blood culture has been done this afternoon by infectious disease. The patient's antimicrobials have also been changed. She is currently on Zosyn and daptomycin has been added. ASSESSMENT: 1. Sepsis on presentation, complicated with altered mental status, Bacteroides fragilis bacteremia, and Escherichia coli urinary tract infection. The patient's repeat blood cultures have been negative. 2. Altered mental status. Up until yesterday, Ms. Petersen was awake, alert, was conversational. This morning, she looks quite lethargic. Repeat blood cultures have been done. I will get an arterial blood gas to make sure that she is not retaining her CO2. We will also get a chest x- ray. Repeat blood cultures have been done. Antibiotics have been switched. Daptomycin has been added to the Zosyn. 3. Cholelithiasis with mildly dilated gallbladder on imaging studies noted. The patient did not particularly have any pains at the gallbladder site and the imaging does not seem to suggest any acute cholecystitis. 4. Transient atrial fibrillation with rapid ventricular response, presumably sepsis-induced. The patient has been evaluated by cardiology. 5. History of chronic obstructive pulmonary disease. 6. Diabetes mellitus. The patient is currently on an insulin regimen. Glucose is better controlled. 7. Acute hypoxemic respiratory failure. That got improved. We are getting another arterial blood gas this morning to make sure that she has not gone into another CO2 narcosis. 8. Nonoliguric acute kidney injury, improving. 9. Hypertension, improved. 10. Fluid overload. The patient is getting albumin to help enhance the intravascular volume. PLAN: In general, I think Ms. Petersen was doing a lot better up until yesterday. However, this morning, she remains quiet obtunded. We are getting an ABG to rule out any CO2 narcosis, and repeat blood cultures and chest x-rays, and urine cultures have all been done to rule out any superimposed or a different hospital associated infection. cc: MD Mehdi Liu MD
[2019-02-25] MEDS: LOVENOX SUBQ SCH (16:20)
[2019-02-25 16:32] LABS: ALLEN TEST YES; BE -3.3 mmoll (-3.0-3.0); BLOOD TYPE ARTERIAL; HCO3-(ACT) 22.3 mmoll (20.0-26.0); METHB 1.1 % (0.0-1.5); O2(CT) 13.9 mL/dL (15.0-23.0); O2HB 95.5 % (95.0-99.0); PO2(98.6) 100 mmHg (60-100); SAMPLE BLOOD; THB 10.2 g/dL (11.5-17.4)
[2019-02-25 16:33] LABS: MODALITY CANNULA
[2019-02-25 16:35] LABS: PCO2(98.6) 69 mmHg (35-45); pH(98.6) 7.18 (7.35-7.45)
--- NOTE | 2019-02-25 19:52 | PULMONOLOGY CONSULTATION ---
DATE: 02/25/2019 CONSULTING PHYSICIAN: Dr. Baugh. REASON FOR CONSULTATION: Hypercarbic respiratory failure. HISTORY OF PRESENT ILLNESS: This is an 83-year-old female who presented to the [facility] after falling on the floor and being unable to get up. She was found to be septic with Escherichia coli UTI and Bacteroides fragilis bacteremia. Antibiotics were adjusted per her primary care physician. She initially improved. Over the next few days she progressively became worse, had a rise in her white blood cell count, then had atrial fibrillation with rapid ventricular rate. She was started on Cardizem, and she was transferred to [facility] ICU, and Cardiology was consulted. We continued Zosyn. She improved. She became alert, more conversational, was taking sips of water and asking for food. Last night it is documented that the patient was awake, alert, oriented, that she was following commands. According to the nurses, the patient did not sleep through the night. When they attempted to wake her at 8:00 this morning, she went woke to touch, but she was very drowsy. At about 1:00, the patient was lethargic with heart rates from it looks like 160 to 120 and blood pressures that dropped to 74. Around noon heart rates did increase to the 110s to 120s. She did have a transient drop in her blood pressure. It looks like it went to 74/63, but then pressures just before this were 120/64 and just right after were 103/63. So, I am not sure how accurate this pressure was. Since, blood pressures have been in the 103 to 140 over 60 to 70's range. ABGs were obtained. She was found to have a pH of 7.18, with a pCO2 of 69, PO2 of 100, bicarb of 22. This was on 3 L nasal cannula. She was moved to ICU and placed back on BiPAP at the time of my exam, she is on BiPAP. She is breathing comfortably. She did open her eyes to her name being called. I asked how she was feeling. She shook her head yes. She did move her arms to command, and she does withdraw from pain. PAST MEDICAL HISTORY: COPD, obstructive sleep apnea, gastroesophageal reflux disease, diabetes mellitus type 2. PAST SURGICAL HISTORY: Back surgeries, neck surgery. SOCIAL HISTORY: She smokes. I am not sure about alcohol or illicit drugs. ALLERGIES: No known drug allergies. HOME MEDICATIONS: Unobtainable at this time. REVIEW OF SYSTEMS: Unobtainable. PHYSICAL EXAMINATION: General: This is an 83-year-old female who is lying on the bed in ICU with BiPAP in use. Vital Signs: Blood pressure is 133/52 with a heart rate of 60. Respirations are 20 to 22, temperature is 96.6 with O2 saturations 93 and 94 on BiPAP. HEENT: Head is normocephalic, atraumatic. Mucous membranes are moist. Sclerae are anicteric. Neck: Supple with trachea midline. Cardiovascular: Regular rate and rhythm. S1 and S2 appreciated. She has generalized body edema with peripheral pulses palpable x4 extremities. Pulmonary: Breath sounds are coarse throughout. She does have some bibasilar crackles. Chest rise and fall symmetric with respiration. Gastrointestinal: Abdomen is soft, nontender, nondistended. Bowel sounds in all 4 quadrants. Neurologic: She is lethargic. She does withdraw from pain. She did move her arms gross movement to command. LABS: WBC is 18 with hemoglobin 8.9, hematocrit 28.4, and platelets of 255,000. Sodium 145, potassium 3.6, BUN 40, creatinine 1.3 with glucose of 128. ABGs, pH is 7.18, with pCO2 of 69, PO2 of 100 and bicarb 22.3. These are on 3 L nasal cannula. Her lactate is 0.70. Blood cultures and urine cultures are pending. Chest x-ray revealed a large left pleural effusion. Possibility of underlying pneumonia cannot be excluded. Mild pulmonary edema. ASSESSMENT AND PLAN: 1. Acute hypercarbic respiratory failure. The patient has been placed back on BiPAP which we will continue. She has been moved to ICU for close monitoring. We will repeat a chest x-ray and ABGs in the morning. 2. Sepsis on presentation complicated with altered mental status, Bacteroides fragilis bacteremia and Escherichia coli urinary tract infection. Repeat blood cultures are negative, although we are repeating blood cultures and urine culture redrawn today. 3. Altered mental status as stated above. 4. Transient atrial fibrillation with rapid ventricular response. She is currently in sinus rhythm. Cardiology is following. 5. History of chronic obstructive pulmonary disease. We will continue bronchodilators and supplemental oxygen. 6. Fluid overload. We will continue albumin and Lasix. 7. Diabetes mellitus. We will continue her current regimen. 8. Nonoliguric acute kidney injury. 9. The patient is currently on Zosyn and daptomycin per the primary team, which we will continue. Thank you for this consultation. We look for to participating in this patient's care. Dictated by MARIA VICTORIA Keating for Donal Moyer MD History and physical exam was performed by MARIA VICTORIA Escalera. History, labs, and x-rays were reviewed by this practitioner remotely. I agree with Ms. Olivares's assessment and plan. Donal Moyer M.D. cc: MARIA VICTORIA Keating MD Michael Putman, MD [facility]
[2019-02-26 04:53] LABS: ALLEN TEST YES; BE -3.3 mmoll (-3.0-3.0); BLOOD TYPE ARTERIAL; HCO3-(ACT) 22.3 mmoll (20.0-26.0); METHB 1.1 % (0.0-1.5); O2(CT) 12.5 mL/dL (15.0-23.0); O2HB 94.1 % (95.0-99.0); PO2(98.6) 79 mmHg (60-100); SAMPLE BLOOD; SAO2 98.2 % (95.0-100.0); THB 9.4 g/dL (11.5-17.4); pH(98.6) 7.24 (7.35-7.45)
[2019-02-26 04:55] LABS: MODALITY BI PAP; PCO2(98.6) 57 mmHg (35-45)
[2019-02-26] MEDS: ZOSYN 4.5 GM in NS 100 ML IV SCH ×4 (06:00→23:01)
[2019-02-26] MEDS: PROTONIX IV SCH (06:21)
[2019-02-26] MEDS: HUMALOG SUBQ SCH ×4 (06:22→22:55)
[2019-02-26 07:37] LABS: BASO# 0.04 X1000 (0.0-0.2); BASO% 0.3 % (0.0-0.8); EOS% 1.4 % (0.0-10.0); HEMATOCRIT 27.7 % (37.0-47.0); HEMOGLOBIN 8.5 g/dL (12.0-16.0); IMM GRAN# 0.07 X1000 (0.0-0.04); IMM GRAN% 0.5 % (0.0-0.5); LYMPH# 1.91 X1000 (1.2-3.4); LYMPH% 13.4 % (20.5-51.1); MCH 24.5 PG (27-31); MCHC 30.7 g/dL (33-37); MCV 79.8 FL (81-99); MONO# 1.35 X1000 (0.11-0.59); MONO% 9.5 % (1.7-9.3); MPV 12.9 FL (7.4-10.4); NEUT# 10.66 X1000 (1.4-6.5); NEUT% 74.9 % (42.2-75.2); PLT 250 X1000 (130-400); RBC 3.47 XMIL (4.2-5.4); RDW 19.1 % (11.5-14.5); WBC 14.23 X1000 (4.8-10.8)
[2019-02-26 08:02] LABS: CALCIUM 8.9 mg/dL (8.8-10.2); CREATININE 1.5 mg/dL (0.5-0.9); POTASSIUM 3.7 mmol/L (3.5-5.1)
--- NOTE | 2019-02-26 08:06 | PROGRESS NOTE ---
DATE: 02/26/2019 SUBJECTIVE: At the moment of my physical exam, this patient was using a BiPAP machine. X-ray yesterday showed a large left pleural effusion. The possibility of underlying pneumonia cannot be excluded, with mild pulmonary edema. The patient has been transferred to the ICU. She has been following commands for me, and answering some of my simple questions. She is oriented x3, but she seems to be extremely weak. Even though she received a large dose of Lasix yesterday, around 160 mg, her urine output was not significant. OBJECTIVE: Vital Signs: Temperature 97.8 degrees, pulse 63, respiratory rate 25, blood pressure 142/48, oxygen saturation 100% on BiPAP machine. HEENT: Head normocephalic. No trauma. PERRLA. Neck: Supple. Chest: Decreased breath sounds globally, with crackles mostly on the left side, but basically bilaterally. Cardiovascular: RRR. Abdomen: Soft. It is slightly distended, but nontender to palpation. No hepatosplenomegaly. Extremities: There is 1+ lower extremity edema, 3+ left upper extremity edema, 1+ right upper extremity edema. No clubbing, no cyanosis. Neurological: This patient is awake. She is on the BiPAP machine right now. She answered my simple questions. She is oriented to time, place, and location. She follows commands. LABORATORY DATA: WBC 14.2, hemoglobin 8.5, hematocrit 27.7, platelets 250,000. PH 7.24, pCO2 of 57, PO2 of 79 on the BiPAP machine. Pending BMP. ASSESSMENT AND PLAN: 1. Sepsis on presentation, complicated with altered mental status, bacteroides fragilis bacteremia, Escherichia coli urinary tract infection. This patient's repeat blood cultures have been negative, as well as the urine culture. We will continue to monitor this closely. 2. Altered mental status. It looks like she was a little bit lethargic a couple days ago. Today, she seems to be a little bit more awake, but still with generalized weakness. She is answering my questions. 3. Cholelithiasis with slightly dilated gallbladder on images status. Noted. She is not complaining of pain at this moment. Images do not suggest acute cholecystitis. 4. Transient atrial fibrillation with rapid ventricular response, likely related to sepsis. The patient has been evaluated by Cardiology. She seems to be in sinus rhythm right now. 5. History of chronic obstructive pulmonary disease. Will monitor. Pulmonary Department on board. 6. Large left pleural effusion. She has been receiving Lasix and albumin, but her urine output has not been significant. I am not sure if she is going to get a thoracentesis done. I will wait for Pulmonary Department recommendations. 7. Nonoliguric acute kidney injury. Pending BMP today, but her BUN and creatinine have been stable for the past few days. 8. Acute hypoxemic respiratory failure with hypercarbic respiratory failure. That was better. She is back on the bilevel positive airway pressure machine. Large left pleural effusion. Will monitor. Pulmonary Department on board. 9. Hypertension, better. 10. Fluid overload. This patient has been getting albumin and also Lasix, but she still seems to be overloaded. Will continue with the same management. Probably, we will go ahead and give her an extra dose of albumin and Lasix again. cc: MD Mehdi Sepulveda MD
--- NOTE | 2019-02-26 08:25 | INFECTIOUS DISEASE PROGRESS NO ---
DATE: 02/26/2019 PRESENT ILLNESS: The patient has an Escherichia coli urinary tract infection, Bacteroides fragilis bacteremia, pneumonia, and now a large left pleural effusion. MEDICATIONS: The patient is on IV Zosyn. This is day 3 of it, and this is also day 1 of daptomycin, which was started yesterday. PHYSICAL EXAMINATION: Vital Signs: Temperature is 97.8 degrees, pulse 63, respirations 25, blood pressure 142/48. General: This is a morbidly obese, elderly female. She is lethargic. Head, Eyes, Ears, Nose, and Throat: She does not have any drainage from her nose or ears. I did not see any white coating on her tongue. Neck: No pain with movement. Lungs: Diminished breath sounds on the left side. Breath sounds were heard on the right side, and I did not hear any rales or rhonchi. Cardiovascular: Heart rate at times is regular and other times it seemed to be irregular. Abdomen: Soft and nontender. Extremities: In the right groin there is a triple- lumen catheter in place. The site is not purulent or erythematous. Neurologic: The patient is very lethargic. LAB AND X-RAY: Chest x-ray shows a large left pleural effusion. Creatinine is 1.3, GFR is 39. Blood and urine cultures are pending. CBC shows a white count of 14,230, hemoglobin 8.5, platelet count 250,000. Blood gases show pH 7.24, PO2 of 79, pCO2 of 57. ASSESSMENT AND PLAN: The patient has bacteremia, urinary tract infection, and now a large right pleural effusion. I plan on continuing the current antibiotics pending culture results and also discussed with Dr. Moyer the possibility of aspirating some fluid from the right pleural effusion to rule out empyema. COMORBIDITIES: The patient is elderly. She is morbidly obese. She has sleep apnea, gastroesophageal reflux disease, diabetes mellitus, COPD, and she does smoke cigarettes. cc: MD Mehdi Sherwood MD
--- NOTE | 2019-02-26 08:46 | Diag Imaging Result Doc PS360 ---
CHEST-PORTABLE - 02/26/2019 INDICATION: SOB COMPARISON: 02/25/2019 FINDINGS: Stable severe cardiomegaly and pulmonary vascular congestion. There is slight worsening hazy interstitial pulmonary edema bilaterally. There is also worsening of a small to moderate right basilar pleural effusion. Stable significant opacification of the left lung base mostly due to large pleural effusion. IMPRESSION: Worsening from prior. Electronically signed by Cristiano Lynn 02/26/2019 8:44 AM
[2019-02-26] MEDS: NORVASC PO SCH ×2 (10:01→23:00)
[2019-02-26] MEDS: COREG PO SCH ×2 (10:01→23:00)
[2019-02-26] MEDS: ASPIRIN PO SCH (10:02)
[2019-02-26] MEDS: XOPENEX NEB INH SCH ×3 (11:48→21:30)
[2019-02-26] MEDS ORDERED: SODIUM BICARBONATE 8.4% IV PUSH ONE (12:53)
[2019-02-26] MEDS: CUBICIN IV SCH (13:03)
[2019-02-26] MEDS: NS IV SCH (13:03)
--- NOTE | 2019-02-26 14:18 | PULMONOLOGY PROGRESS NOTE ---
DATE: 02/26/2019 SUBJECTIVE: The patient is currently on BiPAP. She does answer simple questions. Dr. Fernandes has requested a left-sided thoracentesis. I discussed this with Ms. Petersen. The benefit of doing the procedure would be to possibly identify an empyema or an infection in the left chest. The disadvantages include possible pneumothorax and bleeding. After the discussion, Ms. Petersen indicated she wanted to think about it and to check with her tomorrow. The patient has a daughter who by nursing report has been estranged from Ms. Petersen for some time and, therefore, Ms. Petersen appears to be the primary decision maker in her medical care. OBJECTIVE: The patient has been afebrile for the last 24 hours. Blood pressure 139/61, heart rate 57, respiratory rate 23, oxygen saturation 94% on BiPAP. HEENT: Pupils are equal and reactive. Oropharynx appears clear. Neck is supple. Chest reveals decreased breath sounds in both lung bases. Cardiac Examination: S1-S2. Abdomen is obese and soft. Extremities reveal trace to 1+ peripheral edema. LABORATORIES: Arterial blood gas reveals a pH of 7.24, pCO2 of 57, pO2 of 79. White blood count 14.23, hemoglobin 8.5, platelet count 250,000. Arterial blood gas reveals pH of 7.24, pCO2 of 57, pO2 of 79 on 30% FiO2 and BiPAP. Chest x-ray reveals worsening pulmonary edema. IMPRESSION: An 83-year-old with: 1. Acute hypoxemic respiratory failure. 2. Acute hypercapnic respiratory failure. 3. Left greater than right pleural effusion. 4. Pulmonary edema. 5. Diastolic heart failure. 6. Acute renal failure. 7. Morbid obesity with a body mass index greater than 40. 8. Urinary tract infection on presentation. 9. Bacteremia on presentation with a bacteria different from her urinary tract infection. DISCUSSION: An 83-year-old with multiple problems outlined above. With her worsening heart failure, effusions, renal failure, hypoxemic and hypercapnic respiratory failure, and morbid obesity, her overall prognosis is poor given her age. She had almost no effusion or infiltrates on presentation and has developed effusions during this hospitalization. It is possible that she has developed empyema but it was not evident on her initial presentation. Currently, she has requested not to perform thoracentesis but she is thinking about over the next day. RECOMMENDATIONS: 1. Continue BiPAP. 2. Single dose of sodium bicarbonate for acidosis. 3. Continue antibiotics per infectious disease. 4. Would consider getting a palliative care consultation. Her overall prognosis appears poor. cc: MD Mehdi Dietrich MD
[2019-02-26] MEDS: LOVENOX SUBQ SCH (16:45)
[2019-02-27 04:51] LABS: ALLEN TEST YES; BE -1.3 mmoll (-3.0-3.0); BLOOD TYPE ARTERIAL; HCO3-(ACT) 23.8 mmoll (20.0-26.0); METHB 1.6 % (0.0-1.5); O2(CT) 12.3 mL/dL (15.0-23.0); O2HB 92.3 % (95.0-99.0); PO2(98.6) 72 mmHg (60-100); SAMPLE BLOOD; SAO2 96.3 % (95.0-100.0); THB 9.4 g/dL (11.5-17.4); pH(98.6) 7.28 (7.35-7.45)
[2019-02-27 04:52] LABS: MODALITY BI PAP; PCO2(98.6) 55 mmHg (35-45)
[2019-02-27] MEDS: ZOSYN 4.5 GM in NS 100 ML IV SCH (05:45)
[2019-02-27] MEDS: PROTONIX IV SCH (06:06)
[2019-02-27] MEDS: SODIUM CHLORIDE 0.9% INJ SCH (06:06)
[2019-02-27 06:14] LABS: ALB/GLOB RATIO 1.1; ALBUMIN 2.7 g/dL (3.5-5.0); CALCIUM 8.1 mg/dL (8.8-10.2); CREATININE 1.8 mg/dL (0.5-0.9); POTASSIUM 3.6 mmol/L (3.5-5.1); TOTAL BILIRUBIN 0.74 mg/dL (0.20-1.00); TOTAL PROTEIN 5.1 g/dL (6.3-8.3)
[2019-02-27] MEDS: HUMALOG SUBQ SCH ×4 (06:14→20:09)
--- NOTE | 2019-02-27 07:33 | Diag Imaging Result Doc PS360 ---
EXAM: CHEST-PORTABLE INDICATION: dyspnea TECHNIQUE: One view COMPARISON: 02/26/2019 FINDINGS: There is a moderate to large size left pleural effusion that appears to have increased since the previous study. However, interstitial edema at the right lung base has improved. No new consolidation is identified. Cardiac silhouette is stable. IMPRESSION: Increase in size of left pleural effusion but gross improvement of edema at the right lung base. Electronically signed by Bassam Stock 02/27/2019 7:30 AM
[2019-02-27 08:01] LABS: BASO# 0.06 X1000 (0.0-0.2); BASO% 0.4 % (0.0-0.8); EOS# 0.29 X1000 (0.0-0.7); HEMATOCRIT 27.8 % (37.0-47.0); HEMOGLOBIN 8.7 g/dL (12.0-16.0); IMM GRAN# 0.06 X1000 (0.0-0.04); IMM GRAN% 0.4 % (0.0-0.5); LYMPH# 1.56 X1000 (1.2-3.4); LYMPH% 10.6 % (20.5-51.1); MCH 25.1 PG (27-31); MCHC 31.3 g/dL (33-37); MCV 80.1 FL (81-99); MONO# 1.21 X1000 (0.11-0.59); MONO% 8.2 % (1.7-9.3); MPV 12.8 FL (7.4-10.4); NEUT# 11.56 X1000 (1.4-6.5); NEUT% 78.4 % (42.2-75.2); PLT 314 X1000 (130-400); RBC 3.47 XMIL (4.2-5.4); RDW 19.1 % (11.5-14.5); WBC 14.74 X1000 (4.8-10.8)
--- NOTE | 2019-02-27 08:03 | PROGRESS NOTE ---
DATE: 02/27/2019 SUBJECTIVE: This patient is still in respiratory distress. She is still using the BiPAP machine, kidney function is getting worse, but the urine output seems to be better compared with yesterday. We have a negative balance of 824 mL during this hospitalization, and she has had a bowel movement. I will readjust the dose of Zosyn based on her kidney function. Infectious Disease Department following this patient. X-ray for me looks a little bit worse on the left side with pleural effusion. The right side though looks a little bit better, and is more expanded. I will stop the Lovenox 40 mg daily and I will put her on heparin twice a day. Overall, this patient has poor prognosis. I offered the possibility of a thoracentesis on the left side, but she wants to think about it. PHYSICAL EXAMINATION: Temperature 96.9 degrees, pulse 60, respiratory rate 29, blood pressure 131/61, and oxygen saturation 92 on the BiPAP machine. HEENT: Head normocephalic. No trauma. PERRLA. Neck: Supple. Lungs: Decreased breath sounds globally with crackles on the left side, and right base also crepitus bilaterally. Cardiovascular: RRR. Gastrointestinal: Abdomen is soft, slightly distended but nontender to palpation. No hepatosplenomegaly. Extremities: 1+ lower extremity edema. 2+ left upper extremity edema, and 1+ right upper extremity. No clubbing. No cyanosis. Neurological: On examination, patient is awake. She is on the BiPAP machine at this moment. She is answering some of my simple questions. She has been refusing a thoracentesis. She actually wants to think about it. She is following commands. LABORATORY: Pending CBC. Sodium 143, potassium 3.6, chloride 104, bicarbonate 24, BUN 54, creatinine 1.8, glucose 99, and calcium 8.1. ASSESSMENT AND PLAN: 1. Sepsis on presentation, complicated with altered mental status, Bacteroides fragilis bacteremia, and E. Coli urinary tract infection. This patient's repeated blood cultures have been negative as well as the urine culture. We will continue to monitor this closely. 2. Altered mental status. She seems to be really tired, but she is answering my questions. She does have generalized weakness. 3. Cholelithiasis with significant dilated gallbladder on images as noted. She is not complaining of pain at this moment, and images do not suggest acute cholecystitis. 4. Large left pleural effusion. She has been getting some Lasix and albumin. Her urine output has been around 1800 mL. She has a negative balance now of 800 mL or so. She may be a good candidate for a left thoracentesis, but she wants to think about it. 5. History of chronic obstructive pulmonary disease. We will monitor. Pulmonary Department on board. 6. Transient atrial fibrillation with RVR, likely related to sepsis. Cardiology evaluated this patient. 7. Known oliguric acute kidney injury, BUN and creatinine trending up. Urine output seems to be around 1.8 L. We will monitor. Probably, we will need to involve Nephrology Department if this gets worse. Yesterday, she did not receive Lasix, and the urine output seems to be decent. Albumin is 2.7. 8. Acute hypoxemic respiratory failure with hypercarbic respiratory failure. Continue with the BiPAP machine. Pulmonary Department on board. This is multifactorial. 9. Hypertension better. 10. Fluid overload. This patient has been getting albumin and Lasix. Yesterday though, she did not receive any Lasix or albumin, and the urine output was around 1.8 L so even though she did not get any kind of medications, and her BUN and creatinine are up she had a decent urine output. We will monitor. CRITICAL CARE TIME: 35 minutes. cc: MD Mehdi Sepulveda MD
[2019-02-27] MEDS ORDERED: SODIUM BICARBONATE 8.4% IV PUSH ONE (08:31)
[2019-02-27] MEDS: HEPARIN SUBQ SCH ×2 (08:47→20:08)
[2019-02-27] MEDS: COREG PO SCH ×2 (08:48→20:54)
[2019-02-27] MEDS: ASPIRIN PO SCH (08:48)
[2019-02-27] MEDS: NORVASC PO SCH ×2 (08:48→20:08)
[2019-02-27] MEDS: XOPENEX NEB INH SCH ×3 (10:30→21:25)
[2019-02-27] MEDS: ZOSYN 3.375 GM in NS 50 ML IV SCH ×3 (11:44→22:59)
--- NOTE | 2019-02-27 14:20 | INFECTIOUS DISEASE PROGRESS NO ---
DATE: 02/27/2019 PRESENT ILLNESS: The patient has an Escherichia coli urinary tract infection, Bacteroides fragilis bacteremia, pneumonia, and now a large left pleural effusion. MEDICATIONS: The patient has been on IV Zosyn for the past 4 days with day 1 being the first day that the repeat blood cultures were sterile. Daptomycin was started 2 days ago empirically to see if there was an infection from the groin catheter that might have caused a bacteremia, but the repeat blood cultures are sterile. PHYSICAL EXAMINATION: Vital Signs: Temperature is 97.1 degrees, pulse 58, respirations 22, blood pressure 147/61. General: This is a morbidly obese, elderly female. She is lethargic. She does not appear to be in any acute distress. Head/eyes/ears/nose/throat: She can hear my spoken words and see near objects. She does not have any white patches in her mouth. Neck: No stiffness. Lungs: I heard breath sounds on both sides, but no rales were present. Cardiovascular: Heart rate is irregular. Abdomen: Soft and not tender. In the right groin the patient has a triple- lumen catheter. Thus, the groin site is not purulent but it is a little erythematous Neurologic: The patient is awake. She can move her extremities. There is no tremor. LAB AND X-RAY: Chest x-ray shows a large left pleural effusion. Repeat blood and urine cultures thus far negative. Liver function studies are normal. CBC shows a white count of 14,740, hemoglobin 8.7, platelet count 314,000. Blood gases show a pH of 7.28, a PO2 of 72, and a pCO2 of 55. Creatinine is 1.8, GFR is 27. ASSESSMENT AND PLAN: The patient has bacteremia urinary tract infection and a large right pleural effusion. My plan now is to continue Zosyn but discontinue daptomycin. Dr. Moyer is seeing the patient and hopefully she will allow him to withdraw some pleural fluid to rule out that the patient has an empyema. COMORBIDITIES: Patient is elderly and morbidly obese. She has sleep apnea, gastroesophageal reflux disease, diabetes mellitus, chronic obstructive pulmonary disease, and she remains a cigarette smoker. cc: MD Mehdi Sherwood MD
--- NOTE | 2019-02-27 15:45 | Diag Imaging Result Doc PS360 ---
CHEST-2 VIEWS - 02/27/2019 3:34 PM INDICATION: POST THOR COMPARISON: 5:43 AM FINDINGS: There has been significant decrease in the left basilar pleural effusion. No pneumothorax. Stable cardiomegaly and pulmonary vascular congestion. Stable moderate pulmonary edema. IMPRESSION: Significant decrease in the left basilar pleural effusion. No complication. Electronically signed by Cristiano Lynn 02/27/2019 3:43 PM
--- NOTE | 2019-02-27 15:51 | Diag Imaging Result Doc PS360 ---
US THORACENTESIS W/IMAGE GUIDE - 02/27/2019 INDICATION: Left sided effusion TECHNIQUE: The risks and benefits of the procedure were discussed with the patient. All questions were answered. Written and verbal informed consent was obtained. Overlying skin was prepped and draped in sterile fashion. Anesthesia was achieved with injection of 10 cc of 1% lidocaine. COMPARISON: Chest x-ray from this morning FINDINGS: Aspiration of the right pleural space yielded slightly viscous pus. About 350 mL was obtained with the assistance of vacuum bottles and hand syringe pumping. IMPRESSION: Successful and uncomplicated ultrasound-guided left thoracentesis. Electronically signed by Cristiano Lynn 02/27/2019 3:49 PM
[2019-02-27 16:37] LABS: BODY FLUID SOURCE PLEURAL FLUID; SPECIMEN PLEURAL FLUID
[2019-02-27 16:53] LABS: MONOS 5 %; POLYS 95 %; WBC BF 173720 /cumm
[2019-02-27 17:17] LABS: AMYLASE BODY FLUID 53 U/L; GLUCOSE BODY FLUID 33 mg/dL; LDH BODY FLUID > 2500 U/L; TOTAL PROT BODY FLUID 3.3 g/dL
--- NOTE | 2019-02-27 18:25 | PULMONOLOGY PROGRESS NOTE ---
DATE: 02/27/2019 SUBJECTIVE: The patient remains on BiPAP. She does develop dyspnea when her BiPAP is removed. OBJECTIVE: Vital Signs: The patient has been afebrile for the last 24 hours. Blood pressure 122/50, heart rate 58, respiratory rate 19, oxygen saturation 98%. HEENT:: Pupils are equal and reactive. Oropharynx evaluation is limited. Neck: Supple. Chest: Diminished breath sounds left base. Cardiac: S1, S2. Abdomen: Obese and soft. Extremities: Trace edema. LABORATORIES: Chest x-ray reveals apparent increasing effusion on the left with decreased interstitial edema on the right. IMPRESSION: An 83-year-old with 1. Acute hypoxemic respiratory failure. 2. Acute hypercapnic respiratory failure. 3. Left-sided pleural effusion. 4. Pulmonary edema with improvement. 5. Acute renal failure. 6. Diastolic heart failure. 7. Morbid obesity with a BMI greater than 40. 8. Bacteremia on presentation of unknown source. DISCUSSION: An 83-year-old with problems outlined above. She remains on BiPAP. She has now agreed to perform a thoracentesis. I will not be able to do it this afternoon. I have discussed the case with Dr. Lynn and he has agreed to perform the thoracentesis. He is aware that she is on BiPAP, although he is not convinced that she has a large effusion. PLAN: 1. Schedule ultrasound-guided thoracentesis. If there is a significant effusion, thoracentesis will be performed by Dr. Lynn. 2. Additional dose of bicarbonate today for metabolic acidosis. 3. Continue antibiotics per Infectious Disease. 4. Consider palliative care consultation. With her AH, morbid obesity, diastolic heart failure, her overall prognosis is not good. cc: MD Mehdi Dietrich MD
[2019-02-28] MEDS: ZOSYN 3.375 GM in NS 50 ML IV SCH ×4 (05:39→23:14)
[2019-02-28 06:16] LABS: BASO# 0.05 X1000 (0.0-0.2); BASO% 0.5 % (0.0-0.8); EOS# 0.32 X1000 (0.0-0.7); HEMATOCRIT 26.8 % (37.0-47.0); HEMOGLOBIN 8.3 g/dL (12.0-16.0); IMM GRAN# 0.02 X1000 (0.0-0.04); IMM GRAN% 0.2 % (0.0-0.5); LYMPH# 1.49 X1000 (1.2-3.4); LYMPH% 13.8 % (20.5-51.1); MCH 24.5 PG (27-31); MCV 79.1 FL (81-99); MONO# 0.95 X1000 (0.11-0.59); MONO% 8.8 % (1.7-9.3); NEUT# 7.93 X1000 (1.4-6.5); NEUT% 73.7 % (42.2-75.2); PLT 352 X1000 (130-400); RBC 3.39 XMIL (4.2-5.4); RDW 19.1 % (11.5-14.5); WBC 10.76 X1000 (4.8-10.8)
[2019-02-28 06:39] LABS: ALB/GLOB RATIO 0.8; ALBUMIN 2.4 g/dL (3.5-5.0); CALCIUM 8.4 mg/dL (8.8-10.2); CREATININE 1.9 mg/dL (0.5-0.9); MAGNESIUM 1.7 mg/dL (1.5-2.7); PHOSPHORUS 4.2 mg/dL (2.7-4.5); POTASSIUM 3.4 mmol/L (3.5-5.1); TOTAL BILIRUBIN 0.67 mg/dL (0.20-1.00); TOTAL PROTEIN 5.6 g/dL (6.3-8.3)
--- NOTE | 2019-02-28 07:47 | Diag Imaging Result Doc PS360 ---
CHEST-PORTABLE - 02/28/2019 INDICATION: dyspnea COMPARISON: 02/27/2019 FINDINGS: Stable moderate left basilar pleural effusion. Stable left basilar infiltrate. There is been significant improvement in right lower lobe infiltrate/atelectasis. There is worsening left upper lobe infiltrate. Stable cardiomegaly and significant pulmonary vascular congestion. IMPRESSION: Mixed changes, with very little overall change. Electronically signed by Cristiano Lynn 02/28/2019 7:45 AM
[2019-02-28] MEDS ORDERED: ALBUMIN 25% IV ONE (08:37)
[2019-02-28] MEDS: XOPENEX NEB INH SCH ×3 (09:12→21:35)
--- NOTE | 2019-02-28 09:25 | PROGRESS NOTE ---
DATE: 02/28/2019 SUBJECTIVE: As per the patient she feels about the same compared with yesterday. X-ray with very little changes. I do believe there is a little bit of improvement on the left sided pleural effusion. She is status thoracentesis, they removed around 350 mL yesterday. Her white blood cell count decreased from 14 to 10. She has been having episodes of hypothermia and tachypnea, and some episodes of bradycardia as well. She is still using the BiPAP machine and she is drinking plenty of fluids as well. Her albumin is low at 2.4 and I will give her some albumin. I will continue with the antibiotics since the white blood cell count is trending down. Her bicarbonate level today is 25. OBJECTIVE: Vital Signs: Temperature 97.6 degrees, pulse 56, respiratory rate 22, blood pressure 127/54, oxygen saturation 94% on the BiPAP machine. HEENT: Head normocephalic, no trauma. PERRLA. Neck: Supple. I do not see JVD central trachea. Chest: Decreased breath sounds globally with bilateral crackles, mostly on the left side and right base crepitus and also some crepitus bilaterally as well. Cardiovascular: RRR. Abdomen: Soft. It is not distended. Positive bowel sounds. Extremities: 1+ lower extremity edema 2+ left upper extremity edema, 1+ right upper extremity edema, no clubbing, no cyanosis. Neurological: The patient is awake. She is able to say her name and date of . She is following commands. She is still on the BiPAP machine. LABORATORY: WBC 10.7, hemoglobin 8.3, hematocrit 26.8, platelets 352,000. Sodium 142, potassium 3.4, chloride 104, bicarbonate 25, BUN 53, creatinine 1.9, glucose 118, calcium 8.4, albumin 2.4. ASSESSMENT AND PLAN: 1. Sepsis on presentation, complicated with altered mental status, Bacteroides fragilis bacteremia and Escherichia coli urinary tract infection. Leukocyte count has been negative. New blood culture and urine culture are negative. I will continue with same management. Infectious Disease Department on board. 2. Altered mental status, she seems to be tired, but she is answering my question. Probably this is resolved. 3. Cholelithiasis with significant dilated gallbladder on images, noted. She is not complaining of pain at this moment and images did not suggest acute cholecystitis. 4. Large left pleural effusion status post thoracentesis where 350 mL of fluid has been removed. Aware. 5. History of chronic obstructive pulmonary disease , will monitor. Pulmonary Department on board. 6. Transient atrial fibrillation with rapid ventricular response, likely related to sepsis. Cardiology already evaluated this patient. 7. Acute kidney injury. Her urine output decreased compared with yesterday. Yesterday she voided 1800 mL and for today is 1075. I will give her a dose of albumin since her albumin is low to see if this can help. Overall, she has a negative balance of 263 mL, but she seems to be overloaded. 8. Acute hypoxemic respiratory failure with hypercarbic respiratory failure. Continue with the BiPAP machine. Pulmonary Department on board. This is multifactorial. 9. Hypertension better. 10. Fluid overload. I will continue with albumin. Probably we need to try a little bit of Lasix today, but her creatinine increased a little bit and the urine output decreased also, so we will monitor. CRITICAL CARE TIME: 40 minutes. cc: MD Mehdi Sepulveda MD
[2019-02-28] MEDS: HUMALOG SUBQ SCH ×4 (09:33→20:29)
[2019-02-28] MEDS: HEPARIN SUBQ SCH ×2 (09:40→20:28)
[2019-02-28] MEDS: ASPIRIN PO SCH (09:40)
[2019-02-28] MEDS: PROTONIX IV SCH (09:40)
[2019-02-28] MEDS: NORVASC PO SCH ×2 (09:40→20:28)
[2019-02-28] MEDS: COREG PO SCH ×2 (09:41→20:29)
--- NOTE | 2019-02-28 12:10 | INFECTIOUS DISEASE PROGRESS NO ---
DATE: 02/28/2019 PRESENT ILLNESS: The patient has an Escherichia coli urinary tract infection and a Bacteroides fragilis bacteremia and pneumonia, and now the patient has an associated left empyema. MEDICATIONS: The patient has been on IV Zosyn for 5 days. PHYSICAL EXAMINATION: Vital Signs: Temperature is 97.6 degrees, pulse 60, respirations 28, blood pressure 127/54. General: This is a morbidly obese, elderly female. She seems a little more alert today. She does not appear to be in any acute distress. Head/Eyes/Ears/Nose/Throat: The patient has a BiPAP mask in place. I did not see any drainage from her nose or ears. Neck: No stiffness. Lungs: The patient has decreased breath sounds in both sides, and I did not hear rales or rhonchi. Cardiovascular: Heart rate is irregular. Abdomen: Soft and nontender. The patient has a new triple-lumen catheter in the right groin. The site is not purulent or erythematous. Neurologic: The patient is awake. She can move her extremities. She tries to talk, but it is very difficult for it come through because she has a BiPAP mask on. LAB AND X-RAY: Chest x-ray shows bilateral infiltrates and pulmonary venous congestion. CBC shows a white count of 10,760, hemoglobin 8.3, platelet count 352,000. Creatinine is 1.9 GFR is 25. A culture from the chest from yesterday so far is not growing anything. ASSESSMENT AND PLAN: Patient has bacteremia, urinary tract infection, pneumonia, and now recently discovered right-sided empyema. My plan is to continue Zosyn as a single agent. COMORBIDITIES: The patient is elderly and morbidly obese. She has sleep apnea, gastroesophageal reflux disease, diabetes mellitus, chronic obstructive pulmonary disease, and the patient is a cigarette smoker. cc: MD Mehdi Sherwood MD
--- NOTE | 2019-02-28 15:14 | PULMONOLOGY PROGRESS NOTE ---
DATE: 02/28/2019 SUBJECTIVE: The patient is awake and alert. She is currently taking a break off of BiPAP, but has mild increased work of breathing. She appears to be oriented. OBJECTIVE: Vital Signs: The patient has been afebrile for the last 24 hours, blood pressure 157/57, heart rate 71, respiratory rate 24, oxygen saturation 94%. HEENT: Pupils are equal and reactive. Oropharynx is clear. Neck: Supple. Chest: Decreased breath sounds, left base. Cardiac: S1, S2. Abdomen: Obese and soft. Extremities: Trace to 1+ peripheral edema. LABORATORY DATA: Sodium 142, potassium 3.4, chloride 104, bicarbonate 25, BUN 53, creatinine 1.9. White blood count 10.76, hemoglobin 8.3, platelet count 232,000. Pleural fluid evaluation: White blood count from the pleural fluid 173,000 with 95% polys. PH is 6.0. Glucose is 33. LDH is greater than 2500. Total protein 3.3. IMPRESSION: A complicated, 83-year-old, white female with: 1. Empyema. 2. Acute hypoxemic respiratory failure. 3. Acute hypercapnic respiratory failure. 4. Acute renal failure. 5. Diastolic heart failure. 6. Morbid obesity with a body mass index of 40. 7. Bacteremia on presentation. With empyema and negative bacterial growth, it is possible/probable that the chest was the source of her bacteremia. DISCUSSION: An 83-year-old with problems outlined above. Her pulmonary status is marginal. She now has empyema. It will be difficult to place a chest tube in this patient due to her obesity, along with her marginal pulmonary status. She would likely require an aggressive intervention to drain this left pleural space. She would require intubation and probable prolonged mechanical ventilation, with no guarantee that she could be successfully liberated from life support. I will ask Dr. Gonzalez to evaluate her for chest tube placement. PLAN: 1. Continue antibiotics per Infectious Disease. 2. Consultation with Dr. Mikal Gonzalez. 3. Consider Palliative Care consultation to help address end-of-life discussions and patient wishes. cc: MD Mehdi Dietrich MD
--- NOTE | 2019-02-28 16:07 | Diag Imaging Result Doc PS360 ---
EXAM: CT THORAX W/O CONTRAST 02/28/2019 HISTORY: Empyema TECHNIQUE: This exam was performed using automated exposure control, adjustment of mA or kV according to patient size, and/or use of iterative reconstruction technique. COMMENT: The current examination is compared with the previous study of 02/16/2019. There are apparent bilateral loculated pleural effusions. The volume of pleural fluid has increased since the previous study. There is aorticopulmonary window adenopathy which has increased since the previous examination. There is a somewhat angular nodular opacity present in the anterior left apex which was not present previously. There is COPD. There is a nodule on image 30 in the right upper lobe measuring 5 mm in diameter. There is worsened pneumonia or atelectasis in the lingula and compressive atelectasis is present in both lower lobes particularly the left lower lobe. There is an opacity anteromedially in the right middle lobe which has not changed significantly since the previous study. There is some subcutaneous edema present over the lower chest and upper abdomen bilaterally. The regional skeleton appears to be intact. IMPRESSION: Worsened bilateral loculated pleural fluid collections. Worsened bibasilar atelectasis and/or pneumonia particularly in the left lower lobe. Worsened mediastinal adenopathy. Electronically signed by Justin Richards 02/28/2019 4:05 PM
[2019-02-28] MEDS: TYLENOL PO PRN (20:42)
--- NOTE | 2019-02-28 20:49 | GENERAL SURGERY CONSULTATION ---
DATE: 02/28/2019 REASON FOR CONSULTATION: Empyema, left chest. HISTORY OF PRESENT ILLNESS: This 83-year-old female has multiple chronic medical conditions, including COPD. She has diastolic heart failure with cardiomyopathy. She had a prolonged ICU course here where she has had respiratory failure and been on BiPAP. She has been treated for pneumonia as well. She has had an enlarging left-sided effusion which was tapped yesterday, and apparently 300 mL of purulent material was expressed, and it is consistent with empyema. I was consulted for further input. MEDICAL HISTORY: What is included in her HPI, as well as: 1. Obstructive sleep apnea. 2. Morbid obesity with a BMI of 40.9. She is 5 feet 5 inches, 246 pounds. 3. Diabetes. SURGICAL HISTORY: She has had back operations. From best I can tell, she has not had any thoracic surgery. She also had cervical spine operation. SOCIAL HISTORY: She does smoke. She lives alone in an apartment. No apparent alcohol. No drugs. REVIEW OF SYSTEMS: Not obtainable due to her pulmonary status. She is on BiPAP. She is not really conversant. MEDICATIONS: I have reviewed her inpatient medications. She is on Zosyn, nebulizer treatments, aspirin, and heparin subcutaneous. PHYSICAL EXAMINATION: General: This is a chronically ill-appearing, elderly female who is morbidly obese. Vital signs: She is afebrile. Pulse is 60, blood pressure 157/57. She is on BiPAP 30% FiO2, saturating in the mid to low 90s. Cardiovascular: Normal rate. Pulmonary: She is on BiPAP. She has equal chest rise. I do not see any surgical scars on her left chest, but she has very large breasts that encompasses the majority of her lateral chest and significant soft tissue here. Abdomen: Obese and soft, nontender. Integument: Warm and dry. Psychiatric: Somewhat of a depressed affect. Neurologic: She opens her eyes, tries to talk, but she cannot really, and generalized weakness. Peripheral vascular: She has 2+ bilateral lower extremity edema. Lymphatic: She has no cervical adenopathy. LABORATORY: Her white count is 10. This is down from 18 three days ago to 14, to now 10. Hematocrit is 26. Platelets 352,000. Her ABGs have shown persistent hypercapnic failure with respiratory acidosis; however, this has improved gradually over a couple days. Her PaO2 was 72. Her creatinine is 1.9. This has been gradually worsening over the last several days as well. Her albumin is 2.4. Pleural fluid showed a pH of 6 with 173,000 white blood cells. LDH is greater than 2500. Amylase was 53. Reviewed her x-rays, CT scans, echocardiograms. ASSESSMENT AND PLAN: This is an 83-year-old female with a fluid collection on the left, relatively small volume, but consistent with an empyema, most likely parapneumonic collection. She has multiple medical issues. I have actually spoken with her daughter, who is a patient of mine as well. She is chronically ill from a pulmonary standpoint. I feel as though any attempts at bedside chest tube placement would be of low yield and very difficult given her habitus. To affectively drain this collection, she would require video-assisted thoracoscopic drainage with lung isolation and a double-lumen endotracheal tube. My concern is that she would not wean from the ventilator following this given her other health issues. Her white count is now normal. She is afebrile, so from an Infectious Disease standpoint, she seems to be improving with single agent Zosyn. Plan is to obtain a CT scan of her chest to better define these fluid collections. If they are loculated and amenable to percutaneous drainage, a CT-guided drainage may be her best option. If they are small, it is doubtful from a compressive standpoint that she would benefit from any further drainage. Long-term antibiotics may be what is best. We will follow along. Very difficult patient due to her multiple medical issues. I have had a june discussion with her daughter in my office today. cc: MD Mehdi Weston MD
[2019-03-01 04:45] LABS: ALLEN TEST YES; BE 0.5 mmoll (-3.0-3.0); BLOOD TYPE ARTERIAL; HCO3-(ACT) 25.3 mmoll (20.0-26.0); O2(CT) 13.3 mL/dL (15.0-23.0); O2HB 93.1 % (95.0-99.0); PO2(98.6) 75 mmHg (60-100); SAMPLE BLOOD; SAO2 96.9 % (95.0-100.0); SRATE 12 BPM; THB 10.1 g/dL (11.5-17.4); pH(98.6) 7.33 (7.35-7.45)
[2019-03-01 04:47] LABS: MODALITY BI PAP; PCO2(98.6) 51 mmHg (35-45)
[2019-03-01] MEDS: ZOSYN 3.375 GM in NS 50 ML IV SCH ×4 (05:15→22:55)
[2019-03-01] MEDS: PROTONIX IV SCH (06:15)
[2019-03-01] MEDS: HUMALOG SUBQ SCH ×4 (06:15→23:33)
[2019-03-01 06:36] LABS: BASO# 0.05 X1000 (0.0-0.2); BASO% 0.6 % (0.0-0.8); EOS# 0.32 X1000 (0.0-0.7); EOS% 3.5 % (0.0-10.0); HEMATOCRIT 24.9 % (37.0-47.0); HEMOGLOBIN 7.6 g/dL (12.0-16.0); LYMPH# 1.76 X1000 (1.2-3.4); LYMPH% 19.5 % (20.5-51.1); MCH 24.2 PG (27-31); MCHC 30.5 g/dL (33-37); MCV 79.3 FL (81-99); MONO# 0.92 X1000 (0.11-0.59); MONO% 10.2 % (1.7-9.3); MPV 12.9 FL (7.4-10.4); NEUT# 5.99 X1000 (1.4-6.5); NEUT% 66.2 % (42.2-75.2); PLT 333 X1000 (130-400); RBC 3.14 XMIL (4.2-5.4); RDW 18.8 % (11.5-14.5); WBC 9.04 X1000 (4.8-10.8)
--- NOTE | 2019-03-01 07:09 | Diag Imaging Result Doc PS360 ---
EXAM: CHEST-PORTABLE 03/01/2019 HISTORY: dyspnea TECHNIQUE: AP portable at 0542 COMMENT: There is a left pleural effusion. The inspiration is less optimal than on 02/28/2019. The hazy opacity seen previously over the right base is again noted. There is cardiomegaly. IMPRESSION: Cardiomegaly with mild pulmonary edema and left pleural effusion. The possibility of underlying pneumonia in the left lower lobe cannot be excluded. Electronically signed by Justin Richards 03/01/2019 7:07 AM
[2019-03-01 07:19] LABS: ALB/GLOB RATIO 0.9; ALBUMIN 2.5 g/dL (3.5-5.0); CALCIUM 8.1 mg/dL (8.8-10.2); CREATININE 1.9 mg/dL (0.5-0.9); MAGNESIUM 1.7 mg/dL (1.5-2.7); PHOSPHORUS 3.3 mg/dL (2.7-4.5); POTASSIUM 3.2 mmol/L (3.5-5.1); TOTAL BILIRUBIN 0.63 mg/dL (0.20-1.00); TOTAL PROTEIN 5.4 g/dL (6.3-8.3)
[2019-03-01 07:34] LABS: EOS 2 % (1-10); LYMPHS 21 % (21-51); MONO 11 % (1-9); SEGS 66 % (42-75)
[2019-03-01] MEDS: HEPARIN SUBQ SCH ×2 (09:26→20:03)
[2019-03-01] MEDS: ASPIRIN PO SCH (09:26)
[2019-03-01] MEDS: NORVASC PO SCH ×2 (09:27→20:04)
--- NOTE | 2019-03-01 09:48 | PROGRESS NOTE ---
DATE: 03/01/2019 SUBJECTIVE: This patient is resting comfortably in bed. No acute events overnight. She is answering my questions, she is following commands. The plan is to probably put a chest tube on the left side, CT scan showed worsening bilateral loculated pleural effusion collections with worsened bibasilar atelectasis and/or pneumonia, particularly in the left lower lobe, worsened mediastinal adenopathy. PHYSICAL EXAMINATION: Vital signs: Temperature 97.2 degrees, pulse 58, respiratory rate 25, blood pressure 139/48, oxygen saturation 93 on the BiPAP machine. HEENT: Head normocephalic, no trauma. PERRLA. Neck: Supple. I do not see JVD. Central trachea. Chest: Decreased breath sounds globally with bilateral crackles, mostly on the left side and right base crepitus, crepitus bilaterally as well. Cardiovascular: Regular rate and rhythm. Abdomen: Soft, is not distended, is not painful. Extremities: One to 2+ extremity edema. No clubbing. No cyanosis. Neurological: Patient is awake, she is following commands. She is able to say her name and date of . She is on the BiPAP machine. LABORATORY DATA: WBC 9, hemoglobin 7.6, hematocrit 24.9, platelets 333,000. PCO2 51. Sodium 139, potassium 3.2, chloride 102, bicarbonate 28, BUN 55, creatinine 1.9, glucose 122, calcium 8.1. Albumin 2.5. ASSESSMENT AND PLAN: 1. Sepsis on presentation, complicated with altered mental status, Bacteroides fragilis bacteremia and Escherichia coli urinary tract infection. Leukocyte count has been normal. The new blood culture and urine culture are negative. Continue with same management. Infectious Disease Department on board. 2. Altered mental status, as above, but she seems to be tired. She is answering my questions. 3. Possible empyema, mostly on the left side. CT scan showed a loculated effusion. Probably Surgery Department will place a chest tube. 4. Acute hypoxemic and hypercarbic respiratory failure. Continue with the BiPAP machine and breathing treatment. 5. Cholelithiasis with no signs of cholecystitis. 6. Large left pleural effusion status post thoracentesis where 350 mL of fluid has been removed. 7. Transient atrial fibrillation with rapid ventricular response, likely due to sepsis. Cardiology already evaluated this patient. 8. Acute kidney injury. BUN and creatinine about the same compared with yesterday. Urine output has been around 1150 in the past 24 hours and she has been having bowel movements as well. 9. Hypertension. We will monitor for now. 10. Fluid overload. We will continue with same management. She is not eating or drinking too much and she has been having a decent urine output at least for the past couple days, so we will monitor. 11. Anemia. The hemoglobin dropped from 8.3 to 7.6. I will monitor this for now. Heart rate and blood pressures at this moment seem to be stable. 12. Physical deconditioning. I will ask Physical Therapy to do some range of motion in bed. DISPOSITION: This patient seems to be remarkably sick. She will need a chest tube to be placed on the left side, likely she will be intubated and the extubation is going to be really hard to do for this patient. We will continue to monitor this patient in the ICU. I will wait for the recommendations of Pulmonary Department and Surgery Department at this moment. cc: MD Mehdi Sepulveda MD
[2019-03-01] MEDS: XOPENEX NEB INH SCH ×3 (10:56→21:23)
[2019-03-01] MEDS: COREG PO SCH ×2 (11:32→23:32)
--- NOTE | 2019-03-01 12:20 | INFECTIOUS DISEASE PROGRESS NO ---
DATE: 03/01/2019 PRESENT ILLNESS: The patient has an Escherichia coli urinary tract infection and a Bacteroides fragilis bacteremia, pneumonia, and a left empyema. MEDICATIONS: This is the 6th day of treatment with IV Zosyn. PHYSICAL EXAMINATION: Vital Signs: Temperature is 97.2 degrees, pulse 58, respirations 25, and blood pressure is 139/48. General: This is a morbidly obese, elderly female. She does not appear to be dyspneic at this time. Head, Eyes, Ears, Nose, and Throat: She can hear my spoken words and see near objects. There is no drainage from the nose or ears. Neck: No pain with movement of the neck. Lungs: Clear on the right side. There were diminished breath sounds on the left side. Cardiovascular: Heart rate is irregular. Abdomen: Soft and nontender. Extremities: In the right groin, the patient has a triple-lumen catheter. The site is not erythematous or purulent. Neurologic: The patient is awake. She can move her extremities. She talks in a coherent fashion. There is no tremor. LABORATORY AND X-RAY: Chest x-ray shows a left pleural effusion and a right lower lobe opacity. The liver function studies are normal. Creatinine is 1.9. GFR is 25. The CBC shows a white count of 9040, hemoglobin 7.6, and platelet count 333,000. Blood gases show a pH of 7.33, a PO2 of 75, and a pCO2 of 51. ASSESSMENT AND PLAN: The patient has the following infections: Urinary tract infection, bacteremia, pneumonia, and empyema. My plan is to continue with Zosyn as a single agent. COMORBIDITIES: The patient is elderly and morbidly obese. She has sleep apnea, gastroesophageal reflux disease, diabetes mellitus, chronic obstructive pulmonary disease, and the patient is a cigarette smoker. cc: MD Mehdi Sherwood MD
--- NOTE | 2019-03-01 21:35 | PULMONOLOGY PROGRESS NOTE ---
DATE: 03/01/2019 SUBJECTIVE: The patient is awake and alert. She remains on BiPAP. She has mild to moderate work of breathing. OBJECTIVE: Vital Signs: She has been afebrile for the last 24 hours. Blood pressure 147/56, heart rate 94, respiratory rate 23, oxygen saturation 94%. HEENT: Pupils are equal and reactive. Oropharynx appears clear but evaluation is limited with BiPAP in place. Neck: Supple. Chest: Reveals diminished breath sounds bilaterally. Cardiac: S1-S2. Abdomen: Obese and soft. Extremities: Without edema. LABORATORIES: CT scan of the thorax reveals pleural effusions bilaterally with areas of consolidation left greater than right. Bibasilar areas of atelectasis/pneumonia. Effusions have significantly worsened when compared to 02/16/2019. Arterial blood gas reveals a pH 7.33, pCO2 of 51, pO2 of 75. Sodium 139, potassium 3.2, chloride 102, bicarbonate 28, BUN 55, creatinine 1.9. IMPRESSION: Complicated 83-year-old female with: 1. Empyema identified in the left chest, bilateral effusions. 2. Morbid obesity with a body mass index greater than 40. 3. Acute hypoxemic and acute hypercapnic respiratory failure. 4. Renal failure. 5. Diastolic heart failure. DISCUSSION: An 83-year-old with problems outlined above. The patient's respiratory status remains marginal. She does not have an easily identifiable fluid collection to drain with CT- guided biopsy. She would likely require a thoracotomy or at least a thoracoscopy with chest tube placement and drainage of the left chest. It is not clear that she could be successfully extubated. Her prognosis appears guarded to poor. PLAN: 1. Continue antibiotics per Infectious Disease. 2. Continue BiPAP. 3. Ongoing family discussions. Dr. Gonzalez spoke with the daughter yesterday. cc: MD Mehdi Dietrich MD
--- NOTE | 2019-03-01 22:02 | GENERAL SURGERY PROGRESS NOTE ---
DATE: 03/01/2019 SUBJECTIVE: Clinically, she is about the same. No fevers. She remains on BiPAP. Not changed from a pulmonary standpoint. OBJECTIVE: Vital signs: Pulse 60, blood pressure 143/54. General: She is alert. Cardiovascular: Normal rate. Pulmonary: She is on BiPAP 30%. Not really conversant. White count remains normal at 9, hematocrit is 24. I have reviewed her ABG. Her creatinine is 1.9. I have also reviewed a CT scan of the chest that shows a loculated pleural fluid collection, worse posteriorly and less inferiorly. There is pneumonia as well. ASSESSMENT AND PLAN: This is an 83-year-old female with loculated empyema on the left. I do not think this is causing significant compression alone contributing to her respiratory status. Given her overall clinical condition and obesity, I think the safest and most beneficial way to deal with this fluid collection would be a CT-guided percutaneous drain from a posterior approach to this fluid collection. Otherwise, she is afebrile and her white count has normalized over the last 2 days. I suspect most of her pulmonary symptoms are related to pneumonia and her underlying lung disease. We will follow along, but no plans for surgical intervention. cc: MD Mehdi Weston MD
[2019-03-02 04:57] LABS: ALLEN TEST YES; BE 0.9 mmoll (-3.0-3.0); BLOOD TYPE ARTERIAL; HCO3-(ACT) 25.6 mmoll (20.0-26.0); METHB 1.5 % (0.0-1.5); O2(CT) 11.9 mL/dL (15.0-23.0); PCO2(98.6) 50 mmHg (35-45); PO2(98.6) 89 mmHg (60-100); SAMPLE BLOOD; SAO2 98.6 % (95.0-100.0); THB 8.9 g/dL (11.5-17.4); pH(98.6) 7.34 (7.35-7.45)
[2019-03-02 04:58] LABS: MODALITY BI PAP
[2019-03-02] MEDS: HUMALOG SUBQ SCH ×4 (06:00→20:16)
[2019-03-02] MEDS: ZOSYN 3.375 GM in NS 50 ML IV SCH ×4 (06:00→22:28)
[2019-03-02] MEDS: PROTONIX IV SCH (06:00)
[2019-03-02] MEDS: SODIUM CHLORIDE 0.9% INJ SCH (06:00)
[2019-03-02 06:16] LABS: BASO# 0.07 X1000 (0.0-0.2); BASO% 0.6 % (0.0-0.8); EOS# 0.35 X1000 (0.0-0.7); EOS% 2.9 % (0.0-10.0); HEMATOCRIT 25.9 % (37.0-47.0); IMM GRAN# 0.03 X1000 (0.0-0.04); IMM GRAN% 0.2 % (0.0-0.5); LYMPH# 1.97 X1000 (1.2-3.4); LYMPH% 16.2 % (20.5-51.1); MCH 24.8 PG (27-31); MCHC 30.9 g/dL (33-37); MCV 80.2 FL (81-99); MONO# 1.17 X1000 (0.11-0.59); MONO% 9.6 % (1.7-9.3); NEUT# 8.57 X1000 (1.4-6.5); NEUT% 70.5 % (42.2-75.2); PLT 385 X1000 (130-400); RBC 3.23 XMIL (4.2-5.4); RDW 18.9 % (11.5-14.5); WBC 12.16 X1000 (4.8-10.8)
--- NOTE | 2019-03-02 06:32 | Diag Imaging Result Doc PS360 ---
EXAM: CHEST-PORTABLE HISTORY: dyspnea TECHNIQUE: Single view COMPARISON: 03/01/2019 FINDINGS: There is a small to moderate-sized left pleural effusion with a small right pleural effusion. There is basilar atelectasis and there may be underlying infiltrates. There is also mild pulmonary edema and cardiomegaly. IMPRESSION: No interval improvement Electronically signed by Gildardo Chávez 03/02/2019 6:29 AM
[2019-03-02 06:36] LABS: ESTIMATED GFR 27
[2019-03-02 06:44] LABS: AGAP 12; ALB/GLOB RATIO 0.7; ALBUMIN 2.4 g/dL (3.5-5.0); ALKALINE PHOSPHATASE 102 U/L (32-104); BUN 54 mg/dL (8-22); CALCIUM 8.5 mg/dL (8.8-10.2); CHLORIDE 106 mmol/L (98-107); COSMO 299; CREATININE 1.8 mg/dL (0.5-0.9); GLUCOSE 124 mg/dL (70-104); GOT 14 U/L (10-30); GPT < 5 U/L (10-36); MAGNESIUM 1.8 mg/dL (1.5-2.7); PHOSPHORUS 3.1 mg/dL (2.7-4.5); POTASSIUM 3.3 mmol/L (3.5-5.1); SODIUM 142 mmol/L (136-145); TCO2 24 mmol/L (25-35); TOTAL BILIRUBIN 0.56 mg/dL (0.20-1.00); TOTAL PROTEIN 5.9 g/dL (6.3-8.3)
[2019-03-02] MEDS: COREG PO SCH ×2 (08:20→20:15)
[2019-03-02] MEDS: NORVASC PO SCH ×2 (08:20→20:15)
[2019-03-02] MEDS: ASPIRIN PO SCH (08:20)
[2019-03-02] MEDS: HEPARIN SUBQ SCH ×2 (08:20→20:16)
--- NOTE | 2019-03-02 09:07 | PROVIDER PROGRESS NOTE ---
Progress Note Pulmonary additional note: I have seen and examined the case, reviewed the EMR, labs, latest images and other medical teams notes. Also reviewed the SQL DATABASE ADMINISTRATOR notes and signed necessary form(s). I have noted changes in condition from yesterday. Please see also signed progress sheet. I reviewed the medications in summary list. I reviewed the orders of the patient. Acute Respiratory failure. Afib. Morbid obesity, empyema identified in the left hemithorax by thoracentesis, hypoxemic and hypercapnic respiratory failure. Surgery on board but he does not think she can tolerate chest tube placement/thoracotomy. I checked Bipap settings and titrated to patient needs per clinical protocols and watched the patient responses. Since yesterday, She is tolerating Bipap. Had recently episodes of transient Afib. Prognosis: Guarded for now. I reviewed latest notes from Lisa Dumont and [facility]. I did the evaluation exam and management on the other sheet and the FLIGHT CONTROLS ENGINEER did the scribing only. I asked staff radiographer about condition changes and if they have any needs in regard to today conditions. I spent 32 minutes in this process
--- NOTE | 2019-03-02 10:32 | PROGRESS NOTE ---
DATE: 03/02/2019 SUBJECTIVE: The patient is resting comfortably in bed. She is not complaining of pain. She is following commands. She is still using the BiPAP machine. Surgery Department and Pulmonary Department on board. We are trying to find the best way to drain the empyema. OBJECTIVE: Vital Signs: Temperature 96.3 degrees, pulse 61, respiratory rate 29, blood pressure 151/60, oxygen saturation 94% on the BiPAP machine. HEENT: Head normocephalic, no trauma. PERRLA. Neck: Supple. I do not see JVD, central trachea. Chest: Decreased breath sounds globally with bilateral rhonchi mostly on the right base and crepitus bilaterally. Cardiovascular: RRR. Abdomen: Soft, is not distended, is not painful. Extremities: There is 1+ to 2+ extremity edema, no clubbing, no cyanosis. Neurological: The patient is awake. She is following commands. She is able to say her name. LABORATORY: WBC 12, hemoglobin 8, hematocrit 25.9, platelets 385,000. Sodium 142, potassium 3.3, chloride 106, bicarbonate 24, BUN 54, creatinine 1.8, glucose 124, calcium 8.5, phosphorus 3.1, magnesium 1.8, Albumin 2.4. ASSESSMENT AND PLAN: 1. Sepsis, complicated with altered mental status, Bacteroides fragilis bacteremia and Escherichia coli urinary tract infection. Leukocyte count increased a little bit compared with yesterday from 9 to 12. Infectious Disease Department on board as well as Surgery and Pulmonary Department. 2. Altered mental status, this seems to be better. She is really tired, but she is answering and following commands. 3. Possible empyema, mostly on the left side, CT scan showed a loculated effusion. Surgery Department already evaluated this patient and recommended a CT guided biopsy, the stock patcher has recommended chest tube placement. We will need to find out the best way to help this patient. 4. Acute hypoxemic and hypercarbic respiratory failure. Continue with the BiPAP machine and breathing treatment. 5. Cholelithiasis with no signs of cholecystitis. 6. Large left pleural effusion status post thoracentesis where 350 mL of fluid has been removed. 7. Transient atrial fibrillation with rapid ventricular response, likely due to sepsis, cardiology already evaluated this patient. 8. Acute kidney injury. BUN and creatinine seems to be about the same compared with yesterday. Stable urine output. Negative balance in general. 9. Hypertension. We will monitor for now. 10. Fluid overload. Continue with same management. I do not think she is eating or drinking too much, urine output has been stable for a couple days. 11. Anemia. Hemoglobin improved from 7.6 to 8. We will monitor. 12. Physical deconditioning. I already requested physical therapy to do some range of motion in bed. DISPOSITION: This patient is remarkably sick. We will we will need to remove the fluid collection on the left side of the lung with either CT-guided biopsy or chest tube. Pulmonary Department and Surgery Department on board. I will wait for their recommendations. cc: MD Mehdi Sepulveda MD
[2019-03-02] MEDS: XOPENEX NEB INH SCH ×3 (11:00→23:10)
--- NOTE | 2019-03-02 15:58 | INFECTIOUS DISEASE PROGRESS NO ---
DATE: 03/02/2019 PRESENT ILLNESS: The patient has an Escherichia coli urinary tract infection and a Bacteroides fragilis bacteremia, pneumonia, and left empyema. MEDICATIONS: This is the 7th day of treatment with IV Zosyn. PHYSICAL EXAMINATION: Vital Signs: Temperature is 96.3 degrees, pulse 61, respirations 29, blood pressure 151/60. General: This is an obese, elderly female. She is in no acute distress at this time. Head/eyes/ears/nose/throat: She can hear my spoken words and she can see near objects. I did not notice any white patches on her tongue. Neck: She does not have any pain when she moves her neck. Lungs: The lungs diminished breath sounds bilaterally. Cardiovascular: Heart rate is irregular. Abdomen: Soft and not tender. The patient has an IV catheter site in the right groin. The site is not erythematous or bleeding. Neurologic: The patient is awake. She can move her extremities. She does not have a tremor. LAB AND X-RAY: Chest x-ray shows bilateral pulmonary effusions and pulmonary edema. The patient's CBC shows the white count has increased to 12,160, hemoglobin is 8, platelet count is 385,000. Arterial blood gases show a pH of 7.34, a PO2 of 89, and a pCO2 of 50. Creatinine is 1.8. GFR is 27. ASSESSMENT AND PLAN: The patient has a urinary tract infection, bacteremia, pneumonia and empyema. My plan is to continue Zosyn as a single agent. Hopefully, the patient's white blood cell count will not continue to increase, but if it does, I will repeat cultures and most likely I will start an antibiotic to cover methicillin resistant Staphylococcus aureus, such as Zyvox. COMORBIDITIES: The patient is elderly and she is morbidly obese. She has sleep apnea, gastroesophageal reflux disease, diabetes mellitus, chronic obstructive pulmonary disease, and in the past, the patient was a cigarette smoker, but she has not smoked in years. cc: MD Mehdi Sherwood MD
--- NOTE | 2019-03-02 22:26 | GENERAL SURGERY PROGRESS NOTE ---
DATE: 03/02/2019 SUBJECTIVE: Clinically about the same. White count remains about the same. She is on BiPAP. I reviewed her x-rays. They appear, for the most part, stable. ASSESSMENT AND PLAN: This is an 83-year-old female with loculated left pleural effusion that is relatively small. It was consistent with an empyema. If she fails to improve clinically, I would recommend a CT-guided percutaneous drainage of this as she would be very high risk with a very grim prognosis for any video-assisted drainage in the operating room. A bedside chest tube would be of no benefit, given her habitus and the posterior and loculated nature of the collection. We will follow along. cc: MD Mehdi Weston MD
[2019-03-03 04:34] LABS: ALLEN TEST YES; BE 2.1 mmoll (-3.0-3.0); BLOOD TYPE ARTERIAL; HCO3-(ACT) 26.5 mmoll (20.0-26.0); METHB 1.2 % (0.0-1.5); O2(CT) 8.9 mL/dL (15.0-23.0); O2HB 93.4 % (95.0-99.0); PO2(98.6) 71 mmHg (60-100); SAMPLE BLOOD; SAO2 98.1 % (95.0-100.0); SRATE 10 BPM; THB 6.7 g/dL (11.5-17.4); pH(98.6) 7.34 (7.35-7.45)
[2019-03-03 04:36] LABS: MODALITY BI PAP; PCO2(98.6) 52 mmHg (35-45)
[2019-03-03] MEDS: ZOSYN 3.375 GM in NS 50 ML IV SCH ×4 (04:42→23:13)
[2019-03-03 04:46] LABS: BASO# 0.07 X1000 (0.0-0.2); BASO% 0.7 % (0.0-0.8); EOS# 0.38 X1000 (0.0-0.7); EOS% 3.6 % (0.0-10.0); HEMATOCRIT 23.3 % (37.0-47.0); HEMOGLOBIN 7.2 g/dL (12.0-16.0); IMM GRAN# 0.03 X1000 (0.0-0.04); IMM GRAN% 0.3 % (0.0-0.5); LYMPH# 2.31 X1000 (1.2-3.4); LYMPH% 21.6 % (20.5-51.1); MCH 24.9 PG (27-31); MCHC 30.9 g/dL (33-37); MCV 80.6 FL (81-99); MONO# 1.14 X1000 (0.11-0.59); MONO% 10.7 % (1.7-9.3); MPV 12.6 FL (7.4-10.4); NEUT# 6.74 X1000 (1.4-6.5); NEUT% 63.1 % (42.2-75.2); PLT 370 X1000 (130-400); RBC 2.89 XMIL (4.2-5.4); RDW 18.8 % (11.5-14.5); WBC 10.67 X1000 (4.8-10.8)
[2019-03-03 05:15] LABS: ALB/GLOB RATIO 0.7; ALBUMIN 2.3 g/dL (3.5-5.0); CALCIUM 8.2 mg/dL (8.8-10.2); CREATININE 1.7 mg/dL (0.5-0.9); MAGNESIUM 1.7 mg/dL (1.5-2.7); TOTAL BILIRUBIN 0.51 mg/dL (0.20-1.00); TOTAL PROTEIN 5.7 g/dL (6.3-8.3)
[2019-03-03] MEDS: PROTONIX IV SCH (06:45)
[2019-03-03] MEDS: HUMALOG SUBQ SCH ×4 (07:09→20:44)
[2019-03-03] MEDS: POTASSIUM CHLORIDE 20 MEQ/SWI 20 MEQ/100 ML IVPB IV SCH ×2 (07:33→09:26)
[2019-03-03] MEDS: NORVASC PO SCH ×2 (09:23→20:44)
[2019-03-03] MEDS: COREG PO SCH ×2 (09:23→20:44)
[2019-03-03] MEDS: ASPIRIN PO SCH (09:23)
[2019-03-03] MEDS: HEPARIN SUBQ SCH ×2 (09:26→20:43)
[2019-03-03] MEDS: XOPENEX NEB INH SCH ×3 (09:41→23:10)
[2019-03-03] MEDS: NS NEB INH SCH ×2 (09:42→15:58)
--- NOTE | 2019-03-03 11:14 | PROGRESS NOTE ---
DATE: 03/03/2019 SUBJECTIVE: No big changes compared with yesterday. This patient is still in bed. She is not complaining of pain today. She is following commands. She is still on the BiPAP machine. Surgery Department and Pulmonary Department on board. Basically we are trying to find the best way to drain the empyema. Surgery Department has recommended a CT-guided biopsy. I will wait for the final recommendation of Pulmonary Department. OBJECTIVE: Vital Signs: Temperature 97.1 degrees, pulse 55, respiratory rate 26, blood pressure 146/47, oxygen saturation 93 on the BiPAP machine. HEENT: Head normocephalic, no trauma. PERRLA. Neck: Supple. I do not see JVD. Central trachea. Chest: Decreased breath sounds globally with bilateral rhonchi, mostly on the right side, and crepitus bilaterally. Cardiovascular: RRR. Abdomen: Soft. It is not distended. It is not painful. Extremities: 1+ to 2+ lower extremity edema. No clubbing. No cyanosis. Neurological examination: The patient is awake. She is following commands. She is able to say her name, but is hard to understand what she says due to the BiPAP machine. LABORATORY: WBC 10.6, hemoglobin 7.2, hematocrit 23.3, platelets 370. Sodium 142, potassium 3, chloride 106, bicarbonate 24. BUN 52, creatinine 1.7, glucose 100, calcium 8.2, albumin 2.3. ASSESSMENT AND PLAN: 1. Sepsis, complicated with altered mental status, Bacteroides fragilis bacteremia and Escherichia coli urinary tract infection. Leukocyte count went down compared with yesterday. Infectious Disease Department on board, as well as Surgery and Pulmonary Department. 2. Altered mental status, seems to be better, but she is extremely weak. 3. Likely empyema, mostly on the left side. CT scan showed a loculated effusion. Surgery Department has recommended CT-guided biopsy, I will wait for the final pulmonology recommendation regarding to this to find the best way to drain the empyema. 4. Acute hypoxemic and hypercarbic respiratory failure. For now, we will continue with the BiPAP machine and breathing treatment. 5. Cholelithiasis with no signs of cholecystitis. 6. Large left pleural effusion status post thoracentesis where 350 mL of fluid has been removed. 7. Transient atrial fibrillation with rapid ventricular response, likely due to sepsis. Cardiology already evaluated this patient. This is better. 8. Acute kidney injury. BUN and creatinine seems to be stable for the past few days. Her urine output is around 1 liter in the past 24 hours. 9. Anemia. I will monitor this closely. The hemoglobin dropped to 7.2. I will ask for a new hemoglobin and hematocrit in the afternoon to see how she is. I will transfuse as needed. 10. Fluid overload. Continue with same management. I do not think she is eating or drinking too much. 11. Hypertension, stable. 12. Physical deconditioning. I already requested physical therapy to do some range of motion in bed. DISPOSITION: This patient is still remarkably sick. We will need to continue with the same management. I will wait for the final recommendations of Pulmonary Department regarding CT-guided biopsy and/or chest tube, but it looks like Surgery Department prefers CT-guided biopsy on this patient. Her prognosis is guarded. cc: MD Mehdi Sepulveda MD
--- NOTE | 2019-03-03 12:18 | PROVIDER PROGRESS NOTE ---
Progress Note Pulmonary additional note: I have seen and examined the case, reviewed the EMR, labs, latest images and other medical teams notes. Also reviewed the TRIMMING MACHINE SET UP OPERATOR notes and signed necessary form(s). I have noted changes in condition from yesterday. Please see also signed progress sheet. I reviewed the medications in summary list. I reviewed the orders of the patient. Acute Respiratory failure. Afib. Morbid obesity, empyema identified in the left hemithorax by thoracentesis, hypoxemic and hypercapnic respiratory failure. Surgery on board but he does not think she can tolerate chest tube placement/thoracotomy. I checked Bipap and high flow cannula settings and titrated to patient needs per clinical protocols and watched the patient responses. Since yesterday, I ordered CXR daily. She is tolerating Bipap alternating with high flow cannula. Had recently episodes of transient Afib. Prognosis: Guarded for now. I reviewed latest notes from Dr. Presley, and Dr Gonzalez. Will follow the surgical team recommendations lead. I did the evaluation exam and management on the other sheet and the LOGISTICS COORDINATOR did the scribing only. I asked staffing account manager about condition changes and if they have any needs in regard to today conditions. I spent 34 minutes in this process
[2019-03-04] MEDS: ZOSYN 3.375 GM in NS 50 ML IV SCH ×4 (05:14→23:26)
[2019-03-04] MEDS: PROTONIX IV SCH (06:19)
[2019-03-04] MEDS: HUMALOG SUBQ SCH ×4 (06:20→20:16)
[2019-03-04 06:32] LABS: BASO# 0.06 X1000 (0.0-0.2); BASO% 0.6 % (0.0-0.8); EOS% 4.1 % (0.0-10.0); HEMATOCRIT 24.3 % (37.0-47.0); HEMOGLOBIN 7.4 g/dL (12.0-16.0); IMM GRAN# 0.03 X1000 (0.0-0.04); IMM GRAN% 0.3 % (0.0-0.5); LYMPH# 1.87 X1000 (1.2-3.4); LYMPH% 19.2 % (20.5-51.1); MCH 24.9 PG (27-31); MCHC 30.5 g/dL (33-37); MCV 81.8 FL (81-99); MONO# 1.08 X1000 (0.11-0.59); MONO% 11.1 % (1.7-9.3); MPV 12.8 FL (7.4-10.4); NEUT# 6.29 X1000 (1.4-6.5); NEUT% 64.7 % (42.2-75.2); PLT 395 X1000 (130-400); RBC 2.97 XMIL (4.2-5.4); RDW 19.7 % (11.5-14.5); WBC 9.73 X1000 (4.8-10.8)
[2019-03-04 07:18] LABS: EOS 2 % (1-10); LYMPHS 22 % (21-51); MONO 12 % (1-9); SEGS 62 % (42-75)
[2019-03-04 07:32] LABS: ALB/GLOB RATIO 0.6; ALBUMIN 2.3 g/dL (3.5-5.0); CALCIUM 8.4 mg/dL (8.8-10.2); CREATININE 1.6 mg/dL (0.5-0.9); MAGNESIUM 1.8 mg/dL (1.5-2.7); PHOSPHORUS 3.3 mg/dL (2.7-4.5); POTASSIUM 3.7 mmol/L (3.5-5.1); TOTAL BILIRUBIN 0.44 mg/dL (0.20-1.00); TOTAL PROTEIN 5.9 g/dL (6.3-8.3)
--- NOTE | 2019-03-04 07:33 | Diag Imaging Result Doc PS360 ---
CHEST-1 VIEW - 03/04/2019 INDICATION: SOB COMPARISON: 03/02/2019 FINDINGS: Stable moderate opacification at the left lung base consistent with consolidation and/or small to moderate pleural effusion. Stable small to moderate right pleural effusion as well. Stable cardiomegaly and pulmonary vascular congestion. No new infiltrates. IMPRESSION: No change from prior. Electronically signed by Cristiano Lynn 03/04/2019 7:30 AM
[2019-03-04] MEDS: ASPIRIN PO SCH (08:14)
[2019-03-04] MEDS: COREG PO SCH ×2 (08:14→20:14)
[2019-03-04] MEDS: HEPARIN SUBQ SCH ×2 (08:14→20:13)
[2019-03-04] MEDS: NORVASC PO SCH ×2 (08:14→20:14)
--- NOTE | 2019-03-04 08:18 | PROGRESS NOTE ---
DATE: 03/04/2019 SUBJECTIVE: No big changes compared with yesterday. This patient is still in bed. She is still on the BiPAP machine. I will order a CT guided drainage of the fluid collection on the left lung as suggested by Surgery Department. Case has been discussed also with Dr. Acosta. Kidney function seems to be getting better. BUN and creatinine trending down. Urine output has been stable. PHYSICAL EXAMINATION: Vital Signs: Temperature 98.2 degrees, pulse 53, respiratory rate 18, blood pressure 127/48, oxygen saturation 96 on a high-flow nasal cannula. HEENT: Head normocephalic. No trauma. PERRLA. Neck: Supple. I do not see JVD. Central trachea. Chest: Decreased breath sounds globally with bilateral rhonchi mostly on the right side and crepitus bilaterally. Cardiovascular: Regular rate and rhythm, bradycardic. Abdomen: Soft, it is not distended. Positive bowel sounds. Extremities: 1 to 2+ lower extremity edema. No clubbing. No cyanosis. Neurological: The patient is awake. She is following commands. She is able to say her name. She is oriented to time and place as well. LABORATORY DATA: WBC 9.7, hemoglobin 7.4, hematocrit 24.3, platelets 395,000. Sodium 138, potassium 3.7, chloride 102, bicarbonate 25, BUN 48, creatinine 1.6, glucose 119, calcium 8.4, albumin 2.3. ASSESSMENT AND PLAN: 1. Sepsis complicated with altered mental status, Bacteroides fragilis bacteremia and Escherichia coli urinary tract infection. Leukocyte count stable. Infectious Disease on board. Continue with antibiotics. 2. Altered mental status, better. 3. Empyema, mostly on the left side as seen on the CT scan. CT scan showed a loculated effusion. Surgery department has recommended CT guided drainage of these effusions, so I will put the order for that. The patient understands and she agreed with that. 4. Acute hypoxemic and hypercarbic respiratory failure. For now, we will continue with the BiPAP machine and high-flow nasal cannula if the patient tolerates. 5. Cholelithiasis with no signs of cholecystitis. 6. Large left pleural effusion status post thoracentesis where 350 mL of fluid has been removed. 7. Transient atrial fibrillation with rapid ventricular response, likely due to sepsis, resolved. 8. Acute kidney injury. BUN and creatinine seems to be more stable. Urine output has been stable as well. I will just monitor. 9. Anemia. We will monitor this closely. The hemoglobin increased from 72 to 7.4. I will transfuse as needed. 10. Fluid overload. Continue with same management. I do not think she is eating or drinking too much and she is having stable urine output. 11. Hypertension, stable. 12. Physical deconditioning. Continue physical therapy and occupational therapy as directed. 13. Disposition. This patient is still remarkably sick. We are going to try to remove that empyema from the left lung tomorrow through a CT-guided drainage. Case has been discussed with Pulmonary department yesterday and they agree with that. CRITICAL CARE TIME: 35 minutes. cc: MD Mehdi Sepulveda MD
--- NOTE | 2019-03-04 09:17 | PROVIDER PROGRESS NOTE ---
Progress Note Pulmonary additional note: I have seen and examined the case, reviewed the EMR, labs, latest images and other medical teams notes. Also reviewed the CERTIFIED MASTER SAFECRACKER notes and signed necessary form(s). I have noted changes in condition from yesterday. Please see also signed progress sheet. I reviewed the medications in summary list. I reviewed the orders of the patient. Acute Respiratory failure. Afib. Morbid obesity, empyema identified in the left hemithorax by thoracentesis, hypoxemic and hypercapnic respiratory failure. Surgery on board but he does not think she can tolerate chest tube placement/thoracotomy. I checked Bipap and high flow cannula settings and titrated to patient needs per clinical protocols and watched the patient responses. Since yesterday, I remains alternating on Bipap and high flow cannula. I discussed the case with Dr. Presley and CT drainage was ordered. Prognosis: Guarded for now. I reviewed latest notes from Dr. Presley, and Dr Gonzalez. Will follow the surgical team recommendations lead. CT drainage was ordered. I did the evaluation exam and management on the other sheet and the RED CROSS EXECUTIVE DIRECTOR did the scribing only. I asked medical staff manager about condition changes and if they have any needs in regard to today conditions. I spent 30 minutes in this process
--- NOTE | 2019-03-04 09:20 | INFECTIOUS DISEASE PROGRESS NO ---
DATE: 03/04/2019 PRESENT ILLNESS: The patient has an Escherichia coli urinary tract infection and a Bacteroides fragilis bacteremia, pneumonia, and left-sided empyema. MEDICATIONS: This is day 9 of Zosyn being used with day 1 being the first day that the patient's repeat blood cultures were sterile. PHYSICAL EXAMINATION: Vital Signs: Temperature is 98.2 degrees, pulse 53, respirations 18, blood pressure 127/48. General: This is an obese, elderly female. She is on a BiPAP mask. Head, Eyes, Ears, Nose, and Throat: No drainage from the nose or ears. I did not notice any white coating of her tongue. The patient is wearing a BiPAP mask. Neck: No pain with movement of the neck. Lungs: Lungs have diminished breath sounds bilaterally in the bases. In the upper parts of the lungs, the lungs were clear. Cardiovascular: Heart rate is irregular. Abdomen: Soft and not tender. The patient, in the right groin area, has an IV catheter in place. The catheter site is not purulent or bleeding. Neurologic: The patient is awake. She can move her extremities. She does not have a tremor. LAB AND X-RAY: Chest x-ray shows pulmonary venous congestion. CBC shows a white count of 9730, hemoglobin 7.4, platelet count 395,000. Creatinine is 1.6. GFR is 31. The urine grew Escherichia coli. The blood culture grew Bacteroides. Chest x-ray shows pulmonary venous congestion. ASSESSMENT AND PLAN: I am going to continue Zosyn for the patient's Escherichia coli urinary tract infection and her Bacteroides fragilis bacteremia, pneumonia, and left empyema. COMORBIDITIES: The patient is elderly and obese. She has sleep apnea, gastroesophageal reflux disease, diabetes mellitus, chronic obstructive pulmonary disease, and in the past, the patient was a cigarette smoker but she has not smoked in years. cc: MD Mehdi Sherwood MD
[2019-03-04] MEDS: XOPENEX NEB INH SCH ×3 (11:33→23:40)
[2019-03-04] MEDS: NS NEB INH SCH ×2 (11:33→15:41)
[2019-03-05 04:45] LABS: ALLEN TEST YES; BE 1.5 mmoll (-3.0-3.0); BLOOD TYPE ARTERIAL; HCO3-(ACT) 26.1 mmoll (20.0-26.0); METHB 0.5 % (0.0-1.5); O2(CT) 9.5 mL/dL (15.0-23.0); O2HB 97.2 % (95.0-99.0); PCO2(98.6) 44 mmHg (35-45); PO2(98.6) 139 mmHg (60-100); SAMPLE BLOOD; SAO2 100.1 % (95.0-100.0); THB 6.7 g/dL (11.5-17.4); pH(98.6) 7.39 (7.35-7.45)
[2019-03-05 04:47] LABS: MODALITY BI PAP
[2019-03-05] MEDS: ZOSYN 3.375 GM in NS 50 ML IV SCH ×4 (05:20→23:41)
[2019-03-05] MEDS: PROTONIX IV SCH ×2 (05:20→06:16)
[2019-03-05] MEDS: HUMALOG SUBQ SCH ×4 (06:16→20:17)
[2019-03-05 06:47] LABS: BASO# 0.13 X1000 (0.0-0.2); BASO% 1.1 % (0.0-0.8); EOS# 0.44 X1000 (0.0-0.7); EOS% 3.9 % (0.0-10.0); HEMATOCRIT 21.3 % (37.0-47.0); HEMOGLOBIN 6.5 g/dL (12.0-16.0); IMM GRAN# 0.05 X1000 (0.0-0.04); IMM GRAN% 0.4 % (0.0-0.5); LYMPH# 2.48 X1000 (1.2-3.4); LYMPH% 21.7 % (20.5-51.1); MCH 25.2 PG (27-31); MCHC 30.5 g/dL (33-37); MCV 82.6 FL (81-99); MONO# 1.44 X1000 (0.11-0.59); MONO% 12.6 % (1.7-9.3); MPV 13.2 FL (7.4-10.4); NEUT# 6.87 X1000 (1.4-6.5); NEUT% 60.3 % (42.2-75.2); PLT 403 X1000 (130-400); RBC 2.58 XMIL (4.2-5.4); RDW 20.3 % (11.5-14.5); WBC 11.41 X1000 (4.8-10.8)
[2019-03-05] MEDS ORDERED: NS 500 ML IV ONE (07:08)
[2019-03-05 07:41] LABS: CALCIUM 8.8 mg/dL (8.8-10.2); CREATININE 1.8 mg/dL (0.5-0.9); POTASSIUM 3.7 mmol/L (3.5-5.1)
[2019-03-05] MEDS: NORVASC PO SCH ×2 (08:22→20:16)
[2019-03-05] MEDS: COREG PO SCH ×2 (08:22→20:17)
[2019-03-05] MEDS: ASPIRIN PO SCH (08:22)
[2019-03-05] MEDS: HEPARIN SUBQ SCH ×2 (08:28→20:17)
--- NOTE | 2019-03-05 08:57 | Diag Imaging Result Doc PS360 ---
EXAM: CHEST-1 VIEW 03/05/2019 HISTORY: SOB TECHNIQUE: AP portable at 0540 COMMENT: There are bilateral pleural effusions. There is cardiomegaly. There is interstitial pulmonary edema. The retrocardiac region is opacified. Compared to 03/04/2019 this has not changed. IMPRESSION: Pulmonary edema and pleural effusions. Atelectasis versus pneumonia left lower lobe. Electronically signed by Justin Richards 03/05/2019 8:54 AM
--- NOTE | 2019-03-05 09:00 | PROGRESS NOTE ---
DATE: 03/05/2019 SUBJECTIVE: No big changes compared with yesterday. This patient is feeling bad. She is still using the BiPAP machine. A CT-guided drainage of the fluid collection of the left lung has been ordered and suggested by Surgery Department. Case has been discussed also with Pulmonary Department. Today, I talked to Dr. Richards about the procedure. He will communicate with the surgeon, Dr. Gonzalez, so we can be on the same page and get the best option for this patient. On the other hand, this patient is anemic. The hemoglobin dropped to 6.5. I will give her a unit of blood. OBJECTIVE: Vital Signs: Temperature 97.8 degrees, pulse 54, respiratory rate 24, blood pressure 139/49, oxygen saturation 93 on the BiPAP machine. HEENT: Head normocephalic. No trauma. PERRLA. Neck: Supple. I do not see JVD. Central trachea. Chest: Decreased breath sounds globally with bilateral rhonchi, mostly on the left side, with some crepitus bilaterally. Cardiovascular: RRR. Slightly bradycardic. Abdomen: Soft, nondistended. Positive bowel sounds. Extremities: There is 1+ to 2+ lower extremity edema. No clubbing. No cyanosis. Neurological: The patient is awake. She is following commands. She is able to answer questions. LABORATORY DATA: WBC 11.4, hemoglobin 6.5, hematocrit 21.3, platelets 403,000. Sodium 141, potassium 3.7, chloride 104, bicarbonate 24, BUN 48, creatinine 1.8, glucose 109, calcium 8.8. ASSESSMENT AND PLAN: 1. Sepsis complicated with altered mental status, Bacteroides fragilis bacteremia, and Escherichia coli urinary tract infection. Leukocyte count increased a little bit compared with yesterday. Infectious Disease on board. Continue with antibiotics. 2. Altered mental status, better. 3. Empyema, mostly on the left side, seen on the CT scan. CT showed a loculated effusion. Surgery department has recommended CT-guided drainage of this effusion. I have placed the order for that. The patient understood the necessity of the procedure, and agreed with that. I also communicated with her daughter yesterday about the procedure. I had a conversation with the radiologist today, Dr. Richards, and he will communicate with Surgery Department, Dr. Gonzalez, to discuss about the best option to drain this for this patient, so we can be on the same page. 4. Acute hypoxemic and hypercarbic respiratory failure. For now, will continue with the bilevel positive airway pressure machine and/or high-flow nasal cannula if the patient tolerates. 5. Cholecystitis with no signs of cholecystitis. Aware. 6. Large left pleural effusion, status post thoracentesis, where 350 mL of fluid has been removed. This patient has an empyema on the left side as well that we are planning to remove. 7. Transient atrial fibrillation with rapid ventricular response, likely due to sepsis. Resolved. 8. Acute kidney injury. BUN and creatinine seem to be stable. Urine output is marginal. 9. Anemia. I will give her a unit of blood. Her hemoglobin today 6.5. 10. Fluid overload. Continue with same management. I will monitor for now. 11. Hypertension, stable. 12. Physical deconditioning. Continue physical therapy and occupational therapy. 13. Disposition. This patient is still remarkably sick. We are going to try to remove the empyema from the left lung, hopefully today. Case has been discussed with Pulmonary Department, and today I also discussed briefly the case with Radiology Department. CRITICAL CARE TIME: 35 minutes. cc: MD Mehdi Sepulveda MD
[2019-03-05] MEDS: XOPENEX NEB INH SCH ×3 (10:19→23:20)
--- NOTE | 2019-03-05 13:44 | INFECTIOUS DISEASE PROGRESS NO ---
DATE: 03/05/2019 PRESENT ILLNESS: The patient has an Escherichia coli urinary tract infection and a Bacteroides fragilis bacteremia, pneumonia, and left-sided empyema. MEDICATIONS: This is day 6 of treatment with Zosyn. PHYSICAL EXAMINATION: Vital Signs: Temperature is 97.5 degrees, pulse 55, respirations 17, blood pressure 135/51. General: This is an obese, elderly female. She no longer is wearing a BiPAP mask. She just has a regular oxygen mask on. Head/eyes/ears/nose/throat: She can hear my spoken words and see near objects. I did not see any white patches in her mouth. Neck: No pain with movement. Lungs: Have diminished breath sound in the bases. I did not hear any rales. Cardiovascular: Heart rate is regular today. Abdomen: Soft and nontender. In the right groin area the patient has an IV catheter. The site is not purulent or bleeding. Neurologic: The patient is awake. She can move her extremities. She does not have a tremor. LAB AND X-RAY: Chest x-ray shows pulmonary edema, pleural effusion, and left lower lobe pneumonia versus atelectasis. ASSESSMENT AND PLAN: The patient has a urinary tract infection, a bacteremia, pneumonia, and an empyema. For now, I am going to continue Zosyn. COMORBIDITIES: The patient is elderly and obese. She has sleep apnea, gastroesophageal reflux disease, diabetes mellitus, chronic obstructive pulmonary disease, and the patient was a cigarette smoker but she has not smoked for years. cc: MD Mehdi Sherwood MD
--- NOTE | 2019-03-05 14:31 | GENERAL SURGERY PROGRESS NOTE ---
DATE: 03/05/2019 SUBJECTIVE: I talked to Dr. Richards this morning about percutaneous drain. He is evaluating the case. Otherwise she is on Ventimask with stable shortness of breath. White count remains low at 11. Creatinine is 1.8. It has been about stable. I reviewed her chest x-ray. No significant change. ASSESSMENT/PLAN: 83-year-old female with empyema of the left chest. I do not think she is a surgical drainage candidate. I do think percutaneous CT guided drain is reasonable from posterior approach and I have talked to Dr. Richards personally about this. Will follow along. cc: MD Mehdi Weston MD
--- NOTE | 2019-03-05 22:04 | PULMONOLOGY PROGRESS NOTE ---
DATE: 03/05/2019 SUBJECTIVE: The patient is awake and alert. She reports her nose is hurting due to the pressure of the mask. OBJECTIVE: Vital Signs: The patient has been afebrile for the last 24 hours. Blood pressure 143/55, heart rate 57, respiratory rate 23, oxygen saturation 95% on BiPAP. HEENT: Pupils are equal and reactive. Oropharynx appears clear. Neck: Supple. Chest: Reveals diminished breath sounds bilaterally. Cardiac exam: S1 and S2. Abdomen: Obese and soft. Extremities: Reveal trace edema. LABORATORIES: Microbiology reveals no new data. Pleural culture revealed no growth. White blood count 11.41, hemoglobin 6.5, platelet count 403,000. Arterial blood gas reveals pH 7.39, pCO2 44, pO2 of 139. IMPRESSION: An 83-year-old with: 1. Empyema by thoracentesis data with negative cultures. 2. Morbid obesity. 3. Acute hypoxemic and acute hypercapnic respiratory failure. 4. Chronic renal failure. 5. Diastolic heart failure. DISCUSSION: An 83-year-old with problems outlined above. She is currently being considered for a CT-guided drainage, although a specific pleural fluid pocket not easily identified. She may or may not drain with a small bore tube given the inflammatory nature of the fluid, but she is not a candidate for thoracoscopy and chest tube placement per General Surgery. PLAN: 1. Agree with blood transfusions today. Her hemoglobin level is less than 7. 2. Attempt a trial on a Ventimask. 3. Continue antibiotics per Infectious Disease. 4. Anticipate attempt at CT-guided drainage. cc: MD Mehdi Dietrich MD
[2019-03-06] MEDS: PROTONIX IV SCH ×2 (05:17→07:26)
[2019-03-06] MEDS: ZOSYN 3.375 GM in NS 50 ML IV SCH ×3 (05:17→19:49)
[2019-03-06] MEDS: HUMALOG SUBQ SCH ×4 (06:06→20:19)
[2019-03-06 06:27] LABS: BASO# 0.08 X1000 (0.0-0.2); BASO% 0.6 % (0.0-0.8); HEMATOCRIT 23.4 % (37.0-47.0); HEMOGLOBIN 7.1 g/dL (12.0-16.0); IMM GRAN# 0.12 X1000 (0.0-0.04); IMM GRAN% 0.9 % (0.0-0.5); LYMPH# 2.44 X1000 (1.2-3.4); LYMPH% 18.2 % (20.5-51.1); MCH 25.7 PG (27-31); MCHC 30.3 g/dL (33-37); MCV 84.8 FL (81-99); MONO# 1.81 X1000 (0.11-0.59); MONO% 13.5 % (1.7-9.3); MPV 12.2 FL (7.4-10.4); NEUT# 8.55 X1000 (1.4-6.5); NEUT% 63.8 % (42.2-75.2); PLT 423 X1000 (130-400); RBC 2.76 XMIL (4.2-5.4)
[2019-03-06 06:53] LABS: ALB/GLOB RATIO 0.6; ALBUMIN 2.3 g/dL (3.5-5.0); CALCIUM 8.8 mg/dL (8.8-10.2); CREATININE 1.8 mg/dL (0.5-0.9); MAGNESIUM 1.9 mg/dL (1.5-2.7); PHOSPHORUS 3.9 mg/dL (2.7-4.5); POTASSIUM 3.8 mmol/L (3.5-5.1); TOTAL BILIRUBIN 0.41 mg/dL (0.20-1.00); TOTAL PROTEIN 5.9 g/dL (6.3-8.3)
[2019-03-06 07:20] LABS: EOS 3 % (1-10); LYMPHS 19 % (21-51); MONO 12 % (1-9); SEGS 66 % (42-75)
[2019-03-06 07:21] LABS: ANISOCYTOSIS 1+
--- NOTE | 2019-03-06 07:39 | Diag Imaging Result Doc PS360 ---
CHEST-1 VIEW - 03/06/2019 INDICATION: SOB COMPARISON: 03/05/2019 FINDINGS: Stable cardiomegaly. Stable diffuse pulmonary vascular congestion. Stable mild pulmonary edema. Stable small right, and moderate to large left pleural effusions. IMPRESSION: No change from prior. Electronically signed by Cristiano Lynn 03/06/2019 7:36 AM
[2019-03-06] MEDS ORDERED: NS 500 ML IV ONE (08:12)
[2019-03-06] MEDS: ASPIRIN PO SCH (08:17)
[2019-03-06] MEDS: NORVASC PO SCH ×2 (08:17→20:47)
[2019-03-06] MEDS: COREG PO SCH ×2 (08:17→20:47)
--- NOTE | 2019-03-06 09:13 | PROGRESS NOTE ---
DATE: 03/06/2019 SUBJECTIVE: Patient reports not feeling good, she reports general malaise, feeling tired. No pleuritic chest pain. Apparently the CT-guided drainage of the left empyema was not done yesterday because of anemia. We are trying to do it today. OBJECTIVE: Vital Signs: Temperature 97.8 degrees, heart rate 60, respiratory rate 20, blood pressure 133/50, O2 saturation 95% on Venturi mask. General: This is a chronically ill-looking, morbidly obese, 83-year-old female lying in bed, in no acute distress. Cardiovascular: S1, S2 heard. No murmurs, gallops, or rubs. Regular rate and rhythm. Respiratory: Decreased breath sounds globally with bilateral rhonchi and decreased breath sounds on the left side. Some crackles noted bilaterally as well but the patient is not using any accessory muscles or having work of breathing. Abdomen: Soft, a little bit distended but nontender to palpation. Bowel sounds present. No organomegaly. Extremities: 2+ pedal edema in both lower extremities. Also some edema in both upper extremities. No clubbing or cyanosis noted. Peripheral pulses present in both legs but faint. Neurological: Patient is awake, answers questions appropriately. Moves 4 extremities. LABORATORY DATA: White cell count 13.4, hemoglobin 7.1, hematocrit 23.4, platelets 423,000. No ABG from today. Renal function 1.8 with GFR of 27. ASSESSMENT AND PLAN: 1. Sepsis secondary to Bacteroides fragilis bacteremia. The patient continues to be on Zosyn, day #[address] Lj Fernandes from Infectious Disease is following this patient. We will follow recommendations. Blood cultures repeated have been negative so far. 2. Empyema on the left side on the CT scan. Plan from yesterday was to do a CT- guided drainage of that effusion but because of anemia, that procedure was postponed. Today, hemoglobin is 7.1. I am planning to provide 1 more unit of blood but I have talked with Dr. Stock from Radiology and they will do that procedure today but we need to check coagulation status first. We will do it stat. According to Dr. Gonzalez from General Surgery, she is not a candidate for any surgical procedure regarding this empyema. At this point, we will continue with the same management. 3. Acute hypoxemic, hypercarbic respiratory failure. We will continue with BiPAP. Now she is requiring Venturi mask in the morning. We will continue with the same management. 4. Cholelithiasis with no signs no signs of cholecystitis. Aware. 5. Chronic kidney disease stage III. Creatinine continues to be at baseline. We will continue to monitor. 6. Anemia of chronic disease. Patient has received 1 unit of blood and hemoglobin is 7.1 today. I think we will need to provide 1 more unit to this patient. 7. Hypertension. Blood pressure is under control. We will continue with the same management. 8. Fluid overload. We will continue with same management. 9. Physical deconditioning. Physical Therapy and Occupational Therapy working with this patient. 10. Disposition. The patient remains critically ill. We will see if we can that CT drainage of the left empyema today. cc: Dat Jennings MD MTDD
[2019-03-06] MEDS: NS NEB INH SCH ×2 (09:36→15:04)
[2019-03-06] MEDS: XOPENEX NEB INH SCH ×3 (09:36→23:35)
[2019-03-06 09:41] LABS: INR 1.12; PROTIME 14.6 Seconds (11.0-16.0)
[2019-03-06 09:42] LABS: PTT 31.9 Seconds (22.3-41.8)
--- NOTE | 2019-03-06 10:02 | INFECTIOUS DISEASE PROGRESS NO ---
DATE: 03/06/2019 PRESENT ILLNESS: The patient has an Escherichia coli urinary tract infection and a Bacteroides fragilis bacteremia, pneumonia, and left-sided empyema. MEDICATIONS: This is day 7 of treatment with Zosyn. PHYSICAL EXAMINATION: Vital Signs: Temperature is 97.7 degrees, pulse 63, respirations 21, blood pressure 128/46. General: This is an obese, elderly female. She is wearing an oxygen mask at this time. Head, Eyes, Ears, Nose, and Throat: As mentioned above, the patient is wearing an oxygen mask. There is no drainage from the nose or ears. I did not see any white patches in her mouth. Neck: No pain with movement. Lungs: Diminished basilar breath sounds bilaterally. Cardiovascular: Heart rate is regular. Abdomen: Soft and nontender. In the right groin, the patient has a triple-lumen catheter. The catheter site is not bleeding and it is not purulent. Neurologic: The patient is awake. She is able to carry on a conversation. She can move her extremities. LAB AND X-RAY: CBC today shows a white count of 13,410, hemoglobin 7.1, platelet count 423,000. Creatinine is 1.8. GFR is 27. The patient's pleural fluid cultures are negative. Chest x-ray shows bilateral pulmonary venous congestion and a large left pleural effusion. ASSESSMENT AND PLAN: The patient has an Escherichia coli urinary tract infection, a Bacteroides bacteremia, pneumonia, and empyema. I am going to continue Zosyn. Dr. Moyer is managing drainage of the empyema. COMORBIDITIES: The patient is elderly and obese. She has sleep apnea, gastroesophageal reflux disease, diabetes mellitus, chronic obstructive pulmonary disease, and the patient, for years, was a cigarette smoker but she has not smoked cigarettes recently. cc: MD Dat Sherwood MD
--- NOTE | 2019-03-06 11:27 | Diag Imaging Result Doc PS360 ---
US THORACENTESIS W/IMAGE GUIDE - 03/06/2019 INDICATION: drainage of empyema TECHNIQUE: The risks and benefits of the procedure were discussed with the patient. All questions were answered. Written and verbal informed consent was obtained. Overlying skin was prepped and draped in sterile fashion. Anesthesia was achieved with injection of 10 cc of 1% lidocaine. COMPARISON: Previous chest x-rays and CT FINDINGS: A 10.2-Maltese drainage catheter was placed into the left empyema. This was anchored with a skin anchor. About 300 cc was also removed during the procedure. IMPRESSION: Successful and uncomplicated ultrasound-guided left pleural drainage catheter placement. Electronically signed by Cristiano Lynn 03/06/2019 11:24 AM
[2019-03-06] MEDS: HEPARIN SUBQ SCH ×2 (12:55→20:47)
--- NOTE | 2019-03-06 20:46 | PULMONOLOGY PROGRESS NOTE ---
DATE: 03/06/2019 SUBJECTIVE: The patient is sleeping. She had a left chest tube placed radiographically earlier this morning. About 300 mL of fluid was drained immediately, but none since then. OBJECTIVE: General: The patient is sleeping. The patient was more awake earlier this morning. Vital signs: BP 136/51, heart rate 57, respiratory rate 26, oxygen saturation 97%. HEENT: Pupils are equal and reactive. Oropharynx appears clear. Neck: Supple. Chest: Reveals chest tube secured in the left hemithorax with dressing in place. Decreased breath sounds bilaterally. Cardiac exam: S1, S2. Abdomen: Obese and soft. Extremities: Reveal 1+ peripheral edema. LABORATORY DATA: Sodium 142, potassium 3.8, chloride 105, bicarbonate 26, BUN 49, creatinine 1.8. White blood count 13.40, hemoglobin 7.1, platelet count 423,000. RADIOLOGIC DATA: Chest x-ray reveals continued opacification at the left base. IMPRESSION: An 83-year-old with: 1. Empyema status post percutaneous catheter placement. 2. Morbid obesity. 3. Hypoxemic and hypercapnic respiratory failure. 4. Diastolic heart failure. 5. Chronic renal failure. PLAN: 1. Continue chest tube to low intermittent suction. 2. Consider adding tPA/DNase through the catheter tomorrow if she does not have significant drainage overnight. 3. Continue antibiotics. cc: MD Dat Dietrich MD
[2019-03-07] MEDS: ZOSYN 3.375 GM in NS 50 ML IV SCH ×4 (02:12→20:17)
[2019-03-07 05:18] LABS: ALLEN TEST YES; BE -2.4 mmoll (-3.0-3.0); BLOOD TYPE ARTERIAL; METHB 0.9 % (0.0-1.5); O2(CT) 12.8 mL/dL (15.0-23.0); O2HB 95.7 % (95.0-99.0); PO2(98.6) 132 mmHg (60-100); SAMPLE BLOOD; SAO2 99.8 % (95.0-100.0); THB 9.3 g/dL (11.5-17.4)
[2019-03-07 05:24] LABS: MODALITY VENTIMASK; PCO2(98.6) 67 mmHg (35-45)
[2019-03-07] MEDS: HUMALOG SUBQ SCH ×4 (06:15→20:18)
[2019-03-07] MEDS: PROTONIX IV SCH (06:16)
--- NOTE | 2019-03-07 06:29 | PROGRESS NOTE ---
DATE: 03/07/2019 SUBJECTIVE: Patient reports still feeling not good. She reported general malaise and feeling tired. Apparently, she did tolerate the procedure yesterday well. She has been confused according to nursing staff, no other issues noted. OBJECTIVE: Vital Signs: Temperature 97.6 degrees, heart rate 55, respiratory 25 and blood pressure 125/41. O2 saturation 97% on Venturi mask at 50%. General: This is a chronically ill- looking, morbidly obese 83-year-old female lying in bed in no acute distress. Cardiovascular: S1, S2 heard. No murmurs, gallops, or rubs. Regular rate and rhythm. Respiratory: Decreased breath sounds globally with bilateral rhonchi and decreased breath sounds on the left side. There is percutaneous catheter placed in the left chest to intermittent function connected. Abdomen: Soft. A little bit distended but nontender to palpation. Bowel sounds present. No organomegaly. Extremities: There is still 2+ pitting edema in both lower extremities. Some edema in both upper extremities as well but no clubbing or cyanosis noted. Peripheral pulses present in both legs but faint. Neurological: The patient is a little bit confused this morning, but answered questions appropriately. LABORATORY DATA: Pending at time of dictation. ASSESSMENT AND PLAN: 1. Sepsis secondary to bacterial use fragilis bacteremia. Patient is on Zosyn day #9 of treatment. We do not have the results of the CBC but patient is not spiking any fever. Dr. Fernandes from Infectious Disease is following this patient for recommendation. Cultures repeated did not show any remaining infection. We will continue to monitor. 2. Empyema on the left side status post percutaneous catheter placement to low intermittent suction. At the time of the procedure, it was possible to remove 300 mL of bloody drainage but according to nursing staff since then there was not good drainage amount. At this point, probably we will need to use thrombolytics to help with this drainage. We will continue to monitor. Pulmonary and General Surgery following this patient. Follow recommendations. 3. Acute hypoxemic hypercarbic respiratory failure. Patient continues to require Venturi mask. We will continue to monitor. 4. Cholelithiasis with no signs of cholecystitis. Aware. 5. Chronic kidney disease stage 3. Creatinine continues to be at baseline. We will continue to monitor. 6. Anemia of chronic disease. Patient has received a total of 2 units of blood over the last couple of days. Hemoglobin is still pending this morning. We will continue to monitor. 7. Hypertension. Blood pressure is under control. We will continue with the same management. 8. Fluid overload. We will continue with the same management. 9. Physical deconditioning. Physical Therapy and Occupational Therapy working with this patient. 10. Disposition. This patient continues to be critically ill. He has been 20 days here in the hospital. We will continue to monitor. cc: Dat Jennings MD
[2019-03-07 06:33] LABS: BASO# 0.13 X1000 (0.0-0.2); BASO% 1.1 % (0.0-0.8); EOS# 0.28 X1000 (0.0-0.7); EOS% 2.3 % (0.0-10.0); HEMATOCRIT 25.3 % (37.0-47.0); HEMOGLOBIN 7.4 g/dL (12.0-16.0); IMM GRAN% 1.6 % (0.0-0.5); LYMPH# 2.67 X1000 (1.2-3.4); LYMPH% 21.8 % (20.5-51.1); MCH 25.1 PG (27-31); MCHC 29.2 g/dL (33-37); MCV 85.8 FL (81-99); MPV 12.5 FL (7.4-10.4); NEUT# 7.87 X1000 (1.4-6.5); NEUT% 64.2 % (42.2-75.2); PLT 416 X1000 (130-400); RBC 2.95 XMIL (4.2-5.4); RDW 20.1 % (11.5-14.5); WBC 12.25 X1000 (4.8-10.8)
[2019-03-07 06:37] LABS: ALBUMIN 2.2 g/dL (3.5-5.0); CALCIUM 8.7 mg/dL (8.8-10.2); CREATININE 1.9 mg/dL (0.5-0.9); PHOSPHORUS 4.5 mg/dL (2.7-4.5); POTASSIUM 4.3 mmol/L (3.5-5.1)
--- NOTE | 2019-03-07 07:37 | INFECTIOUS DISEASE PROGRESS NO ---
DATE: 03/07/2019 PRESENT ILLNESS: The patient has an Escherichia coli urinary tract infection and a Bacteroides fragilis bacteremia, pneumonia, and left-sided empyema. MEDICATIONS: This is day 8 of treatment with Zosyn. PHYSICAL EXAMINATION: Vital Signs: Temperature is 97.6 degrees, pulse 55, respirations 25, blood pressure is 125/41. General: This is an obese, elderly female. She currently is wearing a BiPAP mask. Head, Eyes, Ears, Nose, and Throat: As mentioned above, the patient has a BiPAP mask on. There is no drainage from her nose or ears. Neck: No pain with movement. Lungs: There are diminished breath sounds on the left side. The right side is clear. Thorax: The patient has a chest tube that is in the back and appears to be in the lower part of the back. Abdomen: Soft and nontender. The patient has a right groin triple-lumen catheter in place. The site is not purulent or erythematous. Neurologic: The patient was lethargic today but she was arousable enough to have her move her arms or legs to my requests. LAB AND X-RAY: The chest x-ray reading is not back. My reading of it is that the patient has a left pleural effusion and left lung infiltrates. The chest tube is visualized and it appears to curl on itself in the bottom part of the empyema cavity. The patient's CBC shows a white count of 12,250, hemoglobin 7.4, and platelet count 416,000. Blood gases show a pH of 7.2, a PO2 of 132, a pCO2 of 67. Creatinine is 1.9. GFR is 25. ASSESSMENT AND PLAN: The patient has an Escherichia coli urinary tract infection and a Bacteroides bacteremia, pneumonia, and empyema. My plan is to continue Zosyn. COMORBIDITIES: The patient is elderly and obese. She has sleep apnea, gastroesophageal reflux disease, diabetes mellitus, chronic obstructive pulmonary disease, and the patient has a history of cigarette smoking but none recently. cc: MD Dat Sherwood MD
--- NOTE | 2019-03-07 07:40 | Diag Imaging Result Doc PS360 ---
CHEST-1 VIEW - 03/07/2019 INDICATION: SOB COMPARISON: 03/06/2019 FINDINGS: There has been decrease in the left basilar pleural effusion. There is a new pigtail drainage catheter in good position at the left lung base. Stable cardiomegaly and pulmonary vascular congestion. Stable infiltrate/edema throughout the left lung. IMPRESSION: Decrease in the left basilar pleural effusion. Drainage catheter in apparently good position. Electronically signed by Cristiano Lynn 03/07/2019 7:38 AM
[2019-03-07] MEDS: HEPARIN SUBQ SCH ×2 (08:20→20:17)
[2019-03-07] MEDS: ASPIRIN PO SCH (08:30)
[2019-03-07] MEDS: NORVASC PO SCH ×2 (08:30→20:17)
[2019-03-07] MEDS: NS NEB INH SCH ×2 (09:52→15:28)
[2019-03-07] MEDS: XOPENEX NEB INH SCH ×3 (09:52→22:02)
[2019-03-07] MEDS ORDERED: HALDOL IV PRN (10:36)
[2019-03-07] MEDS ORDERED: NS IV SCH (11:00)
[2019-03-07] MEDS ORDERED: CATHFLO IV SCH (11:00)
[2019-03-07] MEDS ORDERED: SODIUM CHLORIDE IV SCH (13:00)
[2019-03-07] MEDS ORDERED: [UNRECOGNIZED DRUG - OTHER] IV SCH (13:00)
[2019-03-07] MEDS ORDERED: MORPHINE IV PRN (16:20)
[2019-03-07] MEDS: CATHFLO IV SCH (18:44)
[2019-03-07] MEDS: [UNRECOGNIZED DRUG - OTHER] IV SCH ×2 (18:44→20:18)
[2019-03-07] MEDS: SODIUM CHLORIDE IV SCH ×2 (18:44→20:18)
[2019-03-07] MEDS: NS IV SCH (18:44)
--- NOTE | 2019-03-07 21:13 | PULMONOLOGY PROGRESS NOTE ---
DATE: 03/07/2019 SUBJECTIVE: The patient is on BiPAP, but is arousable and alert. She is without specific complaints. OBJECTIVE: Vital Signs: The patient has been afebrile for the last 24 hours. Blood pressure 137/49, heart rate 60, respiratory rate 18, oxygen saturation 97%. Oxygen saturation 97%. HEENT: pupils are equal and reactive. Oropharynx is clear. Neck: Supple. Chest: Reveals diminished breath sounds, left base. Cardiac: S1, S2. Abdomen: Obese and soft. Extremities: Reveal trace to 1+ peripheral edema. IMAGING: Chest x-ray reveals a pigtail catheter in the left hemithorax. She continues to have a large left-sided pleural effusion. LABORATORY DATA: White blood count 12.25, hemoglobin 7.4, platelet count 416,000. Sodium 142, potassium 4.3, chloride 106, bicarbonate 25, BUN 55, creatinine 1.9. IMPRESSION: An 83-year-old with 1. Empyema, status post percutaneous catheter placement with minimal drainage over the last 24 hours. 2. Hypoxemic and hypercapnic respiratory failure. 3. Diastolic heart failure. 4. Chronic renal failure. DISCUSSION: An 83-year-old with problems outlined above. Catheter appears to be in good position, but is not draining the thick viscous fluid in the left hemithorax. I did add tPA and DNase this morning and I will repeat it this afternoon. I am going to obtain a CT scan of the thorax tomorrow given limited drainage of material. PLAN: 1. Second dose of tPA/DNase this evening. 2. Continue drainage to low continuous suction. 3. Continue antibiotics per Infectious Disease. 4. CT scan of the thorax tomorrow. cc: MD Dat Dietrich MD
[2019-03-08] MEDS: ZOSYN 3.375 GM in NS 50 ML IV SCH ×4 (02:02→19:36)
[2019-03-08 06:01] LABS: ALLEN TEST YES; BE -0.1 mmoll (-3.0-3.0); BLOOD TYPE ARTERIAL; HCO3-(ACT) 24.8 mmoll (20.0-26.0); METHB 1.3 % (0.0-1.5); O2(CT) 9.5 mL/dL (15.0-23.0); O2HB 94.2 % (95.0-99.0); PO2(98.6) 72 mmHg (60-100); SAMPLE BLOOD; SAO2 97.7 % (95.0-100.0); THB 7.1 g/dL (11.5-17.4); pH(98.6) 7.28 (7.35-7.45)
[2019-03-08] MEDS: PROTONIX IV SCH (06:02)
[2019-03-08 06:03] LABS: MODALITY BI PAP; PCO2(98.6) 57 mmHg (35-45)
[2019-03-08] MEDS: HUMALOG SUBQ SCH ×4 (06:03→20:06)
--- NOTE | 2019-03-08 06:23 | PROGRESS NOTE ---
DATE: 03/08/2019 SUBJECTIVE: Patient reports not feeling good. According to nursing staff, she has been using BiPAP last night. She cannot talk too much because she is wearing a BiPAP mask now. No other issues noted as per nursing staff overnight. According to nursing staff drainage from pleural catheter has been only 20 mL of serosanguineous-looking fluids. OBJECTIVE: Vital Signs: Temperature 97.3 degrees, heart rate 54 respiratory 17 blood pressure 139/50, O2 saturation 96% on BiPAP, FiO2 40%. General: This is a chronically ill-looking, morbidly obese, 33-year-old female lying in bed, in no acute distress. Cardiovascular: S1, S2 heard. No murmurs, gallops, or rubs. Regular rate and rhythm. Respiratory: Decreased breath sounds globally with bilateral rhonchi. Decreased breath sounds on the left side. There is a percutaneous catheter placed in the left chest to intermittent suction connected. Abdomen: Soft. A little bit distended but nontender to palpation. Bowel sounds present. No organomegaly. Extremities: There is 2+ pitting edema, lower extremities. No clubbing, cyanosis noted peripheral pulses present in both legs but faint. Neurological: Patient is a little bit more awake in comparing with yesterday. Answered questions appropriately. LABORATORY DATA: Pending at time of dictation. ASSESSMENT AND PLAN: 1. Acute hypoxemic, hypercarbic respiratory failure. Yesterday, ABG showed pH 7.20, with elevated CO2 of 67. That is the reason why this patient continues to be on BiPAP at night. We are going to check an ABG this morning. We will continue checking for the next 3 days. Pulmonary following this patient. We will follow recommendations. 2. Empyema on the left side of the chest status post percutaneous catheter placement to low intermittent suction. Because there was not too much drainage coming out pulmonary Dr. Moyer decided to place the tPA. She received 2 doses actually but there has not been not too much drainage. It just came out 20 mL serosanguineous fluid at this time. CT of the chest without contrast has been ordered by Pulmonary. We will see what it shows and will go from there. It is important to remark that from General Surgery they have mentioned that this patient is not a candidate for any surgical procedure for this empyema. At this point, we will continue current antibiotics. 3. Sepsis secondary to fragile bacteroides. Dr. Fernandes from Infectious Disease is following this patient. Today is #10 of antibiotic with Zosyn. We will continue following recommendations from them. 4. Cholelithiasis with no signs of cholecystitis. 5. Chronic kidney disease stage 3. Creatinine continues to be at baseline. We will continue to monitor. 6. Anemia of chronic disease. Hemoglobin from yesterday is 7.4. If that drops or is close to 7.0 we will transfuse 1 more unit. 7. Hypertension. Blood pressure is under control. We will continue with the same management. 8. Physical deconditioning. At this point, patient is not able to work with PT at all. DISPOSITION: The patient continues to be critically ill. We will continue to monitor this patient here in the unit. So far he has been 21 days in the hospital. cc: Dat Jennings MD
[2019-03-08 07:04] LABS: ALBUMIN 2.4 g/dL (3.5-5.0); CALCIUM 9.1 mg/dL (8.8-10.2); CREATININE 1.9 mg/dL (0.5-0.9); PHOSPHORUS 3.9 mg/dL (2.7-4.5); POTASSIUM 3.9 mmol/L (3.5-5.1)
--- NOTE | 2019-03-08 07:22 | Diag Imaging Result Doc PS360 ---
EXAM: CHEST-1 VIEW 03/08/2019 HISTORY: SOB TECHNIQUE: AP portable at 0524 COMMENT: The drainage catheter which was previously placed is again noted over the left hemithorax. There is opacification of the retrocardiac portion of the left lower lobe and ill-defined opacity and blunting of the lateral costophrenic angle is present over the right base. There has been considerable clearing of the left upper lobe since the previous study. There is more opacification in the lower right hemithorax however. IMPRESSION: Improved left pleural fluid collection. Right pleural effusion. Pulmonary edema and/or pneumonia particularly in the left lower lobe. Electronically signed by Justin Richards 03/08/2019 7:19 AM
[2019-03-08 07:55] LABS: BASO# 0.25 X1000 (0.0-0.2); BASO% 1.8 % (0.0-0.8); EOS# 0.46 X1000 (0.0-0.7); EOS% 3.3 % (0.0-10.0); HEMATOCRIT 23.5 % (37.0-47.0); IMM GRAN# 0.12 X1000 (0.0-0.04); IMM GRAN% 0.9 % (0.0-0.5); LYMPH# 2.72 X1000 (1.2-3.4); LYMPH% 19.7 % (20.5-51.1); MCH 25.4 PG (27-31); MCHC 29.8 g/dL (33-37); MCV 85.1 FL (81-99); MONO# 1.11 X1000 (0.11-0.59); MPV 12.5 FL (7.4-10.4); NEUT# 9.17 X1000 (1.4-6.5); NEUT% 66.3 % (42.2-75.2); PLT 402 X1000 (130-400); RBC 2.76 XMIL (4.2-5.4); RDW 20.3 % (11.5-14.5); WBC 13.83 X1000 (4.8-10.8)
--- NOTE | 2019-03-08 08:07 | INFECTIOUS DISEASE PROGRESS NO ---
DATE: 03/08/2019 PRESENT ILLNESS: The patient had an Escherichia coli urinary tract infection however that has cleared. The patient does have now though Bacteroides fragilis bacteremia which is cleared also, and she also has a Bacteroides pneumonia with a left-sided empyema. MEDICATIONS: This is the 9th day of treatment with Zosyn. PHYSICAL EXAMINATION: Vital Signs: Temperature is 97.3 degrees, pulse 54, respirations 17, blood pressure is 139/50. General: This is an obese, elderly female. She is wearing a BiPAP mask now. She does not appear to be in any acute distress. Head/eyes/ears/nose/throat: As mentioned above the patient has a BiPAP mask on. I do not see any drainage from her nose or ears. Neck: She does not seem to have any pain when she moves her neck. Lungs: There are diminished breath sounds on the left side. The right side sounds clear. Thorax: The patient has a left-sided chest tube in place. Abdomen: Soft and nontender. The patient has in her right groin a triple- lumen catheter and that site is not erythematous or bleeding. Neurologic: The patient remains lethargic. She is arousable though and she can move her arms or legs to request. LAB AND X-RAY: The CBC is pending. The blood gases show a pH of 7.28, a PO2 of 72, and a pCO2 of 57. Creatinine is 1.9. GFR is 25. Pleural fluid culture is negative. The patient's chest x-ray for today shows improvement of the left pleural fluid collection. There is more opacification in the lower right hemo thorax. There has also been considerable clearing of the left upper lobe infiltrate. ASSESSMENT AND PLAN: The patient's urinary tract infection and bacteremia have cleared up and currently now the patient is being treated for pneumonia and empyema with Zosyn. COMORBIDITIES: The patient is elderly and obese. She also has sleep apnea, gastroesophageal reflux disease, diabetes mellitus, chronic obstructive pulmonary disease. She was a cigarette smoker, but has not done it recently. cc: MD Dat Sherwood MD
--- NOTE | 2019-03-08 08:56 | Diag Imaging Result Doc PS360 ---
CT THORAX W/O CONTRAST - 03/08/2019 INDICATION: empyema COMPARISON: 02/28/2019 FINDINGS: The left pleural drainage catheter has pulled out into the soft tissues. There is a stable moderate left pleural fluid collection. There has been slight worsening in the small right pleural effusion. There is cardiomegaly. There is bibasilar infiltrates/atelectasis. IMPRESSION: Left pleural drainage catheter has been pulled out into the soft tissues. This can be replaced by this radiologist if desired. This exam was performed using automated exposure control, adjustment of mA or kV according to patient size, and/or use of iterative reconstruction technique Electronically signed by Cristiano Lynn 03/08/2019 8:54 AM
[2019-03-08 09:07] LABS: BANDS 1 % (0-1); LYMPHS 20 % (21-51); MONO 7 % (1-9); SEGS 72 % (42-75)
[2019-03-08] MEDS: ASPIRIN PO SCH (09:21)
[2019-03-08] MEDS: NORVASC PO SCH ×2 (09:21→20:28)
[2019-03-08] MEDS: HEPARIN SUBQ SCH ×2 (09:22→20:28)
--- NOTE | 2019-03-08 10:38 | Diag Imaging Result Doc PS360 ---
US THORACENTESIS W/IMAGE GUIDE - 03/08/2019 INDICATION: chest tube reinsertion TECHNIQUE: The risks and benefits of the procedure were discussed with the patient. All questions were answered. Written and verbal informed consent was obtained. Overlying skin was prepped and draped in sterile fashion. Anesthesia was achieved with injection of 10 cc of 1% lidocaine. COMPARISON: None FINDINGS: The drainage catheter was removed. The same tract was used. A 12-Cameroonian drainage catheter was placed. Initially there was some pus successfully aspirated using a syringe, however less than 100 cc was obtained. There appears to be repeated obstruction with thick gelatinous material. IMPRESSION: Apparently successful left pleural drainage catheter placement with a 12-Cameroonian drain. However there has been very little successful drainage of the empyema due to thick gelatinous material. Electronically signed by Cristiano Lynn 03/08/2019 10:36 AM
[2019-03-08] MEDS: XOPENEX NEB INH SCH ×3 (11:23→21:45)
[2019-03-08] MEDS: NS IV SCH ×4 (13:21→18:32)
[2019-03-08] MEDS: CATHFLO IV SCH ×4 (13:21→18:32)
[2019-03-08] MEDS: SODIUM CHLORIDE IV SCH ×2 (13:23→18:15)
[2019-03-08] MEDS: [UNRECOGNIZED DRUG - OTHER] IV SCH ×2 (13:23→18:15)
--- NOTE | 2019-03-08 14:46 | GENERAL SURGERY PROGRESS NOTE ---
DATE: 03/08/2019 SUBJECTIVE: She remains somnolent, overall about the same. Clinically, she is still on BiPAP with increased work of breathing. She did have repositioning of her pleural tube today by Dr. Lynn. There was quite a lot of purulent material in the Pleur-evac. I do not see an air leak. No fevers. OBJECTIVE: Vital Signs: Pulse 69, blood pressure 133/64. She is on 40% BiPAP. General: She is not really verbally responsive but is somewhat arousable. No tachycardia. CHEST: Chest tubes on the left in place with purulent output. LABORATORY DATA: White count was 13. I reviewed her ABG. I reviewed her x-ray, which shows some improvement. She does have persistent chronic renal insufficiency with creatinine 1.9. I reviewed her CT scan. ASSESSMENT AND PLAN: This is an 83-year-old female with empyema and underlying lung disease. Although the fluid is thick based off the imaging she has obtained, we do show improvement in this posteriorly inferiorly loculated collection. I still do not feel that she would tolerate any more invasive procedure and despite drainage of this fluid, her pulmonary status has not really improved. She has a low leukocytosis. We will continue to follow along but doubtful she will require any further surgical intervention. cc: MD Dat Weston MD
--- NOTE | 2019-03-08 14:49 | PULMONOLOGY PROGRESS NOTE ---
DATE: 03/08/2019 INTERIM HISTORY: Minimal drainage was noted from the left-sided chest tube. The patient was sent for a CT scan this morning. The tube was noted to be outside the hemithorax. Discussion was held with the radiologist and he agreed to replace the tube. Ms. Petersen was informed that the chest tube with need to be replaced and she agreed. A larger bore tube was placed in the left chest. She has returned. She is doing well. The pharmacist brought over the tPA and the DNase in the I instilled it at the bedside and it is currently dwelling for 1 hour before the catheter is opened back up for drainage. OBJECTIVE: Vital Signs: The patient has been afebrile for the last 24 hours. Blood pressure 133/64, heart rate 59, respiratory rate 23. Oxygen saturation 95% on face mask. HEENT: Pupils are equal and reactive. Oropharynx appears clear. Neck: Supple. Chest: Reveals new chest tube placement in the left hemithorax. More catheter has been left in the thorax after this insertion. Decreased breath sounds both lung bases, left greater than right. Cardiovascular: S1-S2. Abdomen: Obese and soft. Extremities: Reveal trace edema. LABORATORIES: White blood count 13.83, hemoglobin 7.0, platelet count 422,000. Arterial blood gas reveals a pH 7.28, pCO2 of 57, pO2 of 72. IMPRESSION: An 83-year-old with: 1. Empyema. Chest tube has been placed and subsequently replaced as outlined above. 2. Hypoxemic and hypercapnic respiratory failure. 3. Diastolic heart failure. 4. Chronic renal failure. PLAN: 1. Continue tPA and DNase dosing. I will place a 2nd dose this evening. 2. Continue antibiotics per Infectious Disease. 3. Prognosis remains guarded. cc: MD Dat Dietrich MD
[2019-03-08] MEDS: TYLENOL PO PRN (20:28)
[2019-03-09] MEDS: ZOSYN 3.375 GM in NS 50 ML IV SCH ×4 (01:21→20:21)
[2019-03-09] MEDS ORDERED: NS 500 ML IV ONE (05:31)
[2019-03-09] MEDS: PROTONIX IV SCH ×2 (05:54→06:05)
[2019-03-09] MEDS: HUMALOG SUBQ SCH ×4 (06:05→21:35)
[2019-03-09 06:28] LABS: ALBUMIN 2.1 g/dL (3.5-5.0); CALCIUM 8.1 mg/dL (8.8-10.2); CREATININE 1.9 mg/dL (0.5-0.9); PHOSPHORUS 3.6 mg/dL (2.7-4.5); POTASSIUM 3.9 mmol/L (3.5-5.1)
--- NOTE | 2019-03-09 06:56 | PROGRESS NOTE ---
DATE: 03/09/2019 SUBJECTIVE: The patient reports feeling a little bit tired according to the nursing staff. She has been using BiPAP last time without any problems. During the last 12 hours the patient has been having 300 mL of pleural drainage. No other issues noted. OBJECTIVE: Vital Signs: Temperature 97.6, heart rate 63, respiratory rate 27, blood pressure 110/67, O2 saturation is 98% on BiPAP at FiO2 40%. General: This is a chronically ill-looking morbidly obese 83-year-old female lying in bed in no acute distress. Cardiovascular: S1, S2 heard. No murmurs, gallops or rubs. Regular rate and rhythm. Respiratory: Good breath sounds on the left side. There is a pleural drainage catheter on the left side to intermittent suction connected. Abdomen: Soft, a little bit distended, nontender to palpation. No signs of peritoneal irritation. Bowel sounds present. No organomegaly. Extremities: Still 2+ pitting edema in both lower extremities, but no clubbing or cyanosis noted. Peripheral pulses present in both legs, but faint. Neurological: The patient is awake, using a BiPAP mask. Moves all 4 extremities spontaneously. Follows commands. LABORATORY DATA: Pending at the time of dictation. ASSESSMENT AND PLAN: 1. Acute hypoxemic hypercarbic respiratory failure. This patient reports feeling better. We checked yesterday ABGs that shows a pH of 7.28, with PCO2 of 57, this morning according to the nursing staff they tried to get an ABG but was not successful. Clinically the patient looks better so we will continue to monitor this patient closely. 2. Empyema on the left side of the chest status post percutaneous catheter placement. Yesterday Dr. Moyer ordered a CT of the chest which basically showed stable moderate left pleural fluid. It was found that the catheter had been pulled out into the soft tissues so that catheter was replaced, and he provided 2 doses of tPA and since then secretions are much better. So far over the last 12 hours they have removed 300 mL of empyema. At this point we will continue with the same management. The patient will be evaluated by Surgery, they think that this patient is improving and is still not a candidate for any further surgical procedure, they think that she is not going to need it. At this point we will continue with the same medications. 3. Sepsis secondary to bacteroides fragilis. Dr. Fernandes of Infectious Disease is directing antibiotics, today is day #11 of Cecille. We will continue with the same management. 4. Cholelithiasis with no signs of cholecystitis. Aware. 5. Chronic kidney disease stage 3. Creatinine continues to be at baseline. We will continue to monitor. 6. Anemia of chronic disease. Hemoglobin is 7.0 today, so I think I will transfuse 1 unit of blood. 7. Hypertension. Blood pressure is under control. We will continue with the same management. 8. Physical deconditioning. At this point the patient is not able to work with PT. 9. Disposition. The patient is still ill. Fortunately this pleural catheter is working, we will continue to monitor this patient here in the Intensive Care Unit. So far she has been 22 days in the hospital. Addendum: Patient's hemoglobin returned 5.4 so will order 2 more units of PRBC and will check CT abdomen and pelvis for this apparent anemia of acute blood loss. Will continue to monitor patient closely in ICU and will hold any fibrinolytic for now. cc: Dat Jennings MD MTDD
[2019-03-09 07:20] LABS: BASO# 0.12 X1000 (0.0-0.2); BASO% 0.9 % (0.0-0.8); EOS# 0.28 X1000 (0.0-0.7); EOS% 2.2 % (0.0-10.0); HEMATOCRIT 18.8 % (37.0-47.0); IMM GRAN# 0.06 X1000 (0.0-0.04); IMM GRAN% 0.5 % (0.0-0.5); LYMPH# 2.53 X1000 (1.2-3.4); LYMPH% 19.6 % (20.5-51.1); MCH 25.7 PG (27-31); MCHC 29.8 g/dL (33-37); MCV 86.2 FL (81-99); MONO# 1.87 X1000 (0.11-0.59); MONO% 14.5 % (1.7-9.3); MPV 11.8 FL (7.4-10.4); NEUT# 8.05 X1000 (1.4-6.5); NEUT% 62.3 % (42.2-75.2); PLT 371 X1000 (130-400); RBC 2.18 XMIL (4.2-5.4); RDW 20.2 % (11.5-14.5); WBC 12.91 X1000 (4.8-10.8)
[2019-03-09 07:23] LABS: HEMOGLOBIN 5.6 g/dL (12.0-16.0)
--- NOTE | 2019-03-09 07:33 | Diag Imaging Result Doc PS360 ---
EXAM: CHEST-1 VIEW HISTORY: SOB TECHNIQUE: Single view COMPARISON: 03/08/2019 FINDINGS: Poor inspiratory effort. There is a [id number] sized left pleural effusion. There is left basilar atelectasis and underlying infiltrates. Mild pulmonary edema. There is a left chest tube. IMPRESSION: Mild worsening pulmonary edema. Electronically signed by Gildardo Chávez 03/09/2019 7:31 AM
[2019-03-09 09:04] LABS: ANISOCYTOSIS 2+; BANDS 10 % (0-1); HYPOCHROM 2+; LYMPHS 20 % (21-51); MONO 6 % (1-9); SEGS 64 % (42-75); TARGET CELLS OCCASIONAL
[2019-03-09] MEDS: XOPENEX NEB INH SCH ×3 (09:14→21:50)
[2019-03-09] MEDS: NORVASC PO SCH ×2 (09:19→21:14)
[2019-03-09] MEDS: HEPARIN SUBQ SCH ×2 (09:24→21:13)
[2019-03-09] MEDS: ASPIRIN PO SCH (09:24)
[2019-03-09] MEDS: CATHFLO IV SCH ×2 (09:30→18:41)
[2019-03-09] MEDS: NS IV SCH ×2 (09:30→18:41)
[2019-03-09] MEDS: [UNRECOGNIZED DRUG - OTHER] IV SCH ×2 (09:30→21:12)
[2019-03-09] MEDS: SODIUM CHLORIDE IV SCH ×2 (09:30→21:12)
--- NOTE | 2019-03-09 09:45 | INFECTIOUS DISEASE PROGRESS NO ---
DATE: 03/09/2019 PRESENT ILLNESS: The patient has a Bacteroides pneumonia and left-sided empyema. MEDICATIONS: This is day 10 of treatment with Zosyn. PHYSICAL EXAMINATION: Vital Signs: Temperature is 97.6 degrees, pulse 63, respirations 27, blood pressure is 110/62. General: This is a morbidly obese, elderly female. She still requires wearing a BiPAP mask. HEENT: She can hear my spoken words and she does seem to be able to see near objects. She is wearing a BiPAP mask. Neck: No stiffness. Lungs: There were diminished breath sounds bilaterally, but I did hear bilateral rhonchi when I could hear breath sounds. Cardiovascular: Heart rate is regular. Abdomen: Soft and not tender. Extremities: The patient has bilateral leg edema but no erythema. Neurologic: The patient is lethargic today. She does not have a tremor. Thorax: The patient does have a left-sided chest tube in place in her back. Integument: No rash noted. LAB/X-RAY DATA: CBC shows a white count of 12,910, hemoglobin 5.6, platelet count 371,000. Creatinine is 1.9. GFR is 25. Chest x-ray shows bibasilar infiltrates and pulmonary edema. ASSESSMENT AND PLAN: The patient previously had a urinary tract infection and bacteremia which have cleared. Now her main problem is pneumonia and empyema which is being treated with Zosyn. COMORBIDITIES: The patient is elderly and obese. She also has sleep apnea, gastroesophageal reflux disease, diabetes mellitus, chronic obstructive pulmonary disease, and the patient does have a history of cigarette smoking in the past but not recently. cc: MD Dat Sherwood MD
--- NOTE | 2019-03-09 11:19 | Diag Imaging Result Doc PS360 ---
EXAM: CT ABDOMEN/PELVIS W/O CONTRAST INDICATION: anemia of blood loss TECHNIQUE: This exam was performed using automated exposure control, adjustment of mA or kV according to patient size, and/or use of iterative reconstruction technique. COMPARISON: 02/20/2019 FINDINGS: There is a known empyema on the left and there has been interval placement of a pigtail drainage catheter in the left pleural space. It is in the expected position. There is still a significant amount of pleural fluid on the left. There is also a moderate amount of serous density pleural fluid on the right that has increased in size.. There is significant bibasilar atelectasis and/or infiltrate bilaterally. The nonspecific hypodense lesions at the superior right hepatic lobe seen on the previous study are again identified and appear stable. There is trace ascites tracking around the liver and layering in the pelvis. The spleen, pancreas, and adrenal glands are stable and are essentially unremarkable. Nonobstructive nephrolithiasis is again noted. The kidneys appear stable. The urinary bladder contains a Sin catheter and is nondistended. No definite focal bowel wall thickening or bowel obstruction is appreciated as imaged with unenhanced CT. There is a very small stable hiatal hernia. The remainder of the GI tract is essentially unremarkable and stable. No free abdominal gas or definite focal inflammatory changes are appreciated. There is body wall anasarca similar to the previous study. IMPRESSION: 1.Interval placement of pigtail drainage catheter in the left pleural space in the expected position as described. 2.Increase in size in right pleural effusion. 3.Development of trace ascites tracking around the liver and layering in the pelvis. 4.Otherwise, the abdomen and pelvis are essentially stable compared to the previous study. Electronically signed by Bassam Stock 03/09/2019 11:17 AM
[2019-03-09] MEDS ORDERED: BENADRYL IV PRN (11:33)
[2019-03-09] MEDS ORDERED: NS 500 ML ONE (13:23)
[2019-03-09] MEDS ORDERED: STERILE WATER INJ. ONE (14:45)
--- NOTE | 2019-03-09 16:18 | PROVIDER PROGRESS NOTE ---
Progress Note Dr. Acosta Progress Note/Pulmonary and or critical care We appreciated progress of care, Complications, change in diagnosis, and instructions to patient. Subjective: We note the level of consciousness, bed (chair) position, family presence (if any), level of lethargy, feeling of symptoms, and changes from baseline condition/symptom. The patient is lying in bed with a BiPAP mask on. Left chest tube in place with about 700 cc black yellow drainage. RN reports it has been functioning well si nce yesterday on her shift. Patient appears lethargic and she is asking for water. She denies any pain. Her Hgb has been dropped significantly from 7.0 yesterday to 5.6 this am. Blood transfusion has been ordered by Dr. Son. No family at the bedside. Objective: Vital Signs: We reviewed EMR current values for Pulse rate, Blood pressure, Pulse rate, respiratory rate and Pulse oximetry. Also noted other values and trends if present (e.g. I/O, CVP). T 97.1 (no fever in last 24 hours), [place] 64, RR 27, BP 123/48 and SaO2 97% on BiPAP 10/5, 40%. I/O +1645 ml Physical Examination: General: Lying in bed with no acute distress noted. HEENT: Normocephalic. Trachea midline. Chest: Mild tachypnea. Symmetrical excursion. Left-sided chest tube in place and patent. Auscultation reveals diminished breathing sounds RLL. CVS: Regular rate and rhythm with S1 and S2 appreciated. Abdomen: Soft. Nontender. Nondistended. Normoactive bowel sounds in all 4 quadrants noted. Extremities: BLE and BUE edema 2-3+. No cyanosis. No clubbing. Neuro: Lethargic, but arousable. Speech fluent. Follow simple commands. Labs and Radiology: Reviewed available labs and radiology values available at time of EMR review. Laboratory Results 03/05/19 03/08/19 03/09/19 07:45 20:05 05:25 WBC RBC Hgb Hct MCV MCH MCHC RDW Std Deviation Plt Count MPV Immature Gran % (Auto) Neut % (Auto) Lymph % (Auto) [place] % (Auto) Eos % (Auto) Baso % (Auto) Immature Gran # (Auto) Neut # (Auto) Lymph # (Auto) [place] # (Auto) Eos # (Auto) Baso # (Auto) Corrected WBC (Man) Segmented Neutrophils Band Neutrophils Lymphocytes Monocytes Hypochromia Anisocytosis Target Cells Sodium 141 Potassium 3.9 Chloride 107 Carbon Dioxide 24 L Anion Gap 10 BUN 52 H Creatinine 1.9 H Estimated GFR/1.73 m2 25 BUN/Creatinine Ratio 27 Glucose 94 POC Glucose 107 H Calculated Osmolality 295 Calcium 8.1 L Phosphorus 3.6 Albumin 2.1 L Blood Type Antibody Screen Antibody Identification Crossmatch See Detail Crossmatch ([facility]) 03/09/19 03/09/19 03/09/19 05:25 06:00 06:03 WBC Cancelled RBC Cancelled Hgb Cancelled Hct Cancelled MCV Cancelled MCH Cancelled MCHC Cancelled RDW Std Deviation Cancelled Plt Count Cancelled MPV Cancelled Immature Gran % (Auto) Cancelled Neut % (Auto) Cancelled Lymph % (Auto) Cancelled [place] % (Auto) Cancelled Eos % (Auto) Cancelled Baso % (Auto) Cancelled Immature Gran # (Auto) Cancelled Neut # (Auto) Cancelled Lymph # (Auto) Cancelled [place] # (Auto) Cancelled Eos # (Auto) Cancelled Baso # (Auto) Cancelled Corrected WBC (Man) Cancelled Segmented Neutrophils Band Neutrophils Lymphocytes Monocytes Hypochromia Anisocytosis Target Cells Sodium Potassium Chloride Carbon Dioxide Anion Gap BUN Creatinine Estimated GFR/1.73 m2 BUN/Creatinine Ratio Glucose POC Glucose 97 Calculated Osmolality Calcium Phosphorus Albumin Blood Type B NEGATIVE Antibody Screen POSITIVE Antibody Identification Anti-C Crossmatch Crossmatch ([facility]) See Detail 03/09/19 03/09/19 03/09/19 07:01 11:09 16:19 WBC 12.91 H RBC 2.18 L Hgb 5.6 L* D Hct 18.8 L MCV 86.2 MCH 25.7 L MCHC 29.8 L RDW Std Deviation 20.2 H Plt Count 371 MPV 11.8 H Immature Gran % (Auto) 0.5 Neut % (Auto) 62.3 Lymph % (Auto) 19.6 L [place] % (Auto) 14.5 H Eos % (Auto) 2.2 Baso % (Auto) 0.9 H Immature Gran # (Auto) 0.06 H Neut # (Auto) 8.05 H Lymph # (Auto) 2.53 [place] # (Auto) 1.87 H Eos # (Auto) 0.28 Baso # (Auto) 0.12 Corrected WBC (Man) Segmented Neutrophils 64 Band Neutrophils 10 H Lymphocytes 20 L Monocytes 6 Hypochromia 2+ Anisocytosis 2+ Target Cells OCCASIONAL Sodium Potassium Chloride Carbon Dioxide Anion Gap BUN Creatinine Estimated GFR/1.73 m2 BUN/Creatinine Ratio Glucose POC Glucose 172 H D 128 H Calculated Osmolality Calcium Phosphorus Albumin Blood Type Antibody Screen Antibody Identification Crossmatch Crossmatch ([facility]) Assessment: Empyema. Chest tube initially placed on 03/06/19 and later reinsertion on 03/08/19. Acute hypoxemic and hypercapnic respiratory failure. Diastolic congestive heart failure. Chronic renal failure. Severe normocytic anemia. Plan: Continue current treatment and supportive care per admitting and other teams on the case. Supplemental oxygen and BiPAP as needed. Hold tPA and DNase today secondary to severe anemia. Blood transfusion per Dr. Son. Antibiotics (Zosyn) per Dr. Fernandes. Bronchodilators. Appropriate DVT and GI prophylaxis Input was appreciated from Admitting MD and other teams on the case. Evaluation time in minutes: 31 minutes.
[2019-03-09 21:13] LABS: HEMATOCRIT 31.4 % (37.0-47.0); HEMOGLOBIN 10.1 g/dL (12.0-16.0)
[2019-03-10 00:53] LABS: HEMATOCRIT 30.7 % (37.0-47.0); HEMOGLOBIN 9.7 g/dL (12.0-16.0)
[2019-03-10] MEDS: ZOSYN 3.375 GM in NS 50 ML IV SCH ×3 (01:44→17:41)
[2019-03-10 04:39] LABS: ALLEN TEST YES; BE -1.3 mmoll (-3.0-3.0); BLOOD TYPE ARTERIAL; HCO3-(ACT) 23.9 mmoll (20.0-26.0); METHB 1.3 % (0.0-1.5); O2(CT) 14.3 mL/dL (15.0-23.0); O2HB 95.2 % (95.0-99.0); PO2(98.6) 114 mmHg (60-100); SAMPLE BLOOD; SAO2 99.2 % (95.0-100.0); THB 10.5 g/dL (11.5-17.4); pH(98.6) 7.26 (7.35-7.45)
[2019-03-10 04:50] LABS: MODALITY BI PAP; PCO2(98.6) 59 mmHg (35-45)
[2019-03-10] MEDS: HUMALOG SUBQ SCH ×4 (06:40→22:14)
[2019-03-10] MEDS: PROTONIX IV SCH (06:41)
--- NOTE | 2019-03-10 06:47 | PROGRESS NOTE ---
DATE: 03/10/2019 SUBJECTIVE: As per nursing staff, patient has been a little bit more confused. She is currently using Venturi mask right now. During the last 12 hours, there has been only 27 mL of pleural drainage. No other issues noted as per nursing staff overnight. OBJECTIVE: Vital Signs: Temperature 97.4 degrees, heart rate is 57, respiratory rate 16, blood pressure 138/59, O2 saturation 92% on BiPAP. General examination: This is a chronically ill appearing and morbidly obese, 83-year-old female, lying in bed in no acute distress. Cardiovascular exam: S1, S2 heard. No murmurs, gallops, or rubs. Regular rate and rhythm. Respiratory exam: Decreased breath sounds in the left side. There is a pleural drainage catheter on the left side connected to intermittent suction. Abdomen: Soft, a little bit distended, but nontender to palpation. No signs of peritoneal irritation. Bowel sounds present. No organomegaly. Extremities: Still 2+ pitting edema in both lower extremities, but no clubbing or cyanosis noted. Peripheral pulses present in both legs, but faint. Neurological exam: Patient is awake using a BiPAP mask. Moves 4 extremities spontaneously. LABORATORY DATA: Pending at the time of dictation. ASSESSMENT AND PLAN: 1. Acute hypoxemic and hypercapnic respiratory failure. Unfortunately, the arterial blood gas shows respiratory acidosis with pH 7.36 with pCO2 59, PO2 114 at this point. We will continue to monitor this patient closely. We will follow recommendations from Pulmonary. 2. Empyema on the left side status post percutaneous catheter placement. Unfortunately, in the last 24 hours there has not been too much secretions coming out. There was 28 mL of drainage noted. A tPA has been held because of anemia. She is not a candidate for any surgical procedure for this condition. At this point, we will continue to monitor closely. We will follow recommendations from Pulmonary. 3. Sepsis secondary to bacteroides fragilis. Infectious Disease, Dr. Fernandes, is following this patient. Today is day #12 Zosyn. We will continue with the same management. 4. Chronic kidney disease stage III. Creatinine continued to be at baseline. We will continue to monitor. 5. Cholelithiasis with no signs of cholecystitis. Aware. 6. Anemia of chronic disease. Hemoglobin has dropped to 5.4 yesterday, so she got 2 units of blood transfused. The last hemoglobin today has been 9.7; we will continue to monitor. There have not been any signs of overt bleeding. CT of the abdomen and pelvis ordered to check for any source of bleeding. It was negative, so at this point we will continue to monitor. 7. Hypertension. Blood pressure is under control. We will continue with same management. 8. Physical deconditioning. The patient has become profoundly weak, but not able to work with physical therapy at this point. 9. Disposition: Patient continues to be critically ill. We will continue to monitor this patient closely in the intensive care unit. I think considering that this patient has been 23 days here in the hospital with really not good improvement, we will check with Palliative Care on Tuesday. cc: Dat Jennings MD
[2019-03-10 07:02] LABS: BASO% 0.8 % (0.0-0.8); EOS# 0.27 X1000 (0.0-0.7); HEMATOCRIT 31.5 % (37.0-47.0); HEMOGLOBIN 9.9 g/dL (12.0-16.0); IMM GRAN# 0.12 X1000 (0.0-0.04); IMM GRAN% 0.9 % (0.0-0.5); LYMPH# 2.92 X1000 (1.2-3.4); LYMPH% 22.1 % (20.5-51.1); MCH 28.8 PG (27-31); MCHC 31.4 g/dL (33-37); MCV 91.6 FL (81-99); MONO# 1.81 X1000 (0.11-0.59); MONO% 13.7 % (1.7-9.3); MPV 11.6 FL (7.4-10.4); NEUT# 7.99 X1000 (1.4-6.5); NEUT% 60.5 % (42.2-75.2); PLT 269 X1000 (130-400); RBC 3.44 XMIL (4.2-5.4); RDW 20.4 % (11.5-14.5); WBC 13.21 X1000 (4.8-10.8)
[2019-03-10 07:12] LABS: ALBUMIN 2.1 g/dL (3.5-5.0); CALCIUM 8.7 mg/dL (8.8-10.2); CREATININE 1.8 mg/dL (0.5-0.9); PHOSPHORUS 3.8 mg/dL (2.7-4.5); POTASSIUM 3.8 mmol/L (3.5-5.1)
[2019-03-10] MEDS: ASPIRIN PO SCH (08:28)
[2019-03-10] MEDS: HEPARIN SUBQ SCH ×2 (08:30→22:13)
[2019-03-10] MEDS: XOPENEX NEB INH SCH ×3 (09:07→21:34)
[2019-03-10] MEDS: NORVASC PO SCH ×2 (10:33→22:13)
--- NOTE | 2019-03-10 10:42 | Diag Imaging Result Doc PS360 ---
EXAM: CHEST-1 VIEW INDICATION: SOB TECHNIQUE: One view COMPARISON: 03/09/2019 FINDINGS: There is a moderate to large size left pleural fluid collection that is approximately stable. There is a stable pleural drainage catheter on the left. There is a stable smaller pleural fluid collection on the right. Adjacent atelectasis and infiltrate on the left is approximately stable given slight differences in positioning. No new consolidation is identified. Cardiac silhouette is stable. IMPRESSION: Essentially stable chest. Electronically signed by Bassam Stock 03/10/2019 10:39 AM
--- NOTE | 2019-03-10 11:39 | PROVIDER PROGRESS NOTE ---
Progress Note Dr. Acosta Progress Note/Pulmonary and or critical care We appreciated progress of care, Complications, change in diagnosis, and instructions to patient. Subjective: We note the level of consciousness, bed (chair) position, family presence (if any), level of lethargy, feeling of symptoms, and changes from baseline condition/symptom. The patient is lying in bed with a VM 50% on. Left chest tube in place with about 60 cc blooded drainage. CXR shows that pleural effusions are stable this am. Patient appears tired. She denies any pain or cough. She states she is not feeling any better. Daughter at the bedside. Objective: Vital Signs: We reviewed EMR current values for Pulse rate, Blood pressure, Pulse rate, respiratory rate and Pulse oximetry. Also noted other values and trends if present (e.g. I/O, CVP). T 96.6 (no fever in last 24 hours), [place] 58, RR 17, BP 130/50 and SaO2 99% on VM 50%. I/O +1695 ml Physical Examination: General: Lying in bed with no acute distress noted. HEENT: Normocephalic. Trachea midline. Chest: Mild tachypnea. Symmetrical excursion. Left-sided chest tube in place. Auscultation reveals diminished breathing sounds bilaterally. CVS: Regular rate and rhythm with S1 and S2 appreciated. Abdomen: Soft. Nontender. Nondistended. Normoactive bowel sounds in all 4 quadrants noted. Extremities: BLE and BUE edema 2-3+. No cyanosis. No clubbing. Neuro: A/O x3. Speech fluent. Follow simple commands. Labs and Radiology: Reviewed available labs and radiology values available at time of EMR review. Laboratory Results 03/09/19 03/09/19 03/10/19 20:50 21:35 00:46 WBC RBC Hgb 10.1 L D 9.7 L Hct 31.4 L D 30.7 L MCV MCH MCHC RDW Std Deviation Plt Count MPV Immature Gran % (Auto) Neut % (Auto) Lymph % (Auto) [place] % (Auto) Eos % (Auto) Baso % (Auto) Immature Gran # (Auto) Neut # (Auto) Lymph # (Auto) [place] # (Auto) Eos # (Auto) Baso # (Auto) Specimen Type Sample Site pH pCO2 pO2 HCO3 Base Excess Oxyhemoglobin ABG O2 Sat (Calculated) ABG O2 Saturation ABG Carboxyhemoglobin ABG Methemoglobin Dariusz Test A-a O2 Difference Total Hemoglobin Lactate Blood Gas Modality Vent Mode FiO2 % Inspiratory BiPAP Expiratory BiPAP Sodium Potassium Chloride Carbon Dioxide Anion Gap BUN Creatinine Estimated GFR/1.73 m2 BUN/Creatinine Ratio Glucose POC Glucose 128 H Calculated Osmolality Calcium Phosphorus Albumin 03/10/19 03/10/19 03/10/19 04:29 05:00 05:00 WBC 13.21 H RBC 3.44 L Hgb 9.9 L Hct 31.5 L MCV 91.6 MCH 28.8 MCHC 31.4 L RDW Std Deviation 20.4 H Plt Count 269 MPV 11.6 H Immature Gran % (Auto) 0.9 H Neut % (Auto) 60.5 Lymph % (Auto) 22.1 [place] % (Auto) 13.7 H Eos % (Auto) 2.0 Baso % (Auto) 0.8 Immature Gran # (Auto) 0.12 H Neut # (Auto) 7.99 H Lymph # (Auto) 2.92 [place] # (Auto) 1.81 H Eos # (Auto) 0.27 Baso # (Auto) 0.10 Specimen Type ARTERIAL Sample Site R RADIAL pH 7.26 L pCO2 59 H* pO2 114 H HCO3 23.9 Base Excess -1.3 Oxyhemoglobin 95.2 ABG O2 Sat (Calculated) 14.3 L ABG O2 Saturation 99.2 ABG Carboxyhemoglobin 2.70 H ABG Methemoglobin 1.3 Dariusz Test YES A-a O2 Difference 97.0 Total Hemoglobin 10.5 L Lactate 0.60 Blood Gas Modality BI PAP Vent Mode BIPAP FiO2 % 40.0 Inspiratory BiPAP 10.0 Expiratory BiPAP 5.0 Sodium 142 Potassium 3.8 Chloride 108 H Carbon Dioxide 25 Anion Gap 9 BUN 44 H Creatinine 1.8 H Estimated GFR/1.73 m2 27 BUN/Creatinine Ratio 24 Glucose 112 H POC Glucose Calculated Osmolality 295 Calcium 8.7 L Phosphorus 3.8 Albumin 2.1 L 03/10/19 03/10/19 06:07 11:50 WBC RBC Hgb Hct MCV MCH MCHC RDW Std Deviation Plt Count MPV Immature Gran % (Auto) Neut % (Auto) Lymph % (Auto) [place] % (Auto) Eos % (Auto) Baso % (Auto) Immature Gran # (Auto) Neut # (Auto) Lymph # (Auto) [place] # (Auto) Eos # (Auto) Baso # (Auto) Specimen Type Sample Site pH pCO2 pO2 HCO3 Base Excess Oxyhemoglobin ABG O2 Sat (Calculated) ABG O2 Saturation ABG Carboxyhemoglobin ABG Methemoglobin Dariusz Test A-a O2 Difference Total Hemoglobin Lactate Blood Gas Modality Vent Mode FiO2 % Inspiratory BiPAP Expiratory BiPAP Sodium Potassium Chloride Carbon Dioxide Anion Gap BUN Creatinine Estimated GFR/1.73 m2 BUN/Creatinine Ratio Glucose POC Glucose 102 132 H Calculated Osmolality Calcium Phosphorus Albumin Assessment: Empyema with worsening right pleural effusion. Left-sided chest tube initially placed on 03/06/19 and later reinsertion on 03/08/19. Acute hypoxemic and hypercapnic respiratory failure. Diastolic congestive heart failure. Chronic renal failure. Severe normocytic anemia. Plan: Continue current treatment and supportive care per admitting and other teams on the case. Supplemental oxygen and BiPAP as needed. Antibiotics (Zosyn) per Dr. Fernandes. Bronchodilators. Appropriate DVT and GI prophylaxis Discuss patient's condition and care plans with family at the bedside and all questions have been answered. Input was appreciated from Admitting MD and other teams on the case. Evaluation time in minutes: 31 minutes.
[2019-03-11] MEDS: ZOSYN 3.375 GM in NS 50 ML IV SCH ×5 (00:09→23:50)
[2019-03-11 05:41] LABS: BASO# 0.08 X1000 (0.0-0.2); BASO% 0.7 % (0.0-0.8); EOS# 0.35 X1000 (0.0-0.7); HEMOGLOBIN 9.6 g/dL (12.0-16.0); IMM GRAN# 0.12 X1000 (0.0-0.04); LYMPH# 2.56 X1000 (1.2-3.4); LYMPH% 21.8 % (20.5-51.1); MCH 28.8 PG (27-31); MCV 93.1 FL (81-99); MONO# 1.42 X1000 (0.11-0.59); MONO% 12.1 % (1.7-9.3); MPV 12.3 FL (7.4-10.4); NEUT# 7.22 X1000 (1.4-6.5); NEUT% 61.4 % (42.2-75.2); PLT 244 X1000 (130-400); RBC 3.33 XMIL (4.2-5.4); RDW 20.6 % (11.5-14.5); WBC 11.75 X1000 (4.8-10.8)
[2019-03-11 06:08] LABS: ALBUMIN 2.1 g/dL (3.5-5.0); CALCIUM 8.8 mg/dL (8.8-10.2); CREATININE 1.7 mg/dL (0.5-0.9); PHOSPHORUS 3.6 mg/dL (2.7-4.5); POTASSIUM 4.3 mmol/L (3.5-5.1)
[2019-03-11] MEDS: HUMALOG SUBQ SCH ×4 (06:16→20:03)
[2019-03-11] MEDS: PROTONIX IV SCH (06:18)
[2019-03-11 06:22] LABS: ALLEN TEST YES; BE -0.9 mmoll (-3.0-3.0); BLOOD TYPE ARTERIAL; HCO3-(ACT) 24.1 mmoll (20.0-26.0); O2(CT) 13.3 mL/dL (15.0-23.0); O2HB 92.6 % (95.0-99.0); PO2(98.6) 62 mmHg (60-100); SAMPLE BLOOD; SAO2 96.4 % (95.0-100.0); THB 10.2 g/dL (11.5-17.4); pH(98.6) 7.26 (7.35-7.45)
[2019-03-11 06:23] LABS: MODALITY BI PAP; PCO2(98.6) 60 mmHg (35-45)
[2019-03-11 06:50] LABS: EOS 3 % (1-10); LYMPHS 23 % (21-51); MONO 11 % (1-9); SEGS 63 % (42-75)
--- NOTE | 2019-03-11 07:04 | PROGRESS NOTE ---
DATE: 03/11/2019 SUBJECTIVE: The patient has been a little more oriented as per nursing staff. She is using a BiPAP mask, and she has been using it all night long. On the other side, there has been only 10 mL of pleural drainage during the last 12 hours. No other issues noted as per nursing staff overnight. OBJECTIVE: Vital Signs: Temperature 96.9, heart rate 60, respiratory rate 21, blood pressure 133/49, O2 saturation 98% on BiPAP at FiO2 of 40%. General: This is a chronically ill-appearing and morbidly obese, 83-year-old, female, lying in bed in no acute distress. Cardiovascular: S1, S2 heard. No murmurs, gallops, or rubs. Regular rate and rhythm. Respiratory: Decreased breath sounds on the left side. Basically, the same in comparing with yesterday. There is a pleural drainage catheter on the left side, connected to intermittent suction. Abdomen: Soft, a little bit distended, nontender to palpation. There are no signs of peritoneal irritation. Bowel sounds present. No organomegaly. Extremities: There is 1+ pitting edema in both lower extremities. No clubbing or cyanosis noted. Peripheral pulses present in both legs, but faint. Neurological: The patient is awake, using BiPAP. Follows commands. Moves all 4 extremities spontaneously. LABORATORY DATA: White cell count 11.75, hemoglobin 9.6, hematocrit 31.0, platelets 244,000. ABG is pending at the time of my dictation. ASSESSMENT AND PLAN: 1. Acute hypoxemic and hypercapnic respiratory failure. We do not have ABG from today, but from yesterday it still showed respiratory acidosis with pH of 7.26 with pCO2 of 59. Will check ABG today. Pulmonary following this patient. Will follow recommendations. 2. Empyema on the left side, status post percutaneous catheter placement. Unfortunately, during the last 48 hours, there has not been too much secretions. There has been, during the last 24 hours, 10 mL. On the day before yesterday, 30 mL of drainage. Because of anemia apparently of blood loss, tissue plasminogen activator has been held. She is not a candidate for any surgical procedure for this condition, according to Dr. Gonzalez. At this point, will continue to monitor this patient closely. Will follow recommendations from Pulmonary. 3. Sepsis secondary to bacteroides fragilis. The patient is on day [address] [facility]. Fernandes from Infectious Disease is following this patient. Will follow recommendations. 4. Chronic kidney disease stage 3. Creatinine continues to be at baseline. Will continue to monitor. 5. Anemia of chronic disease. Hemoglobin today is 9.9. There have not been any signs of bleeding. We have held heparin and aspirin yesterday. At this point, considering that hemoglobin is stable, will hold those medications one more day and see how she does. 6. Hypertension. Blood pressure is under control. Will continue with the same management. 7. Physical deconditioning. Unfortunately, because this patient is very sick, using bilevel positive airway pressure, I do not think she is a candidate for working with Physical Therapy at this point. 8. Disposition. The patient continues to be critically ill. With the empyema that we were not able to drain completely, not a surgical candidate. I am concerned that she has been here 24 days in the hospital. We are going to reconsult Palliative Care on Tuesday. Addendum: I was informed by nurse patient was having vaginal bleeding. Will order pelvic US and will go from there. Will monitor CBC daily. cc: Dat Jennings MD MTDD
--- NOTE | 2019-03-11 08:00 | Diag Imaging Result Doc PS360 ---
EXAM: CHEST-1 VIEW INDICATION: SOB TECHNIQUE: One view COMPARISON: 03/10/2019 FINDINGS: The left pleural drainage catheter is in stable position. The prominent left pleural fluid collection is approximately stable given slight differences in positioning. The smaller right pleural fluid collection is stable. Infiltrate throughout the left lung and at the right lower lung zone is approximately stable. No new consolidation is identified. Cardiac silhouette is stable. IMPRESSION: Essentially stable chest. Electronically signed by Bassam Stock 03/11/2019 7:58 AM
[2019-03-11] MEDS: ASPIRIN PO SCH (08:10)
[2019-03-11] MEDS: HEPARIN SUBQ SCH ×2 (08:11→20:04)
[2019-03-11] MEDS: NORVASC PO SCH ×2 (08:16→21:32)
[2019-03-11] MEDS: XOPENEX NEB INH SCH ×3 (09:03→21:10)
--- NOTE | 2019-03-11 10:07 | INFECTIOUS DISEASE PROGRESS NO ---
DATE: 03/11/2019 PRESENT ILLNESS: The patient has a Bacteroides pneumonia and left-sided empyema. MEDICATIONS: The patient has been treated with Zosyn now for 12 days. PHYSICAL EXAMINATION: Vital Signs: Temperature is 96.9 degrees, pulse 60, respirations 24, blood pressure 133/39. General: This is a morbidly obese, elderly female. She is wearing an oxygen mask. Head/eyes/ears/nose/throat: She can hear my spoken words and see near objects. She does not have any white coating of her tongue. Neck: No pain with movement. Lungs: Diminished breath sounds bilaterally. There were bilateral rhonchi. Cardiovascular: Heart rate is regular. Abdomen: Soft and nontender. Thorax: The patient has her left-sided upper back chest tube in place. Most of the fluid she is draining is sanguinous. Neurologic: The patient is awake. She is able to talk. She can move her extremities but she is very weak. Neurologic: The patient is lethargic. She did become fully awake when I started talking to her. She can move her extremities, but she is very weak. LAB AND X-RAY: Chest x-ray shows stable bilateral infiltrates and pleural fluid, although the left pleural effusion is much larger than the right. The patient's CBC shows a white count of 11,750, hemoglobin 9.6, platelet count is 244,000. Blood gases show a pH of 7.26, a PO2 of 62, and a pCO2 of 60. Creatinine is 1.7. GFR is 29. ASSESSMENT AND PLAN: Currently, the patient has a Bacteroides pneumonia and empyema. My plan is to continue with the Zosyn. When the patient can be switched to oral medications, I will put her on Augmentin. COMORBIDITIES: The patient is elderly and she is obese. She also has sleep apnea, gastroesophageal reflux disease, diabetes mellitus, chronic obstructive pulmonary disease, and the patient does have a history of cigarette smoking in the past. cc: MD Dat Sherwood MD
--- NOTE | 2019-03-11 10:11 | PROVIDER PROGRESS NOTE ---
Progress Note Dr. Acosta Progress Note/Pulmonary and or critical care We appreciated progress of care, Complications, change in diagnosis, and instructions to patient. Subjective: We note the level of consciousness, bed (chair) position, family presence (if any), level of lethargy, feeling of symptoms, and changes from baseline condition/symptom. The patient is lying in bed with a VM 50% on. Left chest tube in place with about 70 cc blooded drainage. RN at bedside reports about 10-15 cc drainage in 8 hours. Patient appears tired. She is having her breakfast. She denies any pain or cough. Objective: Vital Signs: We reviewed EMR current values for Pulse rate, Blood pressure, Pulse rate, respiratory rate and Pulse oximetry. Also noted other values and trends if present (e.g. I/O, CVP). T 97.0 (no fever in last 24 hours), OR 60, RR 24, BP 121/47 and SaO2 96% on VM 50%. I/O +90 ml Physical Examination: General: Appear tired. Lying in bed with no acute distress noted. HEENT: Normocephalic. Trachea midline. Chest: Mild tachypnea. Symmetrical excursion. Left-sided chest tube in place. Auscultation reveals diminished breathing sounds bilaterally with some rhonchi on Left upper lung zone. CVS: Regular rate and rhythm with S1 and S2 appreciated. Abdomen: Soft. Nontender. Nondistended. Normoactive bowel sounds in all 4 quadrants noted. Extremities: BLE and BUE edema 1+. No cyanosis. No clubbing. Neuro: A/O x3. Speech fluent. Follow simple commands. Labs and Radiology: Reviewed available labs and radiology values available at time of EMR review. Laboratory Results 03/10/19 03/11/19 03/11/19 22:05 05:00 05:00 WBC 11.75 H RBC 3.33 L Hgb 9.6 L Hct 31.0 L MCV 93.1 MCH 28.8 MCHC 31.0 L RDW Std Deviation 20.6 H Plt Count 244 MPV 12.3 H Immature Gran % (Auto) 1.0 H Neut % (Auto) 61.4 Lymph % (Auto) 21.8 [place] % (Auto) 12.1 H Eos % (Auto) 3.0 Baso % (Auto) 0.7 Immature Gran # (Auto) 0.12 H Neut # (Auto) 7.22 H Lymph # (Auto) 2.56 [place] # (Auto) 1.42 H Eos # (Auto) 0.35 Baso # (Auto) 0.08 Segmented Neutrophils 63 Lymphocytes 23 Monocytes 11 H Eosinophils 3 Specimen Type Sample Site pH pCO2 pO2 HCO3 Base Excess Oxyhemoglobin ABG O2 Sat (Calculated) ABG O2 Saturation ABG Carboxyhemoglobin ABG Methemoglobin Dariusz Test A-a O2 Difference Total Hemoglobin Lactate Blood Gas Modality Vent Mode FiO2 % Inspiratory BiPAP Expiratory BiPAP Sodium 144 Potassium 4.3 Chloride 108 H Carbon Dioxide 26 Anion Gap 10 BUN 40 H Creatinine 1.7 H Estimated GFR/1.73 m2 29 BUN/Creatinine Ratio 24 Glucose 89 POC Glucose 114 H Calculated Osmolality 296 Calcium 8.8 Phosphorus 3.6 Albumin 2.1 L 03/11/19 03/11/19 03/11/19 05:57 06:11 11:45 WBC RBC Hgb Hct MCV MCH MCHC RDW Std Deviation Plt Count MPV Immature Gran % (Auto) Neut % (Auto) Lymph % (Auto) [place] % (Auto) Eos % (Auto) Baso % (Auto) Immature Gran # (Auto) Neut # (Auto) Lymph # (Auto) [place] # (Auto) Eos # (Auto) Baso # (Auto) Segmented Neutrophils Lymphocytes Monocytes Eosinophils Specimen Type ARTERIAL Sample Site R RADIAL pH 7.26 L pCO2 60 H* pO2 62 HCO3 24.1 Base Excess -0.9 Oxyhemoglobin 92.6 L ABG O2 Sat (Calculated) 13.3 L ABG O2 Saturation 96.4 ABG Carboxyhemoglobin 2.90 H ABG Methemoglobin 1.0 Dariusz Test YES A-a O2 Difference 148.0 Total Hemoglobin 10.2 L Lactate 0.60 Blood Gas Modality BI PAP Vent Mode BIPAP FiO2 % 40.0 Inspiratory BiPAP 12.0 Expiratory BiPAP 5.0 Sodium Potassium Chloride Carbon Dioxide Anion Gap BUN Creatinine Estimated GFR/1.73 m2 BUN/Creatinine Ratio Glucose POC Glucose 89 157 H D Calculated Osmolality Calcium Phosphorus Albumin 03/11/19 15:34 WBC RBC Hgb Hct MCV MCH MCHC RDW Std Deviation Plt Count MPV Immature Gran % (Auto) Neut % (Auto) Lymph % (Auto) [place] % (Auto) Eos % (Auto) Baso % (Auto) Immature Gran # (Auto) Neut # (Auto) Lymph # (Auto) [place] # (Auto) Eos # (Auto) Baso # (Auto) Segmented Neutrophils Lymphocytes Monocytes Eosinophils Specimen Type Sample Site pH pCO2 pO2 HCO3 Base Excess Oxyhemoglobin ABG O2 Sat (Calculated) ABG O2 Saturation ABG Carboxyhemoglobin ABG Methemoglobin Dariusz Test A-a O2 Difference Total Hemoglobin Lactate Blood Gas Modality Vent Mode FiO2 % Inspiratory BiPAP Expiratory BiPAP Sodium Potassium Chloride Carbon Dioxide Anion Gap BUN Creatinine Estimated GFR/1.73 m2 BUN/Creatinine Ratio Glucose POC Glucose 134 H Calculated Osmolality Calcium Phosphorus Albumin Assessment: Empyema with worsening right pleural effusion. Left-sided chest tube initially placed on 03/06/19 and later reinsertion on 03/08/19. Clinically not improving. Acute hypoxemic and hypercapnic respiratory failure. Diastolic congestive heart failure. Chronic renal failure. Severe normocytic anemia. Plan: Continue current treatment and supportive care per admitting and other teams on the case. Supplemental oxygen and BiPAP as needed. Antibiotics (Zosyn) per Dr. Fernandes. Bronchodilators. Continue holding tPA and DNase. Dr. Moyer will be back tomorrow. Appropriate DVT and GI prophylaxis Input was appreciated from Admitting MD and other teams on the case. Evaluation time in minutes: 35 minutes.
--- NOTE | 2019-03-11 18:19 | Diag Imaging Result Doc PS360 ---
EXAM: US PELVIC NON-OB COMPLETE INDICATION: Vaginal bleeding TECHNIQUE: COMPARISON: None. FINDINGS: Neutral the right nor the left ovary were identified by the bulking machine operator. No solid adnexal masses or pelvic free fluid is identified. The uterus is also poorly visualized. As imaged, it appears to be grossly normal in echotexture measuring 8.5 x 4.0 x 3.0 cm. The endometrium measures approximately 2.6 mm in thickness. IMPRESSION: Nonvisualization of the ovaries. Unremarkable pelvic ultrasound, otherwise. Electronically signed by Bassam Stock 03/11/2019 6:17 PM
[2019-03-12] MEDS: ZOSYN 3.375 GM in NS 50 ML IV SCH ×4 (04:43→23:24)
[2019-03-12 05:27] LABS: ALLEN TEST YES; BE -0.8 mmoll (-3.0-3.0); BLOOD TYPE ARTERIAL; HCO3-(ACT) 24.2 mmoll (20.0-26.0); METHB 0.7 % (0.0-1.5); O2(CT) 13.2 mL/dL (15.0-23.0); O2HB 93.5 % (95.0-99.0); PO2(98.6) 65 mmHg (60-100); SAMPLE BLOOD; SAO2 96.5 % (95.0-100.0)
[2019-03-12 05:30] LABS: MODALITY BI PAP; PCO2(98.6) 53 mmHg (35-45)
[2019-03-12] MEDS: PROTONIX IV SCH (06:04)
[2019-03-12 06:05] LABS: ALBUMIN 2.2 g/dL (3.5-5.0); CALCIUM 8.8 mg/dL (8.8-10.2); CREATININE 1.6 mg/dL (0.5-0.9); PHOSPHORUS 3.1 mg/dL (2.7-4.5); POTASSIUM 3.9 mmol/L (3.5-5.1)
[2019-03-12] MEDS: HUMALOG SUBQ SCH ×4 (06:05→20:48)
--- NOTE | 2019-03-12 06:34 | Diag Imaging Result Doc PS360 ---
EXAM: CHEST-1 VIEW HISTORY: SOB TECHNIQUE: Single view COMPARISON: 03/11/2019 FINDINGS: Poor inspiratory effort. There are bilateral pleural effusions. The one on the left is slightly smaller. There is a left-sided chest tube. The heart is enlarged and there is pulmonary edema. There may be underlying infiltrates and there is also basilar atelectasis. IMPRESSION: Although the left pleural effusion is smaller, the other findings are more pronounced. Electronically signed by Gildardo Chávez 03/12/2019 6:32 AM
[2019-03-12 06:56] LABS: BASO# 0.12 X1000 (0.0-0.2); BASO% 1.1 % (0.0-0.8); EOS# 0.39 X1000 (0.0-0.7); EOS% 3.4 % (0.0-10.0); HEMATOCRIT 30.1 % (37.0-47.0); HEMOGLOBIN 9.2 g/dL (12.0-16.0); IMM GRAN% 0.9 % (0.0-0.5); LYMPH# 2.48 X1000 (1.2-3.4); LYMPH% 21.8 % (20.5-51.1); MCH 28.7 PG (27-31); MCHC 30.6 g/dL (33-37); MCV 93.8 FL (81-99); MONO# 1.36 X1000 (0.11-0.59); MONO% 11.9 % (1.7-9.3); MPV 12.2 FL (7.4-10.4); NEUT# 6.94 X1000 (1.4-6.5); NEUT% 60.9 % (42.2-75.2); PLT 234 X1000 (130-400); RBC 3.21 XMIL (4.2-5.4); RDW 20.9 % (11.5-14.5); WBC 11.39 X1000 (4.8-10.8)
--- NOTE | 2019-03-12 07:28 | PROGRESS NOTE ---
DATE: 03/12/2019 SUBJECTIVE: The patient is a little bit tachypneic for the last couple of days. He is a little bit confused to me this morning, although he answered basic questions appropriately. Apparently, over the last 24 hours there has been 80 mL of pleural drainage. OBJECTIVE: Vital Signs: Temperature 97.8 degrees, heart rate 61 respiratory rate 22, blood pressure 150/60, O2 saturation 93% on BiPAP mask. General Examination: This is a chronically ill-appearing, morbidly obese, 83-year-old female, lying in bed in no acute distress. Cardiovascular exam: S1, S2 heard. No murmurs, gallops, or rubs. Regular rate and rhythm. Respiratory exam: Decreased breath sounds on the left side, but in the right side are rhonchi all over that pulmonary field, basically the same in comparing with yesterday. There is a pleural drainage catheter in the left side connected to intermittent suction. The patient looks tachypneic to my examination. Abdomen: Soft. A little bit distended, but nontender to palpation. There is no signs of peritoneal irritation. Bowel sounds present. No organomegaly. Extremities: There is 1+ pitting edema in both lower extremities. No clubbing or cyanosis noted. Peripheral pulses present in both legs, but faint. Neurological exam: Patient is awake, using BiPAP. Follows commands. Moves 4 extremities spontaneously. LABORATORY DATA: Pending at the time of my dictation, but the ABG shows pH 7.30 with pCO2 of 53 and PO2 of 65. The renal function is stable with creatinine of 1.6, phosphorus 3.1. ASSESSMENT AND PLAN: 1. Acute hypoxemic and hypercapnic respiratory failure. Today, arterial blood gas shows better gas exchange, although not completely back to normal. We will continue with BiPAP. We will continue checking arterial blood gas on a daily basis. Pulmonary following this patient. We will follow recommendations. 2. Empyema on the left side status post percutaneous catheter placement. During the last 24 hours, the patient has 80 mL of pleural drainage. The patient is not a candidate for any further surgery for this condition. Pulmonary following this patient. We will follow recommendations. 3. Anemia of chronic disease versus blood loss. Hemoglobin is pending from yesterday. This is stable. Apparently, there was very mild vaginal bleeding. We have ordered a pelvic ultrasound, which did not show any acute abnormality. She has received so far 5 units of blood during her whole hospitalization, and 4 days ago she received three units in total. At this point, we will continue to monitor. 4. Hypertension. Blood pressure is under control. We will continue with the same management. 5. Sepsis secondary to Bacteroides fragilis. We will continue with Zosyn day #[address] Fernandes from Infectious Disease is managing antibiotics. 6. Physical deconditioning. Unfortunately, this patient is very sick to receive physical therapy. We will continue to monitor. 7. Disposition: Patient continues to be very ill. I think we need to re-consult Palliative Care Tuesday to establish goals of care in this patient. cc: Dat Jennings MD
[2019-03-12 07:44] LABS: BANDS 4 % (0-1); EOS 2 % (1-10); LYMPHS 16 % (21-51); MONO 2 % (1-9); SEGS 76 % (42-75)
[2019-03-12 07:45] LABS: HYPOCHROM 1+; LARGE PLATELETS 1+
[2019-03-12] MEDS: HEPARIN SUBQ SCH ×2 (08:21→21:05)
[2019-03-12] MEDS: ASPIRIN PO SCH (08:21)
[2019-03-12] MEDS: NORVASC PO SCH ×2 (08:21→20:48)
[2019-03-12] MEDS ORDERED: EPINEPHRINE SYRINGE IV ONE (08:40)
[2019-03-12] MEDS ORDERED: DIPRIVAN 1% 1,000 MG/100 ML BOTTLE ONE (08:52)
[2019-03-12] MEDS: DIPRIVAN 1% 1,000 MG/100 ML BOTTLE IV SCH ×3 (09:00→23:39)
--- NOTE | 2019-03-12 09:02 | Diag Imaging Result Doc PS360 ---
EXAM: CHEST-PORTABLE 03/12/2019 HISTORY: post code/ intubation TECHNIQUE: AP portable at 0850 COMMENT: There are bilateral pleural effusions. These have apparently improved since 03/12/2019 at 0556. There is an endotracheal tube with its tip approximately 4 cm above the arya. There is a pleural drain on the left. There is cardiomegaly. IMPRESSION: Apparently improved pleural effusions and pulmonary edema. Electronically signed by Justin Richards 03/12/2019 9:00 AM
--- NOTE | 2019-03-12 09:09 | INFECTIOUS DISEASE PROGRESS NO ---
DATE: 03/12/2019 PRESENT ILLNESS: The patient has a Bacteroides pneumonia and left-sided empyema. MEDICATIONS: The patient has been on Zosyn now for 13 days. PHYSICAL EXAMINATION: Vital Signs: Temperature is 98.2 degrees, pulse 72, respirations 27, blood pressure is 140/46. General: This is a morbidly obese, elderly female. She is wearing an oxygen mask. She is lethargic. HEENT: She was lethargic, and there was no drainage coming from her nose or ears. I did not see any white patches in her mouth. Neck: No apparent pain with movement of it. Lungs: Diminished breath sounds bilaterally. There were also bilateral rhonchi. Cardiovascular: Heart rate is irregular. Abdomen: Soft and nontender. Thorax: The patient has a left-sided upper back chest tube in place. There is not much in the way of drainage, and it is sanguinous in nature. Extremities: In the right groin, the patient has a triple-lumen catheter in place. The site is not erythematous or purulent. Neurologic: The patient was lethargic. There was no tremor. IMAGING AND LABORATORY DATA: The patient's CBC shows a white count of 11,390, hemoglobin 9.2, platelet count 234,000. Creatinine is 1.6. GFR is 31. Chest x-ray shows cardiomegaly, pulmonary edema, pleural effusion, and possible infiltrates. ASSESSMENT AND PLAN: The patient has Bacteroides pneumonia and empyema. I plan to continue Zosyn. If the patient gets better and can be discharged, I would switch her over to Augmentin by mouth. COMORBIDITIES: She is elderly and she is obese. She also has sleep apnea, gastroesophageal reflux disease, diabetes mellitus, chronic obstructive pulmonary disease, and the patient has a history of cigarette smoking. cc: MD Dat Sherwood MD
[2019-03-12] MEDS: XOPENEX NEB INH SCH ×3 (09:45→21:00)
[2019-03-12] MEDS: MORPHINE IV PRN (11:02)
--- NOTE | 2019-03-12 12:13 | PROGRESS NOTE ---
DATE: 03/12/2019 SUBJECTIVE: Around 8:30, I was called to the patient's room because apparently she developed a cardiac arrest. Apparently, as per nurse, the nurse was giving the patient sips of water, and the patient started coughing, and then her blood pressure and oxygen saturation started going down. Katt vang was called. The patient was provided chest compressions for about 3 to 4 minutes. She was given 1 amp of epinephrine, and blood pressure was in the range of 130s to 140s with heart rate in the 130s, so the patient was intubated emergently. The patient now is going to go to a ventilator. The patient has been started on Diprivan, although because of that lower blood pressure, we preferred her to use morphine and Ativan. I have talked personally with the daughter, who is at bedside, along with her , and she was informed about the very poor prognosis of her mom, considering that she has been in the hospital 25 days. After a long conversation, they decided to change the code status to DO NOT RESUSCITATE level 1. They were very specific not to have any more chest compressions on her. Niurka Fam, her nurse was with me at the time of the family making that decision. At this point, will continue to monitor this patient closely. Will inform Pulmonary about the current situation of this patient. TIME SPENT: Critical care time provided to this patient was 25 minutes. cc: Dat Jennings MD G[facility] HEALTHMatt
--- NOTE | 2019-03-12 13:16 | PULMONOLOGY PROGRESS NOTE ---
DATE: 03/12/2019 INTERIM HISTORY: The patient was drinking water earlier this morning. She choked on the water and subsequently had oxygen desaturation followed by cardiopulmonary arrest. Nurse reports she had approximately 7 minutes of CPR. The patient is on mechanical ventilation. She is arousable. She does nod yes to being in pain. OBJECTIVE: Vital Signs: Blood pressure 122/55, heart rate 75, respiratory rate 16, oxygen saturation 96% on mechanical ventilation. HEENT: Pupils are equal and reactive. Oropharynx appears clear. Neck: Supple. Chest: Reveals diminished breath sounds left greater than right base. Cardiac: S1-S2. Abdomen: Obese and soft. Extremities: Reveal 1+ peripheral edema. LABORATORIES: White blood count 11.39, hemoglobin 9.6, platelet count 234,000. Arterial blood gas this morning pH 7.30, pCO2 of 53, PO2 of 65. Sodium 144, potassium 3.9, chloride 108, bicarbonate 26, BUN 35, creatinine 1.6, glucose 93, chest x-ray reveals bilateral effusions, endotracheal tube in good position, mild improvement in the lung bases. IMPRESSION: An 83-year-old with: 1. Cardiopulmonary arrest with acute hypoxemic and acute hypercapnic respiratory failure. 2. Empyema status post chest tube placement and tPA/DNase installation. 3. Diastolic heart failure. 4. Chronic renal failure. DISCUSSION: Unfortunate 83-year-old white female with problems outlined above. She has had a cardiopulmonary arrest this morning, but mentally, she is arousable to alert and is following commands. Daughter is at the bedside. End of life discussions were held earlier this morning by Dr. Son. Please see his discussion. PLAN: 1. Continue full ventilatory support. 2. Check a sputum for Culture and Sensitivity. 3. Continue chest tube drainage, although the output appears to be decreased. 4. Overall prognosis remains poor. CRITICAL CARE: Spent in critical care management, 35 minutes cc: MD Dat Dietrich MD
--- NOTE | 2019-03-12 19:38 | GENERAL SURGERY PROGRESS NOTE ---
DATE: 03/12/2019 SUBJECTIVE: Patient apparently was intubated earlier after she had a cardiopulmonary arrest following what sounds like an aspiration after drinking water. Chest tube is in place. It is draining. OBJECTIVE: General: She is intubated and non-responsive. Cardiovascular: Normal rate. DIAGNOSTIC DATA: I reviewed her labs and her x-rays and her medical record. ASSESSMENT AND PLAN: A lady with an empyema and underlying lung disease. Apparently, she aspirated and coded this morning and has been intubated. Keep the tube to suction for now. We will continue to follow along. cc: MD Dat Weston MD
[2019-03-12] MEDS ORDERED: NS 0 ML ONE (21:04)
[2019-03-12] MEDS ORDERED: NS 500 ML IV SCH (22:45)
[2019-03-13] MEDS: MORPHINE IV PRN (04:40)
[2019-03-13] MEDS: ZOSYN 3.375 GM in NS 50 ML IV SCH ×4 (04:41→22:25)
[2019-03-13 05:05] LABS: ALLEN TEST YES; BE -1.9 mmoll (-3.0-3.0); BLOOD TYPE ARTERIAL; HCO3-(ACT) 23.4 mmoll (20.0-26.0); O2(CT) 14.7 mL/dL (15.0-23.0); O2HB 95.1 % (95.0-99.0); PCO2(98.6) 43 mmHg (35-45); PO2(98.6) 78 mmHg (60-100); SAMPLE BLOOD; SAO2 98.2 % (95.0-100.0); SRATE 16 BPM; THB 10.9 g/dL (11.5-17.4); TVOL 500 mL; pH(98.6) 7.35 (7.35-7.45)
[2019-03-13 05:06] LABS: MODALITY VENTILATOR
[2019-03-13 05:58] LABS: BASO# 0.14 X1000 (0.0-0.2); BASO% 1.2 % (0.0-0.8); EOS# 0.43 X1000 (0.0-0.7); EOS% 3.7 % (0.0-10.0); HEMATOCRIT 30.4 % (37.0-47.0); HEMOGLOBIN 9.4 g/dL (12.0-16.0); IMM GRAN# 0.14 X1000 (0.0-0.04); IMM GRAN% 1.2 % (0.0-0.5); LYMPH# 2.54 X1000 (1.2-3.4); LYMPH% 21.6 % (20.5-51.1); MCH 28.7 PG (27-31); MCHC 30.9 g/dL (33-37); MCV 92.7 FL (81-99); MONO# 1.18 X1000 (0.11-0.59); MPV 12.5 FL (7.4-10.4); NEUT# 7.33 X1000 (1.4-6.5); NEUT% 62.3 % (42.2-75.2); PLT 205 X1000 (130-400); RBC 3.28 XMIL (4.2-5.4); RDW 21.7 % (11.5-14.5); WBC 11.76 X1000 (4.8-10.8)
[2019-03-13 06:16] LABS: ALB/GLOB RATIO 0.5; ALBUMIN 2.1 g/dL (3.5-5.0); CALCIUM 8.6 mg/dL (8.8-10.2); CREATININE 2.1 mg/dL (0.5-0.9); POTASSIUM 4.2 mmol/L (3.5-5.1); TOTAL BILIRUBIN 0.52 mg/dL (0.20-1.00)
[2019-03-13 06:17] LABS: ALBUMIN 2.1 g/dL (3.5-5.0); CALCIUM 8.8 mg/dL (8.8-10.2); PHOSPHORUS 3.8 mg/dL (2.7-4.5); POTASSIUM 4.2 mmol/L (3.5-5.1)
[2019-03-13] MEDS: HUMALOG SUBQ SCH ×4 (06:39→21:24)
[2019-03-13] MEDS: PROTONIX IV SCH (06:42)
--- NOTE | 2019-03-13 07:29 | Diag Imaging Result Doc PS360 ---
CHEST-PORTABLE - 03/13/2019 INDICATION: respiratory failure COMPARISON: 03/12/2019 FINDINGS: Stable pleural drain in the left lung base. Stable endotracheal tube in good position at T4. There has been continued decrease in the small left pleural effusion. Stable small right pleural effusion. There is worsening diffuse pulmonary edema. Stable cardiomegaly. IMPRESSION: Worsening diffuse interstitial pulmonary edema. Electronically signed by Cristiano Lynn 03/13/2019 7:26 AM
[2019-03-13] MEDS: XOPENEX NEB INH SCH ×3 (07:47→21:42)
[2019-03-13] MEDS: HEPARIN SUBQ SCH ×2 (08:08→20:16)
[2019-03-13] MEDS: ASPIRIN PO SCH (08:24)
[2019-03-13] MEDS: NORVASC PO SCH ×2 (08:26→21:24)
--- NOTE | 2019-03-13 10:06 | INFECTIOUS DISEASE PROGRESS NO ---
DATE: 03/13/2019 PRESENT ILLNESS: The patient has a Bacteroides pneumonia and left-sided empyema. MEDICATIONS: This is the 14th day of treatment with Zosyn. PHYSICAL EXAMINATION: Vital Signs: Temperature is 97 degrees, pulse 51, respirations 17, blood pressure is 145/64. General: This is a morbidly obese, elderly female. She has been intubated. Head, Eyes, Ears, Nose, and Throat: The patient has an orotracheal tube in place. There is no drainage from her nose or ears. I did not get a very good view of her mouth. Neck: No stiffness. Lungs: There are diminished breath sounds. I heard some rhonchi on the right side and some wheezes on the left side. Cardiovascular: Heart rate is irregular. Abdomen: Soft and not tender. Thorax: The patient has a left upper back chest tube in place. Extremities: The patient has a triple-lumen catheter in the right groin. The site is not erythematous or purulent. Neurologic: The patient is sedated. She did not respond to verbal stimuli. LAB AND X-RAY: Chest x-ray shows worsening pulmonary edema. Sputum culture is negative. CBC shows a white count of 11,760, hemoglobin 9.4, platelet count 205,000. Blood gases show a pH of 7.35, a PO2 of 78, and a pCO2 of 43. The creatinine is 2.1. GFR is 23. ASSESSMENT AND PLAN: The patient has Bacteroides pneumonia and empyema. My plan is to continue with Zosyn. COMORBIDITIES: The patient is elderly and obese. She has sleep apnea, gastroesophageal reflux disease, diabetes mellitus, chronic obstructive pulmonary disease, and the patient has a history of cigarette smoking. cc: MD Dat Sherwood MD
--- NOTE | 2019-03-13 11:33 | PROGRESS NOTE ---
DATE: 03/13/2019 SUBJECTIVE: I have seen and examined Ms. Petersen today in the critical care unit. The daughter and the son-in-law were both at the bedside at the time of the encounter. Briefly, Ms. Petersen was admitted to the hospital on 02/15/2019. She initially presented to [place] because of generalized weakness, some nausea and vomiting, fatigue, shortness of breath. She was transferred to [facility] for a higher level of care. Ms. Petersen has been in the hospital since then. Today is day 26 of hospitalization. She seems to have been fairly stable. Had been treated for Bacteroides fragilis pneumonia with bacteremia and E. coli urinary tract infection. The repeat blood cultures have all been negative. I understand that yesterday she was sipping on water and ice chips, and she aspirated, bradycardic, and then arrested and had to resuscitated for about 3-4 minutes and intubated. She is currently on the ventilator, seems to be tolerating it well. OBJECTIVE: Vital Signs: Blood pressure is 145/64, pulse of 51, respirations are 17, temperature is 97.0 degrees. General Examination: Ms. Petersen is an 83-year-old, elderly, female. She is in bed. Currently intubated and sedated on propofol. HEENT: Mucosa is pink and moist. Anicteric. Acyanotic. Neck: Supple. No JVD. Chest: Air entry is bilaterally reduced. Some transmitted sounds from the ventilator. There are also some crackles. Cardiovascular: Regular but slightly bradycardic. No murmurs, no rubs, no gallops. GI: Abdomen is soft, distended. Bowel sounds are present. Extremities: About 3+ pedal edema. The patient has a left femoral central line. 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 She will, however, open her eyes to her name. She will show 2 fingers upon command. She will wiggle her toes upon command. The patient has a left side pigtail catheter in the chest posteriorly. Laboratory Data: WBC is 11.74, hemoglobin is 9.4, platelet count of 205,000. ABG is reviewed. For the most part, unremarkable. Chemistry is also reviewed. Sodium is 141, potassium is 4.2, chloride is 106, bicarb is 22, patient's creatinine is 2.1. So far, multiple repeat blood cultures and pleural cultures are negative. Imaging Studies: A chest x-ray this morning shows worsening diffuse interstitial pulmonary edema. Is and Os: Urine output was 400. The patient is currently positive balance of 4164. CURRENT MEDICATIONS: Include: 1. Aspirin. 2. Haldol p.r.n. 3. Heparin. 4. Xopenex. 5. Morphine with Ativan. 6. Protonix. 7. Zosyn. ASSESSMENT: 1. Status post cardiopulmonary arrest. Yesterday, the patient was resuscitated less than 5 minutes. There was return of spontaneous circulation. 2. Acute hypoxemic and hypercarbic respiratory failure. The patient continues to be on the ventilator. Pulmonary medicine is on board. 3. Bacteroides fragilis pneumonia complicated with empyema and bacteremia. The patient is on Zosyn. She also has a pigtail catheter in the left lung. Has been evaluated by surgery and has been deemed nonsurgical candidate. 4. Sepsis secondary to Bacteroides fragilis pneumonia. 5. Chronic kidney disease stage 3, noted. 6. Generalized weakness. 7. Escherichia coli urinary tract infection. This has been fully treated. 8. Resuscitation status. At this point, Ms. Petersen is Do Not Resuscitate level 1 but that was after she became intubated. The daughter and the son in law at the beds recommend to keep the endotracheal tube in place for now. However, if the patient becomes extubated at some point, they do not want her reintubated if she develops any subsequent respiratory difficulties. The palliative nurse was also at the bedside. cc: MD Dat Liu MD MTDD
[2019-03-13] MEDS: ALBUMIN 25% IV SCH (12:05)
[2019-03-13] MEDS: LASIX IV SCH (12:07)
[2019-03-13] MEDS: DIPRIVAN 1% 1,000 MG/100 ML BOTTLE IV SCH ×2 (14:53→22:50)
[2019-03-13] MEDS: NS NEB INH SCH ×2 (15:51→21:43)
--- NOTE | 2019-03-13 21:21 | PULMONOLOGY PROGRESS NOTE ---
DATE: 03/13/2019 SUBJECTIVE: The patient remains on mechanical ventilation. She appears to be comfortable. She has been afebrile for the last 24 hours. OBJECTIVE: Vital signs: Blood pressure 138/52, heart rate 53, respiratory rate 12, oxygen saturation 98%. HEENT: Pupils are equal and reactive. Oropharynx appears clear. Neck: Is supple. Chest: Reveals rhonchi bilaterally. Cardiac exam: S1, S2 with a decreased rate. Abdomen: Obese and soft. Extremities: Reveal trace to 1+ edema. LABORATORIES: Sodium 141, potassium 4.2, chloride 106, bicarbonate 22, BUN 39, creatinine 2.1, glucose 124. Chest x-ray reveals some improvement in the left base with mild worsening of pulmonary edema. Arterial blood gas reveals a pH 7.35, pCO2 43, PO2 of 78. IMPRESSION: An 83-year-old with 1. Empyema involving the left chest. 2. Diastolic heart failure. 3. Chronic renal failure. 4. Morbid obesity. 5. Acute hypoxemic respiratory failure. 6. Acute hypercapnic respiratory failure. 7. Status post cardiopulmonary arrest with good mentation following return of spontaneous circulation. PLAN: 1. Continue ventilatory support. Ventilator adjustments have been made. 2. Continue antibiotics under the direction of Dr. Lj Fernandes. 3. Continue chest tube drainage. 4. Overall prognosis is poor. We will attempt to begin weaning tomorrow. cc: MD Dat Dietrich MD
[2019-03-14] MEDS: DIPRIVAN 1% 1,000 MG/100 ML BOTTLE IV SCH ×4 (04:00→22:15)
[2019-03-14] MEDS: ZOSYN 3.375 GM in NS 50 ML IV SCH ×4 (04:00→22:53)
[2019-03-14 04:43] LABS: ALLEN TEST YES; BE -2.1 mmoll (-3.0-3.0); BLOOD TYPE ARTERIAL; HCO3-(ACT) 23.3 mmoll (20.0-26.0); METHB 0.6 % (0.0-1.5); O2(CT) 15.9 mL/dL (15.0-23.0); O2HB 97.1 % (95.0-99.0); PCO2(98.6) 44 mmHg (35-45); PO2(98.6) 115 mmHg (60-100); SAMPLE BLOOD; SAO2 99.4 % (95.0-100.0); SRATE 12 BPM; THB 11.5 g/dL (11.5-17.4); TVOL 600 mL; pH(98.6) 7.34 (7.35-7.45)
[2019-03-14 04:47] LABS: MODALITY VENTILATOR
[2019-03-14] MEDS: SODIUM CHLORIDE 0.9% INJ SCH (06:00)
[2019-03-14] MEDS: PROTONIX IV SCH (06:00)
[2019-03-14 06:07] LABS: ALB/GLOB RATIO 0.7; ALBUMIN 2.3 g/dL (3.5-5.0); CALCIUM 8.5 mg/dL (8.8-10.2); CREATININE 2.1 mg/dL (0.5-0.9); POTASSIUM 3.6 mmol/L (3.5-5.1); TOTAL BILIRUBIN 0.62 mg/dL (0.20-1.00); TOTAL PROTEIN 5.8 g/dL (6.3-8.3)
[2019-03-14] MEDS: HUMALOG SUBQ SCH ×4 (06:12→20:02)
[2019-03-14 06:14] LABS: BASO# 0.18 X1000 (0.0-0.2); BASO% 1.9 % (0.0-0.8); EOS# 0.69 X1000 (0.0-0.7); EOS% 7.4 % (0.0-10.0); HEMATOCRIT 26.8 % (37.0-47.0); HEMOGLOBIN 8.3 g/dL (12.0-16.0); IMM GRAN# 0.07 X1000 (0.0-0.04); IMM GRAN% 0.7 % (0.0-0.5); LYMPH# 2.32 X1000 (1.2-3.4); LYMPH% 24.8 % (20.5-51.1); MCH 28.6 PG (27-31); MCV 92.4 FL (81-99); MONO# 1.15 X1000 (0.11-0.59); MONO% 12.3 % (1.7-9.3); NEUT# 4.96 X1000 (1.4-6.5); NEUT% 52.9 % (42.2-75.2); PLT 150 X1000 (130-400); RDW 21.9 % (11.5-14.5); WBC 9.37 X1000 (4.8-10.8)
--- NOTE | 2019-03-14 07:36 | Diag Imaging Result Doc PS360 ---
EXAM: CHEST-PORTABLE HISTORY: respiratory failure TECHNIQUE: Single view COMPARISON: 03/13/2019 FINDINGS: No change in endotracheal tube or left-sided chest tube. There is a small left pleural effusion. No pneumothorax. Heart is enlarged and there is mild pulmonary edema. Tiny right pleural effusion. Persistent left basilar infiltrates and atelectasis. IMPRESSION: Slight improvement in the pulmonary edema. Electronically signed by Gildardo Chávez 03/14/2019 7:34 AM
[2019-03-14] MEDS: ALBUMIN 25% IV SCH (08:47)
[2019-03-14] MEDS: LASIX IV SCH (08:48)
[2019-03-14] MEDS: HEPARIN SUBQ SCH ×2 (08:48→20:02)
[2019-03-14] MEDS: ASPIRIN PO SCH (08:48)
[2019-03-14] MEDS: NORVASC PO SCH ×2 (08:49→22:14)
[2019-03-14] MEDS: XOPENEX NEB INH SCH ×3 (09:57→21:50)
[2019-03-14] MEDS: NS NEB INH SCH (09:58)
[2019-03-14] MEDS ORDERED: NS 50 ML ONE ×2 (11:24→12:41)
--- NOTE | 2019-03-14 11:53 | PROGRESS NOTE ---
DATE: 03/14/2019 SUBJECTIVE: I have seen and examined Ms. Petersen today. She continues to be in the Critical Care Unit. Both the daughter and the son-in-law were both at the bedside at the time of the encounter. Per the nursing staff, she has been fairly stable. OBJECTIVE: Vital signs: Blood pressure is 114/59, pulse of 50, respiration is 19, temperature is 96.4 degrees. Patient is saturating 100% on mechanical ventilation. General exam: Ms. Petersen is an 83-year-old elderly female. She is in bed, currently intubated and sedated on propofol. She is synchronizing well with the ventilator. Chest: There is good air entry bilateral. Some transmitted sounds from the ventilator, but no crackles. There is a pigtail catheter drain on the left side. Cardiovascular: Regular, slightly bradycardic. No murmurs, no rubs, no gallops. GI/Abdomen: Soft. Bowel sounds present. Extremities: About 1+ pedal edema. 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 She will withdrawal from painful stimulation. I understand from the nursing staff that whenever she is on the propofol, sedation is off. She will reach out very actively to get the tube out. Current. CURRENT LABORATORY DATA: WBC is 9.37, hemoglobin is 8.3, platelet count of 150. Chemistry is also reviewed. Creatinine remains at 2.1. The patient's intake/output: Urine output is 1195. The chest tube drain is 250. The patient's total balance is positive 3493. IMAGING STUDIES: A chest x-ray this morning shows slight improvement in the pulmonary edema. MEDICATIONS: Have all been reviewed. She continues to be on Zosyn 3.375. CULTURES: The sputum culture showing gram-negative. ASSESSMENT: 1. Status post cardiopulmonary arrest. 2. Acute hypoxemic and hypercarbic respiratory failure. Patient continues to be on the ventilator; today is day 2 on the ventilator. Pulmonary Medicine is on board. 3. Bacteroides fragilis pneumonia complicated with empyema and bacteremia. Patient is on Zosyn. The recent sputum culture is also showing a gram-negative leia, which hopefully the Zosyn will cover. The only concern is if this is an extended spectrum beta lactamase that has develop on top of the Zosyn, in which case carbapenem will be the ideal drug to be used. In any case, Infectious Disease is on board and will defer the recommendations to them. 4. Sepsis secondary to Bacteroides fragilis pneumonia. 5. Chronic kidney disease stage III-A to III-B. Creatinine remains fairly stable. Patient is making adequate urine. 6. Fluid overload. The patient is getting a combination of Lasix with albumin. 7. Generalized weakness. 8. Escherichia coli urinary tract infection. This has been fully treated. 9. Hypertension controlled on amlodipine. PLAN: So, in general, I think Ms. Petersen is doing a lot better. Her fluid status seems to be progressively getting better with the combination of the albumin with the Lasix. Creatinine has remained fairly the same. Her sputum is showing a gram-negative leia. She is currently on the Zosyn. Will be waiting on the ID and sensitivity of this gram-negative leia. The only concern will be if it is an ESBL. cc: Zheng Baugh MD
--- NOTE | 2019-03-14 13:04 | INFECTIOUS DISEASE PROGRESS NO ---
DATE: 03/14/2019 PRESENT ILLNESS: The patient has a Bacteroides pneumonia and left-sided empyema. MEDICATIONS: The patient has been on Zosyn now for 15 days. PHYSICAL EXAMINATION: Vital Signs: Temperature is 96.4 degrees, pulse 50, respirations 12, blood pressure 114/59. General: This is a morbidly obese elderly female. She is intubated. Head/Eyes/Ears/Nose/Throat: The patient has an orotracheal tube in place. There is no drainage from her nose or ears. Neck: No apparent pain with movement. Lungs: Clear to auscultation. Cardiovascular: The patient's heart rate is regular. Abdomen: Soft and apparently not tender. The patient has a right groin triple-lumen catheter in place. There is no erythema or purulence. Neurologic: The patient is obtunded. She did not respond to verbal stimuli. Thorax: The patient has a left back lower tube from the pleural cavity. LAB AND X-RAY: Chest x-ray shows left basilar infiltrate/atelectasis. Also, there is decrease in pulmonary edema. The patient's blood gases show a pH of 7.34, PO2 of 115, and pCO2 of 44. CBC shows a white blood cell count of 9370, hemoglobin 8.3, and platelet count 150,000. Creatinine is 2.1. GFR is 23. The patient's sputum is growing a gram-negative leia. ASSESSMENT AND PLAN: The patient has Bacteroides pneumonia and empyema. The patient has a gram- negative leia growing from her sputum. For now, I will continue Zosyn pending the identification and susceptibility of the gram-negative leia in the patient's sputum. COMORBIDITIES: The patient is elderly and obese. She also has sleep apnea, gastroesophageal reflux disease, diabetes mellitus, chronic obstructive pulmonary disease, and the patient has a history of prior cigarette smoking. cc: MD Zheng Sherwood MD
[2019-03-14 14:11] LABS: ANISOCYTOSIS 2+; BANDS 4 % (0-1); EOS 2 % (1-10); LARGE PLATELETS 2+; LYMPHS 32 % (21-51); MONO 8 % (1-9); SEGS 52 % (42-75)
--- NOTE | 2019-03-14 16:06 | Diag Imaging Result Doc PS360 ---
EXAM: CHEST-PORTABLE INDICATION: NG placement TECHNIQUE: One view COMPARISON: 03/14/2019 FINDINGS: There is a newly placed NG tube. The tip projects well below the diaphragm and is assumed to be in the lumen of the stomach in expected position. The ET tube is stable. Otherwise, the chest is unchanged. IMPRESSION: Newly placed NG tube tip projects below the diaphragm in the expected position. Electronically signed by Bassam Stock 03/14/2019 4:04 PM
--- NOTE | 2019-03-14 19:34 | PULMONOLOGY PROGRESS NOTE ---
DATE: 03/14/2019 SUBJECTIVE: The patient is sedated. She appears to be comfortable on mechanical ventilation. OBJECTIVE: Vital Signs: The patient has been afebrile for the last 24 hours. Blood pressure 114/59, heart rate 50, respiratory rate 14, oxygen saturation 100%. HEENT: Pupils are equal and reactive. Oropharynx appears clear. Neck: Is supple. Chest: Reveals diminished breath sounds at both lung bases. Chest tube remains in the left hemithorax. Cardiac exam: S1-S2. Abdomen: Is obese and soft. Extremities: Without edema. LABORATORIES: Chest x-ray reveals stable left basilar changes with small right- sided effusion. White blood count 9.37, hemoglobin 8.3, platelet count 150,000. Sodium 144, potassium 3.6, chloride 107, bicarbonate 22. BUN 41, creatinine 2.1. Arterial blood gas reveals a pH 7.34, pCO2 of 44, pO2 of 115. IMPRESSION: An 83-year-old with 1. Empyema involving the left chest. 2. Gram-negative organism identified in sputum. 3. Acute hypoxemic respiratory failure. 4. Acute hypercapnic respiratory failure. 5. Obesity. 6. Chronic renal failure. 7. Diastolic heart failure. 8. Status post cardiopulmonary arrest. PLAN: 1. Continue ventilator support. No adjustments will be made today. 2. CT scan of the thorax tomorrow to see if the left-sided chest tube can be removed. 3. Place NG tube and initiate tube feeds. 4. Overall prognosis is poor. She remains weak. Time spent in critical care management: 40 minutes cc: MD Zheng Dietrich MD MTDD
[2019-03-15] MEDS: DIPRIVAN 1% 1,000 MG/100 ML BOTTLE IV SCH ×4 (04:02→23:46)
[2019-03-15] MEDS: ZOSYN 3.375 GM in NS 50 ML IV SCH ×4 (04:27→23:47)
[2019-03-15 05:26] LABS: ALLEN TEST YES; BE -0.3 mmoll (-3.0-3.0); BLOOD TYPE ARTERIAL; HCO3-(ACT) 24.7 mmoll (20.0-26.0); METHB 2.3 % (0.0-1.5); O2HB 95.5 % (95.0-99.0); PCO2(98.6) 37 mmHg (35-45); PO2(98.6) 153 mmHg (60-100); SAMPLE BLOOD; SAO2 99.8 % (95.0-100.0); SRATE 12 BPM; THB 8.7 g/dL (11.5-17.4); TVOL 600 mL; pH(98.6) 7.42 (7.35-7.45)
[2019-03-15 05:30] LABS: MODALITY VENTILATOR
[2019-03-15 05:45] LABS: ALB/GLOB RATIO 0.9; ALBUMIN 2.7 g/dL (3.5-5.0); CALCIUM 8.6 mg/dL (8.8-10.2); CREATININE 2.1 mg/dL (0.5-0.9); POTASSIUM 3.6 mmol/L (3.5-5.1); TOTAL BILIRUBIN 0.55 mg/dL (0.20-1.00); TOTAL PROTEIN 5.8 g/dL (6.3-8.3)
[2019-03-15] MEDS: SODIUM CHLORIDE 0.9% INJ SCH (06:05)
[2019-03-15] MEDS: PROTONIX IV SCH (06:05)
[2019-03-15] MEDS: HUMALOG SUBQ SCH ×4 (06:11→21:38)
--- NOTE | 2019-03-15 06:43 | Diag Imaging Result Doc PS360 ---
CHEST-PORTABLE - 03/15/2019 INDICATION: respiratory failure COMPARISON: 03/14/2019 FINDINGS: Support tubes are stable and in good position. Stable cardiomegaly and pulmonary vascular congestion. Stable drain in the left lung base. Stable small right and small to moderate left pleural effusion. Stable background interstitial pulmonary edema. IMPRESSION: No change from prior. Electronically signed by Cristiano Lynn 03/15/2019 6:41 AM
[2019-03-15 06:59] LABS: BASO# 0.09 X1000 (0.0-0.2); BASO% 0.9 % (0.0-0.8); EOS% 6.7 % (0.0-10.0); HEMATOCRIT 27.7 % (37.0-47.0); HEMOGLOBIN 8.5 g/dL (12.0-16.0); IMM GRAN# 0.09 X1000 (0.0-0.04); IMM GRAN% 0.9 % (0.0-0.5); LYMPH% 17.2 % (20.5-51.1); MCH 28.5 PG (27-31); MCHC 30.7 g/dL (33-37); MONO# 1.13 X1000 (0.11-0.59); MONO% 10.8 % (1.7-9.3); MPV 13.1 FL (7.4-10.4); NEUT# 6.65 X1000 (1.4-6.5); NEUT% 63.5 % (42.2-75.2); PLT 131 X1000 (130-400); RBC 2.98 XMIL (4.2-5.4); RDW 21.7 % (11.5-14.5); WBC 10.46 X1000 (4.8-10.8)
--- NOTE | 2019-03-15 07:55 | Diag Imaging Result Doc PS360 ---
EXAM: CT THORAX W/O CONTRAST INDICATION: f/u empyema TECHNIQUE: This exam was performed using automated exposure control, adjustment of mA or kV according to patient size, and/or use of iterative reconstruction technique. COMPARISON: 03/08/2019 FINDINGS: The known empyema on the left has decreased in size status post placement of a left pleural drainage catheter during the interval. However, it is still moderate in size. There is a moderate-sized right pleural effusion that appears slightly smaller than previous study. Bilateral atelectasis has improved slightly. There is persistent consolidation in the left lower lobe. Pulmonary emphysema is again noted. There is a loculated collection of complex fluid that appears to be in the anterior lower mediastinum that can be seen on image 91 of series 2. It is stable to slightly smaller as compared to the last two prior studies. An abscess cannot be excluded. Limited views of the upper abdomen reveals a small amount of ascites tracking around the liver. IMPRESSION: 1.Interval decrease in the left empyema but it is still moderate in size. 2.Marginal decrease in right pleural effusion. 3.Nonspecific complex fluid collection that appears to be at the anteroinferior aspect of the mediastinum that is stable to marginally smaller. Abscess cannot be excluded. Electronically signed by Bassam Stock 03/15/2019 7:53 AM
[2019-03-15] MEDS: HEPARIN SUBQ SCH (09:07)
[2019-03-15] MEDS: ALBUMIN 25% IV SCH (09:07)
[2019-03-15] MEDS: LASIX IV SCH (09:07)
[2019-03-15] MEDS: ASPIRIN PO SCH (09:08)
[2019-03-15] MEDS: NORVASC PO SCH ×2 (09:08→21:39)
[2019-03-15] MEDS: NS NEB INH SCH ×2 (09:31→15:35)
[2019-03-15] MEDS: XOPENEX NEB INH SCH ×3 (09:31→21:23)
--- NOTE | 2019-03-15 10:27 | INFECTIOUS DISEASE PROGRESS NO ---
DATE: 03/15/2019 PRESENT ILLNESS: The patient has a Bacteroides pneumonia and left-sided empyema. Most recently, she has developed a superimposed pulmonary infection with Enterobacter. The patient has diarrhea. MEDICATIONS: The patient is in her 16th day of treatment with Zosyn. Day 1 was the first day that the patient's blood cultures were sterile. PHYSICAL EXAMINATION: Vital Signs: Temperature is 96.5 degrees, pulse 53, respirations 14, blood pressure 95/48. General: This is a morbidly obese, elderly female. She is intubated and sedated. HEENT: The patient has an orotracheal tube in place. I could not get a good look in her mouth to see if she had any oral candidiasis. Neck: No stiffness. Lungs: Bilateral rhonchi. Cardiovascular: Heart rate is regular. Abdomen: Soft and does not appear to be tender. The patient has, in the right groin, a triple-lumen catheter in place. The site is not purulent or erythematous. Neurologic: The patient is obtunded as mentioned above. She does not respond to verbal stimuli. Thorax: The patient has a drain in the left back. The drain is to the pleural cavity. IMAGING AND LABORATORY DATA: Chest x-ray shows pulmonary vascular congestion and bilateral pleural effusions. Chest CT scan has just been finished, but the results are not present of it currently. The patient's blood gases show a pH of 7.42, a PO2 of 153, a pCO2 of 37. Creatinine is 2.1. GFR is 23. Liver function studies are normal. Sputum culture grew Enterobacter. ASSESSMENT AND PLAN: The patient has Bacteroides and Enterobacter pneumonia and Bacteroides empyema. My plan is to continue Zosyn pending the results of the CT scan of the chest. I am ordering stool for C diff antigen and toxin. COMORBIDITIES: The patient is elderly. She is morbidly obese. She has sleep apnea, gastroesophageal reflux disease, diabetes mellitus, chronic obstructive pulmonary disease, and the patient has a history of cigarette smoking. cc: MD Zheng Sherwood MD MTDD
--- NOTE | 2019-03-15 12:42 | GENERAL SURGERY PROGRESS NOTE ---
DATE: 03/15/2019 SUBJECTIVE: She remains on the ventilator on relatively low settings. Hemodynamically, she has been stable. She has a drain in her left hemothorax showing persistent purulent drainage. She had a CT scan obtained that shows the pigtail drain that is difficult to tell, but appears to be in the subcutaneous tissue. She does have a persistent small loculated effusion. OBJECTIVE: General: On exam she is mechanically intubated. She has a feeding tube in her nose. Abdomen: Her abdomen is soft. Skin: Her skin is warm and dry. Extremities: She does seem to be moving her upper extremities. LABS: White count is 10, hematocrit is 27. ABG was reviewed. Creatinine is 2.1. ASSESSMENT AND PLAN: This is an 83-year-old female with multiple issues. She had a code event related to an aspiration. She is now mechanically ventilated. She had a left chest tube in place, percutaneous drain. The empyema has reduction in size. We will continue current management. Grim prognosis. Had numerous conversations with her family members about this, and they agree with the plan of care. cc: MD Zheng Weston MD
--- NOTE | 2019-03-15 14:54 | PROGRESS NOTE ---
DATE: 03/15/2019 SUBJECTIVE: I have seen and examined Ms. Petersen today. She continues to be in the Critical Care Unit also intubated. Per the nursing staff night was uneventful. It has been noted that Ms. Petersen has been having dark tarry black stool, watery. Rectus sheath was put in yesterday and she has been having remarkable output. She continues to be very responsive when she is on sedation vacation. OBJECTIVE: Vital signs: Blood pressure is 117/41, pulse of 51 respiration is temperature is 96.1 degrees. The patient is saturating 96% on mechanical ventilation. General: Ms. Petersen is an 83- year-old elderly female. She is in bed this is, currently intubated, sedated on propofol. HEENT: Mucosa is pink and moist. Anicteric. Acyanotic. Neck: Supple. Chest: Good air entry bilateral. Some transmitted sounds from the ventilator. There is a pigtail catheter on the left posterior hemithorax. Cardiovascular: Regular rate and rhythm. No murmurs, no rubs, no gallops. GI: Abdomen soft. Bowel sounds present. Extremities: Trace pedal edema. 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 She will withdrawal from painful stimuli. LABORATORY DATA: WBC is 10.46, hemoglobin is 8.5, platelet count of 131,000. Chemistry is also reviewed. Sodium is 147, potassium is 3.6, chloride is 107, bicarb is 23, BUN is 21, BUN is 41, creatinine is 2.1 same as yesterday. The patient's in's and out's: Urine output urine output was 1195. Patient is currently positive balance of 3493. The chest tube is documented to have 250 output. IMAGING STUDIES: This morning, chest x-ray shows stable cardiomegaly, pulmonary vascular congestion. There is stable right and small to moderate left pleural effusion on background of interstitial edema. A CT scan of the chest shows interval decrease in the left empyema that is still moderate in size. There is marginal decrease in the right pleural effusion. There is a nonspecific complex fluid collection that appears to be at the anterior inferior aspect of the mediastinum that is stable to marginal smaller abscess cannot be entirely excluded. The sputum culture is now showing Enterobacter cloacae complex. ASSESSMENT: 1. Status post cardiopulmonary arrest. 2. Acute hypoxemic and hypercarbic respiratory failure. Patient continues to be on the ventilator, today is day 3. Pulmonary Medicine is on board. 3. Multifocal pneumonia complicated with empyema and bacteremia. The patient is on Zosyn. The recent sputum culture showed Enterobacter cloacae complex, which is sensitive to the antimicrobial that she is on. 4. Sepsis on presentation, complicated with Bacteroides fragilis bacteremia. Subsequent blood cultures have been negative. 5. Chronic kidney disease stage 3 A to B. Creatinine is stable. 6. Fluid overload is improving. 7. Generalized weakness. 8. Escherichia coli urinary tract infection. The patient has been treated. 9. Hypertension controlled on amlodipine. 10. Dark tarry black stool, concerning for gastrointestinal bleed. Hemoglobin is fairly stable. Patient is on proton pump inhibitor. In general Ms. Petersen seems to be doing fairly stable, continues to be remarkably critical. She is still in the Critical Care Unit. Her recent sputum culture has grown Enterobacter cloacae, which is sensitive to the Zosyn. The patient is being seen by multiple subspecialties. We will continue with the recommendations from them. cc: Zheng Baugh MD Critical Time 45 minutes [facility]
--- NOTE | 2019-03-15 15:11 | PULMONOLOGY PROGRESS NOTE ---
DATE: 03/15/2019 SUBJECTIVE: Nursing reports patient is arousable when propofol is decreased, but she starts biting on tube. Tube feeds are in progress, but she is having increased residuals. OBJECTIVE: Vital Signs: The patient has been afebrile for the last 24 hours and is borderline hypothermic. Blood pressure 117/41, heart rate 51, respiratory rate 12, oxygen saturation 96%. HEENT: Pupils are equal and reactive. Oropharynx appears clear. Neck: Neck is supple. Chest: Reveals diminished breath sounds both lung bases. Cardiac exam: S1, S2. Abdomen: Obese and soft. Extremities: Reveal trace to 1+ peripheral edema. LABORATORIES/RADIOLOGY: CT scan of the thorax reveals some decrease in effusions bilaterally, but moderate effusion persists on the left with pigtail catheter in position. Sputum culture is revealing Enterobacter cloacae complex, which is sensitive to Zosyn. White blood count 10.46, hemoglobin 8.5, platelet count 131,000. Arterial blood gas reveals a pH 7.42, pCO2 of 37, PO2 of 153. Sodium 147, potassium 3.6, chloride 107, bicarbonate 23. BUN 41, creatinine 2.1. IMPRESSION: An 83-year-old with: 1. Empyema. 2. Gram-negative pneumonia. 3. Hypoxemic respiratory failure. 4. Hypercapnic respiratory failure. 5. Obesity. 6. Chronic renal failure. 7. Diastolic heart failure. 8. Status post cardiopulmonary arrest. DISCUSSION: An 83-year-old with problems outlined above. Clinically she is improving, but she failed her weaning trial this morning. PLAN: 1. Continue current ventilator settings. 2. Daily vent weaning as tolerated. 3. Continue tube feeds as tolerated. 4. Prognosis is guarded. End of life discussions have been held, and she is a do not resuscitate level 1 if she fails extubation. TIME SPENT IN CRITICAL CARE MANAGEMENT: 35 minutes. cc: MD Zheng Dietrich MD
[2019-03-16 05:08] LABS: ALLEN TEST YES; BE 1.5 mmoll (-3.0-3.0); BLOOD TYPE ARTERIAL; HCO3-(ACT) 26.1 mmoll (20.0-26.0); METHB 0.9 % (0.0-1.5); O2(CT) 13.9 mL/dL (15.0-23.0); O2HB 96.3 % (95.0-99.0); PCO2(98.6) 47 mmHg (35-45); PO2(98.6) 109 mmHg (60-100); SAMPLE BLOOD; SAO2 99.4 % (95.0-100.0); SRATE 12 BPM; THB 10.1 g/dL (11.5-17.4); TVOL 600 mL; pH(98.6) 7.37 (7.35-7.45)
[2019-03-16 05:12] LABS: MODALITY VENTILATOR
[2019-03-16] MEDS: DIPRIVAN 1% 1,000 MG/100 ML BOTTLE IV SCH ×3 (05:50→19:17)
[2019-03-16] MEDS: ZOSYN 3.375 GM in NS 50 ML IV SCH ×3 (05:50→17:49)
[2019-03-16] MEDS: PROTONIX IV SCH ×2 (05:51→06:35)
[2019-03-16] MEDS: HUMALOG SUBQ SCH ×4 (06:34→21:23)
[2019-03-16 06:35] LABS: BASO# 0.11 X1000 (0.0-0.2); BASO% 1.1 % (0.0-0.8); EOS# 0.61 X1000 (0.0-0.7); EOS% 5.8 % (0.0-10.0); HEMATOCRIT 24.5 % (37.0-47.0); HEMOGLOBIN 7.5 g/dL (12.0-16.0); IMM GRAN# 0.11 X1000 (0.0-0.04); IMM GRAN% 1.1 % (0.0-0.5); LYMPH# 1.61 X1000 (1.2-3.4); LYMPH% 15.4 % (20.5-51.1); MCH 28.7 PG (27-31); MCHC 30.6 g/dL (33-37); MCV 93.9 FL (81-99); MONO# 1.46 X1000 (0.11-0.59); MPV 13.8 FL (7.4-10.4); NEUT# 6.54 X1000 (1.4-6.5); NEUT% 62.6 % (42.2-75.2); PLT 116 X1000 (130-400); RBC 2.61 XMIL (4.2-5.4); RDW 22.1 % (11.5-14.5); WBC 10.44 X1000 (4.8-10.8)
--- NOTE | 2019-03-16 06:42 | Diag Imaging Result Doc PS360 ---
CHEST-PORTABLE - 03/16/2019 INDICATION: respiratory failure COMPARISON: 03/15/2019 FINDINGS: Stable pleural drain in the left lung base. Stable endotracheal tube and nasogastric tube in good position. There is been slight decrease in the left basilar opacification/effusion. Slight improvement in the right pleural effusion. Stable cardiomegaly and pulmonary vascular congestion. IMPRESSION: Slight improvement in the lung bases bilaterally. Electronically signed by Cristiano Lynn 03/16/2019 6:40 AM
[2019-03-16 06:53] LABS: ESTIMATED GFR 23
[2019-03-16 07:00] LABS: AGAP 15; ALB/GLOB RATIO 0.8; ALBUMIN 2.7 g/dL (3.5-5.0); ALKALINE PHOSPHATASE 72 U/L (32-104); BUN 44 mg/dL (8-22); CHLORIDE 107 mmol/L (98-107); COSMO 304; CREATININE 2.1 mg/dL (0.5-0.9); GLUCOSE 142 mg/dL (70-104); GOT 10 U/L (10-30); GPT < 5 U/L (10-36); POTASSIUM 3.4 mmol/L (3.5-5.1); SODIUM 146 mmol/L (136-145); TCO2 24 mmol/L (25-35); TOTAL BILIRUBIN 0.51 mg/dL (0.20-1.00); TOTAL PROTEIN 5.9 g/dL (6.3-8.3)
[2019-03-16 08:24] LABS: BANDS 8 % (0-1); EOS 2 % (1-10); LYMPHS 10 % (21-51); MONO 8 % (1-9); SEGS 72 % (42-75)
[2019-03-16] MEDS: XOPENEX NEB INH SCH ×3 (08:24→21:20)
[2019-03-16] MEDS: NS NEB INH SCH ×2 (08:24→15:39)
[2019-03-16 08:28] LABS: HYPOCHROM 1+
[2019-03-16 08:29] LABS: ANISOCYTOSIS 2+
[2019-03-16] MEDS: LASIX IV SCH (10:10)
[2019-03-16] MEDS: NORVASC PO SCH ×2 (10:11→21:23)
[2019-03-16] MEDS: ASPIRIN PO SCH (10:12)
[2019-03-16 10:17] LABS: ALLEN TEST YES; BE 2.4 mmoll (-3.0-3.0); BLOOD TYPE ARTERIAL; HCO3-(ACT) 26.8 mmoll (20.0-26.0); O2(CT) 11.1 mL/dL (15.0-23.0); O2HB 93.4 % (95.0-99.0); PO2(98.6) 69 mmHg (60-100); SAMPLE BLOOD; SAO2 96.9 % (95.0-100.0); THB 8.4 g/dL (11.5-17.4)
[2019-03-16 10:22] LABS: MODALITY VENTILATOR
[2019-03-16 10:23] LABS: PCO2(98.6) 60 mmHg (35-45)
[2019-03-16] MEDS: ALBUMIN 25% IV SCH (11:36)
--- NOTE | 2019-03-16 14:53 | PROVIDER PROGRESS NOTE ---
Progress Note Dr. Acosta Progress Note/Pulmonary and or critical care We appreciated progress of care, Complications, change in diagnosis, and instructions to patient. Subjective: We note the level of consciousness, bed (chair) position, family presence (if any), level of lethargy, feeling of symptoms, and changes from baseline condition/symptom. The patient is lying in bed on AC support. Left chest tube in place. Family at bedside. Objective: Vital Signs: We reviewed EMR current values for Pulse rate, Blood pressure, Pulse rate, respiratory rate and Pulse oximetry. Also noted other values and trends if present (e.g. I/O, CVP). T 98 (no fever in last 24 hours), [place] 64 , RR 12, BP 123/44 and SaO2 94% on AC Physical Examination: General: Appear tired. Lying in bed with no acute distress noted. HEENT: Normocephalic. Trachea midline. Chest: Mild tachypnea. Symmetrical excursion. Left-sided chest tube in place. Auscultation reveals diminished breathing sounds bilaterally, crackles on right with decreased entry on Left upper lung zone. CVS: Regular rate and rhythm with S1 and S2 appreciated. Abdomen: Soft. Nontender. Nondistended. Normoactive bowel sounds in all 4 quadrants noted. Extremities: BLE and BUE edema 1+. No cyanosis. No clubbing. Neuro: A/O x3. Sedated. Management, face to face evaluation by Dr. Acosta. MARIA VICTORIA did scribing only. Labs and Radiology: Reviewed available labs and radiology values available at time of EMR review. Laboratory Results 03/15/19 03/15/19 03/16/19 16:11 21:38 04:30 WBC RBC Hgb Hct MCV MCH MCHC RDW Std Deviation Plt Count MPV Immature Gran % (Auto) Neut % (Auto) Lymph % (Auto) [place] % (Auto) Eos % (Auto) Baso % (Auto) Immature Gran # (Auto) Neut # (Auto) Lymph # (Auto) [place] # (Auto) Eos # (Auto) Baso # (Auto) Segmented Neutrophils Band Neutrophils Lymphocytes Monocytes Eosinophils Hypochromia Anisocytosis Specimen Type Sample Site pH pCO2 pO2 HCO3 Base Excess Oxyhemoglobin ABG O2 Sat (Calculated) ABG O2 Saturation ABG Carboxyhemoglobin ABG Methemoglobin Dariusz Test A-a O2 Difference Total Hemoglobin Lactate Blood Gas Modality Spontaneous Rate FiO2 % Tidal Volume PEEP Pressure Support CPAP Sodium 146 H Potassium 3.4 L Chloride 107 Carbon Dioxide 24 L Anion Gap 15 BUN 44 H Creatinine 2.1 H Estimated GFR/1.73 m2 23 BUN/Creatinine Ratio 21 Glucose 142 H POC Glucose 120 H 127 H Calculated Osmolality 304 Calcium 8.0 L Total Bilirubin 0.51 AST 10 ALT < 5 L Alkaline Phosphatase 72 Total Protein 5.9 L Albumin 2.7 L Globulin 3.2 Albumin/Globulin Ratio 0.8 03/16/19 03/16/19 03/16/19 04:30 04:57 05:58 WBC 10.44 RBC 2.61 L Hgb 7.5 L Hct 24.5 L MCV 93.9 MCH 28.7 MCHC 30.6 L RDW Std Deviation 22.1 H Plt Count 116 L MPV 13.8 H Immature Gran % (Auto) 1.1 H Neut % (Auto) 62.6 Lymph % (Auto) 15.4 L [place] % (Auto) 14.0 H Eos % (Auto) 5.8 Baso % (Auto) 1.1 H Immature Gran # (Auto) 0.11 H Neut # (Auto) 6.54 H Lymph # (Auto) 1.61 [place] # (Auto) 1.46 H Eos # (Auto) 0.61 Baso # (Auto) 0.11 Segmented Neutrophils 72 Band Neutrophils 8 H Lymphocytes 10 L Monocytes 8 Eosinophils 2 Hypochromia 1+ Anisocytosis 2+ Specimen Type ARTERIAL Sample Site R RADIAL pH 7.37 pCO2 47 H pO2 109 H HCO3 26.1 H Base Excess 1.5 Oxyhemoglobin 96.3 ABG O2 Sat (Calculated) 13.9 L ABG O2 Saturation 99.4 ABG Carboxyhemoglobin 2.20 ABG Methemoglobin 0.9 Dariusz Test YES A-a O2 Difference 117.0 Total Hemoglobin 10.1 L Lactate 1.20 Blood Gas Modality VENTILATOR Spontaneous Rate 12 FiO2 % 40.0 Tidal Volume 600 PEEP 5.0 Pressure Support CPAP Sodium Potassium Chloride Carbon Dioxide Anion Gap BUN Creatinine Estimated GFR/1.73 m2 BUN/Creatinine Ratio Glucose POC Glucose 129 H Calculated Osmolality Calcium Total Bilirubin AST ALT Alkaline Phosphatase Total Protein Albumin Globulin Albumin/Globulin Ratio 03/16/19 03/16/19 10:10 10:58 WBC RBC Hgb Hct MCV MCH MCHC RDW Std Deviation Plt Count MPV Immature Gran % (Auto) Neut % (Auto) Lymph % (Auto) [place] % (Auto) Eos % (Auto) Baso % (Auto) Immature Gran # (Auto) Neut # (Auto) Lymph # (Auto) [place] # (Auto) Eos # (Auto) Baso # (Auto) Segmented Neutrophils Band Neutrophils Lymphocytes Monocytes Eosinophils Hypochromia Anisocytosis Specimen Type ARTERIAL Sample Site R RADIAL pH 7.30 L pCO2 60 H* pO2 69 HCO3 26.8 H Base Excess 2.4 Oxyhemoglobin 93.4 L ABG O2 Sat (Calculated) 11.1 L ABG O2 Saturation 96.9 ABG Carboxyhemoglobin 2.50 ABG Methemoglobin 1.0 Dariusz Test YES A-a O2 Difference 213.0 Total Hemoglobin 8.4 L Lactate 0.90 Blood Gas Modality VENTILATOR Spontaneous Rate FiO2 % 50.0 Tidal Volume PEEP Pressure Support 5.00 CPAP 5.0 Sodium Potassium Chloride Carbon Dioxide Anion Gap BUN Creatinine Estimated GFR/1.73 m2 BUN/Creatinine Ratio Glucose POC Glucose 164 H Calculated Osmolality Calcium Total Bilirubin AST ALT Alkaline Phosphatase Total Protein Albumin Globulin Albumin/Globulin Ratio Assessment: Empyema with worsening right pleural effusion. Left-sided chest tube initially placed on 03/06/19 and later reinsertion on 03/08/19. Clinically not improving. Acute hypoxemic and hypercapnic respiratory failure. Diastolic congestive heart failure. Chronic renal failure. Severe normocytic anemia. Plan: Continue current treatment and supportive care per admitting and other teams on the case. Continue AC. Discussion with family members about patient's prognosis Antibiotics (Zosyn) per Dr. Fernandes. Bronchodilators. Appropriate DVT and GI prophylaxis Input was appreciated from Admitting MD and other teams on the case. Evaluation time in minutes: 33 minutes.
--- NOTE | 2019-03-16 15:26 | INFECTIOUS DISEASE PROGRESS NO ---
DATE: 03/16/2019 PRESENT ILLNESS: The patient has a Bacteroides pneumonia and left-sided empyema. She also has a superimposed pulmonary infection with Enterobacter. The patient has diarrhea, but she tested negative for Clostridium difficile antigen and toxin. MEDICATIONS: This is the 17th day of treatment with Zosyn. PHYSICAL EXAMINATION: Vital Signs: Temperature is 98.2 degrees, pulse 58, respirations 16, blood pressure 121/43. General: This is a morbidly obese, elderly female. She is intubated and sedated. Head/eyes/ears/nose/throat: She has an oral tracheal and a nasogastric tube in place. There is no drainage from her nose or ears. Neck: Not stiff. Lungs: Bilateral rhonchi. Cardiovascular: Heart rate is regular. Abdomen: Soft and not tender. In the right groin the patient has a double-lumen catheter in place. The site is not erythematous or purulent. Neurologic: The patient is obtunded. She did not respond to verbal stimuli. Thorax: The patient has a chest tube placed in the left side of the back. LAB AND X-RAY: Chest x-ray shows a decrease in the patient's infiltrate and pleural effusion. Liver function studies are [place] [address], hemoglobin 7.5, and platelet count 116,000. Blood gasses show a pH 7.37, a PO2 of 109, a pCO2 of 47, creatinine is 2.1. GFR is 23. As mentioned above stool for Clostridium difficile toxin and antigen is negative. ASSESSMENT AND PLAN: The patient has Bacteroides and Enterobacter pneumonia and Bacteroides empyema. My plan is to continue with Zosyn. COMORBIDITIES: The patient is elderly and she is morbidly obese. She has sleep apnea, gastroesophageal reflux disease, diabetes mellitus, chronic obstructive pulmonary disease, and a history of cigarette smoking. cc: MD Zheng Sherwood MD
--- NOTE | 2019-03-16 19:37 | PROGRESS NOTE ---
DATE: 03/16/2019 SUBJECTIVE: This morning Ms. Petersen referred to be doing well. Ms. Petersen is seen in the critical care unit. She continues to be intubated. Per the nursing staff, she did a breathing trial; however, after an hour she started to desaturate. The repeat blood gases did show that her pCO2 had gone up to 60 from 46 this morning. She had to be put back on full mechanical ventilation. OBJECTIVE: Vital signs: Blood pressure is 123/44, pulse of 63, respiration is 12, temperature is 98 degrees. The patient is saturating 94% on mechanical ventilation. On general exam, Ms. Petersen is an 83-year-old elderly female. She is in bed, intubated. Synchronizing well with the ventilator. Mucosa is pink and moist. Anicteric. Acyanotic. Neck is supple. Chest: There is good air entry bilateral. Cardiovascular: Regular rate and rhythm. GI: Abdomen was soft. Bowel sounds were present. Extremities: Trace pedal edema. 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 She will, however, open her eyes to painful stimulation. The patient's intake and output: Urine output was 1360. She is still positive balance of 3273. DIAGNOSTIC DATA: Imaging studies show some slight improvement in the lung bases bilaterally. MEDICATIONS: Current medications have all been reviewed. The patient continues to be on Zosyn. ASSESSMENT: 1. Status post cardiopulmonary arrest. 2. Acute hypoxemic and hypercarbic respiratory failure. The patient continues to be on a ventilator. Today is day 4. She underwent spontaneous breathing trial. Unfortunately, she did not do well. She is back on full mechanical ventilation. 3. Multifocal pneumonia, complicated with empyema and bacteremia. The patient is on Zosyn. She also has a pigtail catheter into the left pleural space. Sputum culture has grown Enterobacter cloacae complex. 4. Sepsis complicated with Bacteroides fragilis bacteremia. Subsequent blood cultures have been negative. 5. Chronic kidney disease stage 3A to B. Creatinine is stable. 6. Fluid overload. The patient is getting a combination of albumin with Lasix. 7. Dark tarry black stool concerning for gastrointestinal bleed. The patient's hemoglobin dipped down to 7.5 today. We are still going to be keeping an eye on this. If it goes any further down we are going to transfuse again. 8. Escherichia coli urinary tract infection, treated. 9. Anemia of multifactorial etiology. The patient has had a total of 5 packed red blood cells transfusion. Her fecal occult blood test was positive, which is concerning for gastrointestinal bleed. We will get Gastroenterology to evaluate her at some point during the hospital course. cc: Zheng Baugh MD
--- NOTE | 2019-03-16 20:51 | GENERAL SURGERY PROGRESS NOTE ---
DATE: 03/16/2019 SUBJECTIVE: Clinically she remains about the same, on the ventilator, not really responsive. OBJECTIVE: On exam, she is alert. She is on the ventilator on moderate settings. The left drain in her chest is putting out persistence sanguinopurulent purulent material. There is no air leak. Her integument is otherwise warm and dry. White count remains normal at 10. ABG shows worsening respiratory acidosis. Creatinine remains elevated at 2.1. ASSESSMENT AND PLAN: An 83-year-old female with left pleural effusion consistent with empyema. She has a percutaneous drain in place. This seems to be doing an adequate job of draining this collection, although she remains critically ill following what sounds like an aspiration event. We will follow along. I have spoken with the family. cc: MD Zheng Weston MD
[2019-03-17] MEDS: DIPRIVAN 1% 1,000 MG/100 ML BOTTLE IV SCH ×4 (02:13→23:29)
[2019-03-17 05:34] LABS: ALLEN TEST YES; BE 2.2 mmoll (-3.0-3.0); BLOOD TYPE ARTERIAL; HCO3-(ACT) 26.6 mmoll (20.0-26.0); METHB 0.9 % (0.0-1.5); O2(CT) 10.6 mL/dL (15.0-23.0); O2HB 95.7 % (95.0-99.0); PCO2(98.6) 44 mmHg (35-45); PO2(98.6) 82 mmHg (60-100); SAMPLE BLOOD; SAO2 99.3 % (95.0-100.0); SRATE 12 BPM; THB 7.8 g/dL (11.5-17.4); TVOL 600 mL
[2019-03-17 05:37] LABS: MODALITY VENTILATOR
[2019-03-17] MEDS: ZOSYN 3.375 GM in NS 50 ML IV SCH ×6 (06:00→23:28)
[2019-03-17] MEDS: PROTONIX IV SCH (06:20)
[2019-03-17] MEDS: HUMALOG SUBQ SCH ×4 (06:20→23:29)
[2019-03-17 06:46] LABS: BASO# 0.11 X1000 (0.0-0.2); BASO% 0.9 % (0.0-0.8); EOS# 0.62 X1000 (0.0-0.7); EOS% 4.9 % (0.0-10.0); HEMATOCRIT 23.7 % (37.0-47.0); HEMOGLOBIN 7.2 g/dL (12.0-16.0); IMM GRAN# 0.16 X1000 (0.0-0.04); IMM GRAN% 1.3 % (0.0-0.5); LYMPH# 2.22 X1000 (1.2-3.4); LYMPH% 17.5 % (20.5-51.1); MCH 28.6 PG (27-31); MCHC 30.4 g/dL (33-37); MONO# 1.59 X1000 (0.11-0.59); MONO% 12.5 % (1.7-9.3); MPV 13.3 FL (7.4-10.4); NEUT# 7.97 X1000 (1.4-6.5); NEUT% 62.9 % (42.2-75.2); PLT 128 X1000 (130-400); RBC 2.52 XMIL (4.2-5.4); RDW 22.3 % (11.5-14.5); WBC 12.67 X1000 (4.8-10.8)
--- NOTE | 2019-03-17 07:00 | Diag Imaging Result Doc PS360 ---
EXAM: CHEST-PORTABLE HISTORY: respiratory failure TECHNIQUE: Single view COMPARISON: 03/16/2019 FINDINGS: No change in the endotracheal tube or nasogastric tubes. There is a left-sided chest tube which is unchanged. Heart is mildly enlarged. There is vascular distention. There are small bilateral pleural effusions. No pneumothorax. There is basilar atelectasis and there may be underlying infiltrates. IMPRESSION: No interval improvement Electronically signed by Gildardo Chávez 03/17/2019 6:57 AM
[2019-03-17 07:02] LABS: ESTIMATED GFR 21
[2019-03-17 07:27] LABS: AGAP 15; ALB/GLOB RATIO 1.1; ALBUMIN 3.2 g/dL (3.5-5.0); ALKALINE PHOSPHATASE 72 U/L (32-104); BUN 48 mg/dL (8-22); CALCIUM 8.4 mg/dL (8.8-10.2); CHLORIDE 108 mmol/L (98-107); COSMO 310; CREATININE 2.2 mg/dL (0.5-0.9); GLUCOSE 121 mg/dL (70-104); GOT 11 U/L (10-30); GPT < 5 U/L (10-36); POTASSIUM 3.4 mmol/L (3.5-5.1); SODIUM 149 mmol/L (136-145); TCO2 26 mmol/L (25-35); TOTAL BILIRUBIN 0.58 mg/dL (0.20-1.00)
[2019-03-17] MEDS: XOPENEX NEB INH SCH ×3 (08:03→21:35)
[2019-03-17] MEDS ORDERED: NS 500 ML IV ONE (08:09)
[2019-03-17] MEDS: ASPIRIN PO SCH (09:08)
[2019-03-17] MEDS: NORVASC PO SCH ×2 (09:08→23:28)
[2019-03-17 09:50] LABS: ANISOCYTOSIS 1+; BANDS 1 % (0-1); EOS 5 % (1-10); HYPOCHROM 1+; LARGE PLATELETS 1+; LYMPHS 19 % (21-51); MICROCYTOSIS 1+; MONO 10 % (1-9); POLYCHROM 1+; SEGS 65 % (42-75)
[2019-03-17 10:11] LABS: ALLEN TEST YES; BE -0.6 mmoll (-3.0-3.0); BLOOD TYPE ARTERIAL; HCO3-(ACT) 24.3 mmoll (20.0-26.0); METHB 1.2 % (0.0-1.5); O2HB 90.6 % (95.0-99.0); PO2(98.6) 64 mmHg (60-100); SAMPLE BLOOD; SAO2 94.2 % (95.0-100.0); THB 13.3 g/dL (11.5-17.4); pH(98.6) 7.28 (7.35-7.45)
[2019-03-17 10:14] LABS: MODALITY VENTILATOR; PCO2(98.6) 58 mmHg (35-45)
--- NOTE | 2019-03-17 14:19 | PROGRESS NOTE ---
DATE: 03/17/2019 SUBJECTIVE: I have seen and examined Ms. Petersen. This morning she continues to be under the vent. No new changes. Per the nursing staff, the night was uneventful. The night nurse refer there was 1 time that the patient's O2 saturation went down, but then it came right back up. OBJECTIVE: Vital signs: Blood pressure is 137/49, pulse of 60, respirations 12, temperature is 99.1 degrees. Patient is saturating 97% on 40% of FiO2 on the ventilator. General examination: Ms. Petersen is an 83-year-old female. She is in bed currently intubated, synchronizing well with the ventilator. HEENT: Mucosa is pink and moist. Anicteric. Acyanotic. Neck: Supple. Chest: Air entry is bilaterally reduced. A few crackles posteriorly. There is a pigtail catheter on the left hemithorax. Cardiovascular: Regular rate and rhythm. GI/Abdomen: Soft. Bowel sounds present. Extremities: Trace pedal edema. There is some edema also on the upper thigh and the lateral aspect of the abdominal wall. Central nervous system: Patient is intubated and sedated on propofol. She will grimace to painful stimulation and withdraw to pain. INTAKE/OUTPUT: The patient's urine output is 855. She is currently positive balance of 4194. LABORATORY DATA: WBC is 12.67, hemoglobin is 7.5, platelet count of 128. Chemistry is also reviewed. Sodium is 149, potassium is 3.4, chloride is 108, bicarbonate is 26. BUN is 48, creatinine is 2.2. ASSESSMENT: 1. Status post cardiopulmonary arrest. 2. Acute hypoxemic and hypercarbic respiratory failure. Patient is day 5 on the ventilator. 3. Multifocal pneumonia complicated with empyema and bacteremia. The patient continues to be on Zosyn. There is a pigtail catheter in the left pleural space. Sputum culture has grown Enterobacter cloacae complex, which is sensitive to the Zosyn. 4. Severe sepsis on presentation complicated with Bacteroides fragilis bacteremia. Subsequent blood cultures have been negative. 5. Chronic kidney disease, stage IIIA-IIIB. 6. Fluid overload. The patient is getting a combination of Lasix with albumin. 7. Gastrointestinal bleed. Hemoglobin has dropped down to 7.2. Fecal occult blood testing was positive. We are going to go ahead and give the patient a unit of blood transfusion. She has had 5 total early on during the hospital course. 8. Escherichia coli urinary tract infection. That has been treated. 9. Anemia of multifactorial etiology, including possible gastrointestinal bleed. cc: Zheng Baugh MD
--- NOTE | 2019-03-17 16:39 | PROVIDER PROGRESS NOTE ---
Progress Note Progress Note Dr. Acosta Progress Note/Pulmonary and or critical care We appreciated progress of care, Complications, change in diagnosis, and instructions to patient. Subjective: We note the level of consciousness, bed (chair) position, family presence (if any), level of lethargy, feeling of symptoms, and changes from baseline condition/symptom. The patient is lying in bed on AC support. Left chest tube in place. Family at bedside. Objective: Vital Signs: We reviewed EMR current values for Pulse rate, Blood pressure, Pulse rate, respiratory rate and Pulse oximetry. Also noted other values and trends if present (e.g. I/O, CVP). T 97.2 (no fever in last 24 hours), ID 58 , RR 12, BP 113/53 and SaO2 93% on AC Physical Examination: General: Lying in bed with no acute distress noted. On mechanical ventilation, family at bedside. HEENT: Normocephalic. Atraumatic. Trachea midline. ETT in place. Chest: Mild tachypnea. Symmetrical excursion. Left-sided chest tube in place. Auscultation reveals diminished breathing sounds bilaterally, crackles on right with decreased entry on Left upper lung zone. CVS: Regular rate and rhythm with S1 and S2 appreciated. Abdomen: Soft. Nontender. Nondistended. Normoactive bowel sounds in all 4 quadrants noted. Extremities: BLE and BUE edema 1+. No cyanosis. No clubbing. Neuro: Sedated. Management, face to face evaluation by Dr. Acosta. MARIA VICTORIA Morin did scribing only. Labs and Radiology: Reviewed available labs and radiology values available at time of EMR review. Laboratory Results 03/09/19 03/16/19 03/17/19 06:00 20:37 04:30 WBC RBC Hgb Hct MCV MCH MCHC RDW Std Deviation Plt Count MPV Immature Gran % (Auto) Neut % (Auto) Lymph % (Auto) [place] % (Auto) Eos % (Auto) Baso % (Auto) Immature Gran # (Auto) Neut # (Auto) Lymph # (Auto) [place] # (Auto) Eos # (Auto) Baso # (Auto) Segmented Neutrophils Band Neutrophils Lymphocytes Monocytes Eosinophils Hypochromia Large Platelets Polychromasia Anisocytosis Microcytosis Macrocytosis Specimen Type Sample Site pH pCO2 pO2 HCO3 Base Excess Oxyhemoglobin ABG O2 Sat (Calculated) ABG O2 Saturation ABG Carboxyhemoglobin ABG Methemoglobin Dariusz Test A-a O2 Difference Total Hemoglobin Lactate Blood Gas Modality Vent Mode Spontaneous Rate FiO2 % Tidal Volume PEEP Inspiratory BiPAP Expiratory BiPAP Sodium 149 H Potassium 3.4 L Chloride 108 H Carbon Dioxide 26 Anion Gap 15 BUN 48 H Creatinine 2.2 H Estimated GFR/1.73 m2 21 BUN/Creatinine Ratio 22 Glucose 121 H POC Glucose 144 H D Calculated Osmolality 310 Calcium 8.4 L Total Bilirubin 0.58 AST 11 ALT < 5 L Alkaline Phosphatase 72 Total Protein 6.0 L Albumin 3.2 L Globulin 2.8 Albumin/Globulin Ratio 1.1 Blood Type Antibody Screen Crossmatch ([facility]G) See Detail 03/17/19 03/17/19 03/17/19 04:30 04:40 05:46 WBC 12.67 H RBC 2.52 L Hgb 7.2 L Hct 23.7 L MCV 94.0 MCH 28.6 MCHC 30.4 L RDW Std Deviation 22.3 H Plt Count 128 L MPV 13.3 H Immature Gran % (Auto) 1.3 H Neut % (Auto) 62.9 Lymph % (Auto) 17.5 L [place] % (Auto) 12.5 H Eos % (Auto) 4.9 Baso % (Auto) 0.9 H Immature Gran # (Auto) 0.16 H Neut # (Auto) 7.97 H Lymph # (Auto) 2.22 [place] # (Auto) 1.59 H Eos # (Auto) 0.62 Baso # (Auto) 0.11 Segmented Neutrophils 65 Band Neutrophils 1 Lymphocytes 19 L Monocytes 10 H Eosinophils 5 Hypochromia 1+ Large Platelets 1+ Polychromasia 1+ Anisocytosis 1+ Microcytosis 1+ Macrocytosis 1+ Specimen Type ARTERIAL Sample Site R RADIAL pH 7.40 pCO2 44 pO2 82 HCO3 26.6 H Base Excess 2.2 Oxyhemoglobin 95.7 ABG O2 Sat (Calculated) 10.6 L ABG O2 Saturation 99.3 ABG Carboxyhemoglobin 2.70 H ABG Methemoglobin 0.9 Dariusz Test YES A-a O2 Difference 148.0 Total Hemoglobin 7.8 L Lactate 1.10 Blood Gas Modality VENTILATOR Vent Mode A/C Spontaneous Rate 12 FiO2 % 40.0 Tidal Volume 600 PEEP 5.0 Inspiratory BiPAP Expiratory BiPAP Sodium Potassium Chloride Carbon Dioxide Anion Gap BUN Creatinine Estimated GFR/1.73 m2 BUN/Creatinine Ratio Glucose POC Glucose 110 H Calculated Osmolality Calcium Total Bilirubin AST ALT Alkaline Phosphatase Total Protein Albumin Globulin Albumin/Globulin Ratio Blood Type Antibody Screen Crossmatch ([facility]) 03/17/19 03/17/19 03/17/19 09:32 10:00 12:09 WBC RBC Hgb Hct MCV MCH MCHC RDW Std Deviation Plt Count MPV Immature Gran % (Auto) Neut % (Auto) Lymph % (Auto) [place] % (Auto) Eos % (Auto) Baso % (Auto) Immature Gran # (Auto) Neut # (Auto) Lymph # (Auto) [place] # (Auto) Eos # (Auto) Baso # (Auto) Segmented Neutrophils Band Neutrophils Lymphocytes Monocytes Eosinophils Hypochromia Large Platelets Polychromasia Anisocytosis Microcytosis Macrocytosis Specimen Type ARTERIAL Sample Site R RADIAL pH 7.28 L pCO2 58 H* pO2 64 HCO3 24.3 Base Excess -0.6 Oxyhemoglobin 90.6 L ABG O2 Sat (Calculated) 17.0 ABG O2 Saturation 94.2 L ABG Carboxyhemoglobin 2.60 H ABG Methemoglobin 1.2 Dariusz Test YES A-a O2 Difference 149.0 Total Hemoglobin 13.3 Lactate 1.00 Blood Gas Modality VENTILATOR Vent Mode Spontaneous Rate FiO2 % 40.0 Tidal Volume PEEP Inspiratory BiPAP 5.0 Expiratory BiPAP 5.0 Sodium Potassium Chloride Carbon Dioxide Anion Gap BUN Creatinine Estimated GFR/1.73 m2 BUN/Creatinine Ratio Glucose POC Glucose 133 H Calculated Osmolality Calcium Total Bilirubin AST ALT Alkaline Phosphatase Total Protein Albumin Globulin Albumin/Globulin Ratio Blood Type B NEGATIVE Antibody Screen NEGATIVE Crossmatch ([facility]) See Detail 03/17/19 16:39 WBC RBC Hgb Hct MCV MCH MCHC RDW Std Deviation Plt Count MPV Immature Gran % (Auto) Neut % (Auto) Lymph % (Auto) [place] % (Auto) Eos % (Auto) Baso % (Auto) Immature Gran # (Auto) Neut # (Auto) Lymph # (Auto) [place] # (Auto) Eos # (Auto) Baso # (Auto) Segmented Neutrophils Band Neutrophils Lymphocytes Monocytes Eosinophils Hypochromia Large Platelets Polychromasia Anisocytosis Microcytosis Macrocytosis Specimen Type Sample Site pH pCO2 pO2 HCO3 Base Excess Oxyhemoglobin ABG O2 Sat (Calculated) ABG O2 Saturation ABG Carboxyhemoglobin ABG Methemoglobin Dariusz Test A-a O2 Difference Total Hemoglobin Lactate Blood Gas Modality Vent Mode Spontaneous Rate FiO2 % Tidal Volume PEEP Inspiratory BiPAP Expiratory BiPAP Sodium Potassium Chloride Carbon Dioxide Anion Gap BUN Creatinine Estimated GFR/1.73 m2 BUN/Creatinine Ratio Glucose POC Glucose 118 H Calculated Osmolality Calcium Total Bilirubin AST ALT Alkaline Phosphatase Total Protein Albumin Globulin Albumin/Globulin Ratio Blood Type Antibody Screen Crossmatch (AHG) Assessment: Empyema with worsening right pleural effusion. Left-sided chest tube initially placed on 03/06/19 and later reinsertion on 03/08/19. Clinically not improving. Acute hypoxemic and hypercapnic respiratory failure. Diastolic congestive heart failure. Chronic renal failure. Severe normocytic anemia. Plan: Continue current treatment and supportive care per admitting and other teams on the case. Continue AC. Will titrate per patient response and protocol. Will titrate sedation (Diprovan) per patient responses and protocol. Discussion with family members about patient's prognosis Antibiotics (Zosyn) per Dr. Fernandes. Bronchodilators. Appropriate DVT and GI prophylaxis Input was appreciated from Admitting MD and other teams on the case. Evaluation time in minutes: 36 minutes.
[2019-03-18] MEDS: DIPRIVAN 1% 1,000 MG/100 ML BOTTLE IV SCH (05:12)
[2019-03-18] MEDS: ZOSYN 3.375 GM in NS 50 ML IV SCH ×3 (05:12→17:28)
[2019-03-18] MEDS: PROTONIX IV SCH ×2 (05:14→06:13)
[2019-03-18 05:44] LABS: ALLEN TEST YES; BE 1.1 mmoll (-3.0-3.0); BLOOD TYPE ARTERIAL; HCO3-(ACT) 25.7 mmoll (20.0-26.0); O2(CT) 11.7 mL/dL (15.0-23.0); O2HB 92.6 % (95.0-99.0); PCO2(98.6) 49 mmHg (35-45); PO2(98.6) 65 mmHg (60-100); SAMPLE BLOOD; SAO2 96.4 % (95.0-100.0); SRATE 12 BPM; THB 8.9 g/dL (11.5-17.4); TVOL 600 mL; pH(98.6) 7.35 (7.35-7.45)
[2019-03-18 05:45] LABS: MODALITY VENTILATOR
[2019-03-18] MEDS: HUMALOG SUBQ SCH ×3 (06:12→16:26)
[2019-03-18 06:28] LABS: BASO# 0.11 X1000 (0.0-0.2); BASO% 0.7 % (0.0-0.8); EOS# 0.87 X1000 (0.0-0.7); EOS% 5.9 % (0.0-10.0); HEMOGLOBIN 8.7 g/dL (12.0-16.0); IMM GRAN# 0.14 X1000 (0.0-0.04); IMM GRAN% 0.9 % (0.0-0.5); LYMPH# 2.23 X1000 (1.2-3.4); LYMPH% 15.1 % (20.5-51.1); MCH 29.1 PG (27-31); MCHC 31.1 g/dL (33-37); MCV 93.6 FL (81-99); MONO# 1.75 X1000 (0.11-0.59); MONO% 11.8 % (1.7-9.3); NEUT# 9.67 X1000 (1.4-6.5); NEUT% 65.6 % (42.2-75.2); PLT 162 X1000 (130-400); RBC 2.99 XMIL (4.2-5.4); RDW 21.4 % (11.5-14.5); WBC 14.77 X1000 (4.8-10.8)
[2019-03-18 06:47] LABS: ALB/GLOB RATIO 0.8; ALBUMIN 2.8 g/dL (3.5-5.0); CALCIUM 8.6 mg/dL (8.8-10.2); POTASSIUM 3.4 mmol/L (3.5-5.1); TOTAL BILIRUBIN 0.49 mg/dL (0.20-1.00); TOTAL PROTEIN 6.3 g/dL (6.3-8.3)
--- NOTE | 2019-03-18 07:17 | Diag Imaging Result Doc PS360 ---
EXAM: CHEST-PORTABLE 03/18/2019 HISTORY: respiratory failure TECHNIQUE: AP portable at 0535 COMMENT: The pigtail drain in the left pleural space is again noted. There continue to be pleural fluid collections bilaterally. There is interstitial pulmonary edema. There is cardiomegaly. There is an NG tube with its tip in the stomach. There is an endotracheal tube with its tip slightly below the thoracic inlet. IMPRESSION: Essentially stable since 03/17/2019. Electronically signed by Justin Richards 03/18/2019 7:15 AM
[2019-03-18] MEDS: XOPENEX NEB INH SCH ×2 (08:03→16:45)
[2019-03-18] MEDS ORDERED: D5W 1,000 ML IV SCH (08:15)
[2019-03-18] MEDS: ASPIRIN PO SCH (08:55)
[2019-03-18] MEDS: NORVASC PO SCH (08:56)
[2019-03-18 10:24] LABS: ALLEN TEST YES; BE 0.6 mmoll (-3.0-3.0); BLOOD TYPE ARTERIAL; HCO3-(ACT) 25.3 mmoll (20.0-26.0); METHB 1.1 % (0.0-1.5); O2HB 92.6 % (95.0-99.0); PO2(98.6) 69 mmHg (60-100); SAMPLE BLOOD; SAO2 96.5 % (95.0-100.0); THB 10.7 g/dL (11.5-17.4); pH(98.6) 7.32 (7.35-7.45)
[2019-03-18 10:27] LABS: MODALITY VENTILATOR; PCO2(98.6) 53 mmHg (35-45)
--- NOTE | 2019-03-18 12:23 | PROGRESS NOTE ---
DATE: 03/18/2019 SUBJECTIVE: This morning, Ms. Petersen is seen. She is going through spontaneous breathing trial. She seems to be pretty comfortable under the ventilator during the trial. OBJECTIVE: Current Vital Signs: Blood pressure is 121/45, pulse of 84, respirations 25, temperature 99 degrees, the patient is saturating 96%. General: Ms. Petersen is an 83-year-old, elderly, female. She is under the ventilator. She seems very comfortable. HEENT: Mucosa is pink and moist. Anicteric. Acyanotic. Neck: Supple. Chest: Good air entry bilaterally. I did not hear any crackles or rhonchi. Cardiovascular: Regular rate and rhythm. No murmurs, no rubs, no gallops. There is a pigtail catheter in the left lateral hemithorax. GI: Abdomen is soft, distended, but nontender. Bowel sounds present. Extremities: No pedal edema. BAKERY CHEF: The patient was awake and alert. She follows basic commands. She was able to show me 2 fingers upon command. LABORATORY DATA: WBC is 14.77, hemoglobin is 8.7, platelet count of 162,000. Chemistry is also reviewed. Sodium is up to 150, potassium is 3.4, chloride is 109, creatinine is 2.0. IMAGING STUDIES: Chest x-ray shows essentially stable. ASSESSMENT: 1. Status post cardiopulmonary arrest. 2. Acute hypoxemic and hypercarbic respiratory failure. The patient is day 6 on the ventilator. She is currently going through a spontaneous breathing trial. 3. Multifocal pneumonia complicated with empyema and bacteremia. The patient is on Zosyn. Pigtail catheter is in the left pleural space. Sputum culture positive for Enterobacter cloacae. The patient is on Zosyn. 4. Severe sepsis on presentation, complicated with Bacteroides fragilis bacteremia. Subsequent blood cultures have been negative. 5. Chronic kidney disease stage 3A to B, stable. 6. Fluid overload, resolved. 7. Gastrointestinal bleed. Hemoglobin is up to 8.7. The patient is status post 6 packed red blood cells transfusion during the hospital course. 8. Escherichia coli urinary tract infection, resolved. 9. Anemia, stable. 10. Hypernatremia, presumably from over-diuresis the patient is getting. We have started the patient on D5 at 50 mL for 24 hours to correct her electrolyte abnormality. cc: Zheng Baugh MD
--- NOTE | 2019-03-18 17:12 | INFECTIOUS DISEASE PROGRESS NO ---
DATE: 02/15/2019 PRESENT ILLNESS: The patient has a Bacteroides and Enterobacter pneumonia and a Bacteroides empyema. MEDICATIONS: This is the 19th day of treatment with Zosyn. PHYSICAL EXAMINATION: Vital Signs: Temperature is 99 degrees, pulse 84, respirations 25, blood pressure 121/46. General: This is a morbidly obese, elderly female. She has an orotracheal and nasogastric tube in place. Head/eyes/ears/nose/throat: As mentioned above, patient has an orotracheal and a nasogastric tube in place. There is no drainage from her nose or ears. Neck: The patient does not have any pain when she moves her neck. Lungs: Bilateral rhonchi. Cardiovascular: Heart rate is regular. Abdomen: Soft and nontender. The patient in the right groin has an IV catheter. The site is not erythematous or purulent. Neurologic: The patient is awake. She did move her arms and legs when I asked her to. Thorax: The patient has a chest tube placed in the left side of the back. LAB AND X-RAY: The patient's CBC shows a white count of 14,770, hemoglobin 8.7, and platelet count 162,000. Blood gases show a pH of 7.35, a PO2 of 65, and a pCO2 of 49. Creatinine is 2 and GFR is 24. Liver function studies are normal. Chest x-ray shows pulmonary edema. ASSESSMENT AND PLAN: The patient has a Bacteroides and Enterobacter pneumonia and Bacteroides empyema. Her white blood cell count is increasing and I have gone ahead and ordered repeat blood, urine and sputum cultures. The patient indicated that she wanted to talk to me and it was about taking her orotracheal tube out. I told the patient that if the orotracheal tube came out now that there would be a good chance she would not be able to breathe adequately and she would whereas if she left it in for now we would continue trying to wean her off the tube. She indicated to me that she wanted to keep the tube in until such time as she can be weaned off of it. COMORBIDITIES: The patient is elderly and she is obese. She has sleep apnea, gastroesophageal reflux disease, diabetes mellitus, chronic obstructive pulmonary disease and a history of cigarette smoking. cc: MD Zheng Sherwood MD
--- NOTE | 2019-03-18 21:02 | PROVIDER PROGRESS NOTE ---
Progress Note Examined. Full note to follow.
--- NOTE | 2019-03-18 21:24 | PROVIDER PROGRESS NOTE ---
Progress Note Progress Note Dr. Acosta Progress Note/Pulmonary and or critical care We appreciated progress of care, Complications, change in diagnosis, and i nstructions to patient. Subjective: We note the level of consciousness, bed (chair) position, family presence (if any), level of lethargy, feeling of symptoms, and changes from baseline condition/symptom. The patient is lying in bed on AC support. Left chest tube in place. Family at bedside. Objective: Vital Signs: We reviewed EMR current values for Pulse rate, Blood pressure, Pulse rate, respi ratory rate and Pulse oximetry. Also noted other values and trends if present (e.g. I/O, CVP). T 97.9 (no fever in last 24 hours), [place] 76, RR 22, BP 108/44 and SaO2 93% on VM Physical Examination: General: Lying in bed with no acute distress noted. On mechanical ventilation, family at bedside. HEENT: Normocephalic. Atraumatic. Trachea midline. ETT in place. Chest: Mild tachypnea. Symmetrical excursion. Left-sided chest tube in place. Auscultation reveals diminished breathing sounds bilaterally, crackles on right with decreased entry on Left upper lung zone. CVS: Regular rate and rhythm with S1 and S2 appreciated. Abdomen: Soft. Nontender. Nondistended. Normoactive bowel sounds in all 4 quadrants noted. Extremities: BLE and BUE edema 1+. No cyanosis. No clubbing. Neuro: Sedated. Management, face to face evaluation by Dr. Acosta. MARIA VICTORIA Morin did scribing only. Laboratory Results 03/18/19 03/18/19 03/18/19 05:00 05:00 05:34 WBC 14.77 H RBC 2.99 L Hgb 8.7 L D Hct 28.0 L MCV 93.6 MCH 29.1 MCHC 31.1 L RDW Std Deviation 21.4 H Plt Count 162 MPV 13.0 H Immature Gran % (Auto) 0.9 H Neut % (Auto) 65.6 Lymph % (Auto) 15.1 L [place] % (Auto) 11.8 H Eos % (Auto) 5.9 Baso % (Auto) 0.7 Immature Gran # (Auto) 0.14 H Neut # (Auto) 9.67 H Lymph # (Auto) 2.23 [place] # (Auto) 1.75 H Eos # (Auto) 0.87 H Baso # (Auto) 0.11 Specimen Type ARTERIAL Sample Site R RADIAL pH 7.35 pCO2 49 H pO2 65 HCO3 25.7 Base Excess 1.1 Oxyhemoglobin 92.6 L ABG O2 Sat (Calculated) 11.7 L ABG O2 Saturation 96.4 ABG Carboxyhemoglobin 2.80 H ABG Methemoglobin 1.0 Dariusz Test YES A-a O2 Difference 88.0 Total Hemoglobin 8.9 L Lactate 1.10 Blood Gas Modality VENTILATOR Spontaneous Rate 12 FiO2 % 30.0 Tidal Volume 600 PEEP 5.0 Pressure Support Sodium 150 H Potassium 3.4 L Chloride 109 H Carbon Dioxide 27 Anion Gap 14 BUN 52 H Creatinine 2.0 H Estimated GFR/1.73 m2 24 BUN/Creatinine Ratio 26 Glucose 131 H POC Glucose Calculated Osmolality 314 Calcium 8.6 L Total Bilirubin 0.49 AST 12 ALT 5 L Alkaline Phosphatase 69 Total Protein 6.3 Albumin 2.8 L Globulin 3.5 Albumin/Globulin Ratio 0.8 03/18/19 03/18/19 03/18/19 05:44 10:00 11:15 WBC RBC Hgb Hct MCV MCH MCHC RDW Std Deviation Plt Count MPV Immature Gran % (Auto) Neut % (Auto) Lymph % (Auto) [place] % (Auto) Eos % (Auto) Baso % (Auto) Immature Gran # (Auto) Neut # (Auto) Lymph # (Auto) [place] # (Auto) Eos # (Auto) Baso # (Auto) Specimen Type ARTERIAL Sample Site L RADIAL pH 7.32 L pCO2 53 H* pO2 69 HCO3 25.3 Base Excess 0.6 Oxyhemoglobin 92.6 L ABG O2 Sat (Calculated) 14.0 L ABG O2 Saturation 96.5 ABG Carboxyhemoglobin 2.90 H ABG Methemoglobin 1.1 Dariusz Test YES A-a O2 Difference 150.0 Total Hemoglobin 10.7 L Lactate 1.00 Blood Gas Modality VENTILATOR Spontaneous Rate FiO2 % 40.0 Tidal Volume PEEP 5.0 Pressure Support 5.00 Sodium Potassium Chloride Carbon Dioxide Anion Gap BUN Creatinine Estimated GFR/1.73 m2 BUN/Creatinine Ratio Glucose POC Glucose 119 H 137 H Calculated Osmolality Calcium Total Bilirubin AST ALT Alkaline Phosphatase Total Protein Albumin Globulin Albumin/Globulin Ratio 03/18/19 16:22 WBC RBC Hgb Hct MCV MCH MCHC RDW Std Deviation Plt Count MPV Immature Gran % (Auto) Neut % (Auto) Lymph % (Auto) [place] % (Auto) Eos % (Auto) Baso % (Auto) Immature Gran # (Auto) Neut # (Auto) Lymph # (Auto) [place] # (Auto) Eos # (Auto) Baso # (Auto) Specimen Type Sample Site pH pCO2 pO2 HCO3 Base Excess Oxyhemoglobin ABG O2 Sat (Calculated) ABG O2 Saturation ABG Carboxyhemoglobin ABG Methemoglobin Dariusz Test A-a O2 Difference Total Hemoglobin Lactate Blood Gas Modality Spontaneous Rate FiO2 % Tidal Volume PEEP Pressure Support Sodium Potassium Chloride Carbon Dioxide Anion Gap BUN Creatinine Estimated GFR/1.73 m2 BUN/Creatinine Ratio Glucose POC Glucose 123 H Calculated Osmolality Calcium Total Bilirubin AST ALT Alkaline Phosphatase Total Protein Albumin Globulin Albumin/Globulin Ratio Assessment: Empyema with worsening right pleural effusion. Left-sided chest tube initially placed on 03/06/19 and later reinsertion on 03/08/19. Clinically not improving. Acute hypoxemic and hypercapnic respiratory failure. Diastolic congestive heart failure. Chronic renal failure. Severe normocytic anemia. Plan: Continue current treatment and supportive care per admitting and other teams on the case. Will start with comfort measures per family request Discussion with family members about patient's prognosis Appropriate DVT and GI prophylaxis Input was appreciated from Admitting MD and other teams on the case. Evaluation time in minutes: 35 minutes.
[2019-03-19] MEDS ORDERED: ROBINUL PO ONE (12:52)
[2019-03-19] MEDS ORDERED: TRANSDERM-SCOP TD SCH (13:00)
--- NOTE | 2019-03-19 17:03 | PROGRESS NOTE ---
DATE: 03/19/2019 SUBJECTIVE: This morning, Ms. Petersen is seen on the regular medical floor. The daughter was at the bedside. Granddaughter and another male family member were all at the bedside at the time of the encounter. Ms. Petersen herself remains extremely stuporous and is not able to give any interim history. OBJECTIVE: Vital signs: Blood pressure is 141/61, pulse is 94, respiration is about 24, temperature is 97.9 degrees. The patient was saturating 93% on the Venturi mask. General: Ms. Petersen is an 83-year-old elderly female. She is in bed. She is on the Venturi mask. She seems to be taking pulses in her breathing. HEENT: Mucosa was pink. No pink and moist. Anicteric. Acyanotic. Neck: Supple. Chest: Air entry was bilaterally reduced. There is diffuse crackles in the posterior lung gusman. There is also some rhonchi diffusely. Cardiovascular: Regular rate and rhythm. No murmurs, no rubs, no gallops. There is still a pigtail catheter in the left lateral hemithorax. Gastrointestinal: Abdomen was soft. Bowel sounds present. Extremities: No pedal edema. Central Nervous System: Patient is stuporous, nonverbal, will not withdraw to pain. Pupils are lightly pinpoint but they are reactive. She has a lot of rattling on the chest. LABORATORY DATA: No laboratory data this morning. ASSESSMENT: 1. Status post cardiopulmonary arrest. 2. Acute hypoxemic and hypercarbic respiratory failure. The patient was on the ventilator for 6 days, was compassionately extubated yesterday by family request. 3. Multifocal pneumonia complicated with left pleural space empyema and bacteremia. The patient had a pigtail catheter put in the left pleural space. The sputum culture came back positive for Enterobacter cloacae. 4. Severe sepsis complicated with Bacteroides fragilis bacteremia. Subsequent blood cultures have been negative. 5. Acute on chronic kidney disease stage 3 A-B. 6. Gastrointestinal bleed. The patient is status post 6 packed red blood cell transfusions during the hospital course. 7. Escherichia coli urinary tract infection, treated. 8. Hypernatremia. 9. Poor prognosis with prolonged hospitalization. 10. [employer]. In general, Ms. Petersen has been in the hospital for 32 days. She initially presented to [place] because of altered mental status, fatigue and shortness of breath. The patient was under Dr. Michael's care from 02/16/2019 till 02/21/2019 in [place], where she was subsequently transferred to [facility] for higher level of care. Ms Petersen was initially supported with a Venturi mask BiPAP. Unfortunately, on March 13, 2019 she had to be intubated because of respiratory failure. she was found to be bacteremic with left side empyema. She remained on the ventilator until yesterday when the family requested that we extubate her. She has been transitioned to DNR level 1 and comfort care measures only. We have also consulted the social service coordinator today to get hospice to evaluate her for possible GIP. cc: Zheng Baugh MD MTDD
[2019-03-19] MEDS: MORPHINE IV PRN (21:13)
[2019-03-20] MEDS: MORPHINE IV PRN (01:59)
--- NOTE | 2019-03-20 08:10 | PULMONOLOGY PROGRESS NOTE ---
DATE: 03/19/2019 SUBJECTIVE: Interim history is reviewed. The patient has been extubated. She has been transferred to the floor for comfort measures. She currently is poorly responsive. She has audible rhonchi. No family is at the bedside. OBJECTIVE: Vital Signs: The patient has been afebrile for the last 24 hours, blood pressure 129/47, heart rate 92, respiratory rate 22, oxygen saturation 95% on Venturi mask. HEENT: Pupils are equal. Oropharynx appears dry. Neck: Supple. Chest: Rhonchi bilaterally. Cardiac: S1, S2. Abdomen: Obese and soft. Extremities: Slightly cool to the touch. IMPRESSION: An 83-year-old with: 1. Empyema. 2. Gram-negative pneumonia. 3. Hypoxemic respiratory failure. 4. Hypercapnic respiratory failure. 5. Diastolic heart failure. 6. Obesity. 7. Status post cardiopulmonary arrest. DISCUSSION: An 83-year-old with problems outlined above. Currently, she appears to be actively dying and is moribund. She does not appear to be in pain. PLAN: 1. Continue comfort measures. 2. Agree with her resuscitation status, which will allow her to have a natural . 3. No additional recommendations. Will be available if needed. cc: MD Zheng Dietrich MD
--- NOTE | 2019-03-20 20:16 | PROGRESS NOTE ---
DATE: 03/20/2019 SUBJECTIVE: The patient has no major complaints. Now she is pretty much unresponsive. OBJECTIVE: Blood pressure is 107/46, heart rate 98, respiratory rate 12, temperature 98.1 degrees, 96% on 4 L.Cardiovascular: Regular rhythm. Pulmonary: Bilateral breath sounds clear to auscultate. LABORATORY: White count but there is no data. PROBLEM LIST: 1. Status post cardiac arrest. 2. Hypoxic hypercapnic respiratory failure. 3. Multifocal pneumonia with empyema and a thoracostomy tube. 4. Sepsis. 5. Prolonged hospitalization. She is now comfort care. We are going to continue new comfort measures. She has been extubated. I did not see any family present, but we will continue supportive measures and follow. Vital signs have not changed rapidly, but we will continue to monitor. cc: MD Zheng Montero MD
--- NOTE | 2019-03-20 21:20 | GENERAL SURGERY PROGRESS NOTE ---
DATE: 03/20/2019 SUBJECTIVE: The patient was admitted to the floor and made comfort care. She was palliatively extubated, but currently is on Ventimask. She is not responsive, appears comfortable, and increased work of breathing, but does not appear to be agonal. Obviously, no new labs. No new imaging. ASSESSMENT AND PLAN: 83-year-old female who is now on comfort care. We will sign off from a surgical perspective. I do speak to her family regularly as they are patients of mine. I will be available as needed. cc: MD Zheng Weston MD
[2019-03-21] MEDS: MORPHINE IV PRN ×5 (00:37→22:35)
[2019-03-21] MEDS: ATIVAN IV PRN ×3 (02:47→15:19)
--- NOTE | 2019-03-21 21:09 | PROGRESS NOTE ---
DATE: 03/21/2019 SUBJECTIVE: The patient has no major complaints. OBJECTIVE: Vital Signs: Blood pressure is 107/49, heart rate 103, respiratory rate is 14, temperature 96.7. General: Exam really unchanged. Pulmonary: Rhonchi. PROBLEM LIST: Briefly, this is a patient who is status post cardiac arrest and hypercapnic hypoxic respiratory failure. We are continuing comfort care measures. I did not appreciate family. We will continue to monitor. cc: MD Zheng Montero MD
[2019-03-22] MEDS: ATIVAN IV PRN ×2 (00:30→08:54)
[2019-03-22] MEDS: MORPHINE IV PRN ×2 (03:46→10:30)
[2019-03-22 11:33] VITALS: BP 72/17
--- NOTE | 2019-03-23 21:26 | DISCHARGE SUMMARY ---
ADMISSION DATE: 02/15/2019 DISCHARGE DATE: 03/22/2019 PRIMARY CARE PHYSICIAN: Dr. Mehdi Michael. CONSULTATIONS: With Infectious Disease, General Surgery, Cardiology, Pulmonology. ADMISSION DIAGNOSIS: Diagnosis of cholelithiasis and bibasilar atelectasis versus pneumonia and in both lower lobes. She was initially admitted to [place], but was then transferred to [facility] after she was found to have an E. coli UTI and bacteremic. DISCHARGE DIAGNOSES: 1. Status post cardiac arrest with hypercapnic, hypoxic respiratory failure. 2. Placed on comfort care measures and on 03/22/2019 after being extubated. SUMMARY OF FINDINGS: This was an 83-year-old female who presented to the ER via EMS with multiple complaints. Initially she had gotten up, fell on the floor at her house and had been sitting on the floor. EMS could not get her up and they had to use a MegaMover to lift the patient to a stretcher. She was noted to have weakness, general fatigue, decreased appetite, shortness of breath, strong smell to her urine. X-ray showed bilateral lower lobe atelectasis versus pneumonia. They did a chest CT on 02/16/2019 that showed cardiomegaly with pulmonary edema. She had been placed on IV antibiotics. She had an abdomen and pelvic CT on 02/20/2019 that showed the development of basilar atelectasis and infiltrates. She had some liver lesions which were either present on the prior exam, but not seen due to the absence of IV contrast or had developed them since the prior exam and a cholelithiasis and we did an abdominal ultrasound on 02/21/2019 that showed masses in the liver stable from prior and layering sludge in the gallbladder. Infectious Disease was consulted on 02/21/2019 for an E. coli UTI and a Bacteroides fragilis bacteremia. She was placed on the appropriate IV antibiotics. She was transferred to the [facility] and on 02/21/2019, had an ultrasound-guided right common femoral vein central line placement that was placed in ICU. Did an echocardiogram on 02/21/2019 that showed normal right ventricular size and systolic function. Calculated ejection fraction was 68% with no obvious wall motion abnormalities. We consulted Cardiology on 02/21/2019 for a transient atrial fibrillation with rapid ventricular response in the setting of sepsis with bacteremia. The patient had then converted back to a sinus rhythm, so they continued to monitor her. Pulmonary was consulted on 02/25/2019 for hypercarbic respiratory failure. On the morning of this consultation, she was found to be very drowsy and lethargic. Placed on BiPAP at that time. She had an ultrasound-guided thoracentesis that removed about 350 mL with a successful and uncomplicated ultrasound-guided left thoracentesis. Chest CT on 02/28/2019 showed worsening bilateral loculated pleural fluid collections, worsened bibasilar atelectasis and/or pneumonia particularly in the left lobe and worsened mediastinal adenopathy. General Surgery was consulted again on 02/28/2019 for an empyema of the left chest. We did another thoracentesis ultrasound on 03/06/2019 that removed 300 mL with a successful, uncomplicated ultrasound-guided pleural drainage catheter placement. We continued her chest tube to low intermittent suction for the empyema status post a percutaneous catheter placement. She received tPA/DNase 2 doses. Did another chest CT on 02/28/2019 that showed left pleural drainage catheter had been pulled out into the soft tissues. I did another ultrasound thoracentesis on 03/08/2019 with an apparent successful left pleural drainage catheter placement with a 12-Belgian drain, but there had been very little successful drainage of the empyema due to the thick gelatinous material. Her prognosis throughout all this remained very guarded. We did another abdomen and pelvic CT on 03/09/2019 that showed the interval placement of pigtail drainage catheter in left pleural space in the expected position, increased size in the right pleural effusion, development of trace ascites tracking around the liver and layering in the pelvis. Did a pelvic ultrasound on 03/11/2019 that showed visualization of the ovaries, unremarkable pelvic ultrasound otherwise. On 03/12/2019, was called to the patient's room. She had developed a cardiac arrest after she had been given some sips of water and started coughing. Her blood pressure and oxygen sat dropped and a code blue was called, provided chest compressions for 3 to 4 minutes, at that time gave an amp of epinephrine. The patient was started on Diprivan. Conversation was discussed with the daughter and her and they made the decision to make her a DNR level 1 at that time. She was intubated. Chest x-ray on 03/14/2019 showed no change in the endotracheal tube or left-sided chest tube. Improvement in pulmonary edema slightly. It was noted on 03/15/2019. She continued with Bacteroides pneumonia and a left-sided empyema and then developed a superimposed pulmonary infection with Enterobacter and had diarrhea and continued to be in a very guarded poor prognosis. She had severe sepsis at that time and was just continued to follow. She then developed a GI bleed and was status post 6 units of packed red blood cells total during this hospital course. The decision was made yesterday on 03/22/2019 to extubate the patient per family's wishes and at 13:18 the patient . Family notified. Body released to home at 16:15. This a 40 minute discharge with Darshana Petersen. Dictated by MARIA VICTORIA Stubbs for Evelio Castro MD cc: MARIA VICTORIA Stubbs MD Raphael K. Quansah, MD Michael L. Putman
== END 2019-03-22 13:18 | disposition expired | DRG 870 ==
LOC: P.ED 16:57 → P.MEDSURG 22:23 → SUATTDRO 22:23 → P.MEDSURG 23:05 → P.EDIPHOLD 23:05 → ICU 02-21 14:59 → 4N 03-18 23:02
PROVIDERS: ADMIT Internal Medicine; ATTEND Internal Medicine